=== PATIENT | female | born 1950 | race Caucasian/White ===

== ENCOUNTER 2016-11-16 08:07 | Outpatient (CLI) | payer OTHER | END 2016-11-16 08:08 | disposition home or self-care (01) | DX: Z00.00 Encounter for general adult medical examination without abnormal findings (principal) ==

== ENCOUNTER 2017-01-05 08:52 | Outpatient (CLI) | payer OTHER | END 2017-01-05 08:53 | disposition home or self-care (01) | DX: C79.51 Secondary malignant neoplasm of bone (principal); S73.191A Other sprain of right hip, initial encounter; M16.11 Unilateral primary osteoarthritis, right hip ==

== ENCOUNTER 2017-06-29 09:04 | Outpatient (CLI) | payer OTHER ==
[2017-06-29 13:42] LABS: HEMOGLOBIN A1C 0.83 g/dL
== END 2017-06-29 09:05 | disposition home or self-care (01) ==
LOC: LAB.WCP 09:04
PROVIDERS: ATTEND Physician Assistant Medical
DX: R73.9 Hyperglycemia, unspecified (principal)
CPT/HCPCS: 83036

== ENCOUNTER 2017-07-30 12:08 | Outpatient (CLI) | payer OTHER ==
[2017-07-30 19:39] LABS: THYROID STIMULATING HORMONE 4.71 uIU/mL (0.34-5.60)
== END 2017-07-30 12:09 | disposition home or self-care (01) ==
LOC: LAB.WCP 12:08
PROVIDERS: ATTEND Physician Assistant Medical
DX: C73 Malignant neoplasm of thyroid gland (principal); E03.9 Hypothyroidism, unspecified
CPT/HCPCS: 36415; 84432; 84439; 84443; 84481; 86800

== ENCOUNTER 2017-09-25 10:39 | Outpatient (CLI) | payer OTHER ==
[2017-09-25 12:01] LABS: THYROID STIMULATING HORMONE 1.5 uIU/mL (0.34-5.60)
== END 2017-09-25 10:40 | disposition home or self-care (01) ==
LOC: LAB 10:39
PROVIDERS: ATTEND Physician Assistant Medical
DX: E03.9 Hypothyroidism, unspecified (principal); Z79.899 Other long term (current) drug therapy
CPT/HCPCS: 36415; 84439; 84443; 84481

== ENCOUNTER 2017-11-28 11:38 | Outpatient (CLI) | payer MEDICARE, OTHER ==
[2017-11-28 17:31] LABS: HB2 TOTAL 14.6 g/dL; HEMOGLOBIN A1C 0.6 g/dL; HEMOGLOBIN A1C % 5.9 % (4.6-6.2)
== END 2017-11-28 11:39 | disposition home or self-care (01) ==
LOC: LAB 11:38
PROVIDERS: ATTEND Physician Assistant Medical
DX: E11.9 Type 2 diabetes mellitus without complications (principal); Z79.899 Other long term (current) drug therapy
CPT/HCPCS: 36415; 82947; 83036

== ENCOUNTER 2018-01-24 10:50 | Outpatient (CLI) | payer MEDICARE ==
--- NOTE | 2018-01-24 18:46 | CONSULTATION NOTE ---
Palliative Care Consultation - Referral Referring Provider: Dr. 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 The pain is multifactorial in origin, but mostly attributed to the lesions in her bones, with areas of intensity lower back; right hip, and now more intensely left hip. Her pain is currently been managed on fentanyl 25 mcg patch, originally had last for about 2 days, now lasting barely 24 hours. She is limited by her fact she cannot tolerate medications for breakthrough medication. When she gets desperate, she does use Dilaudid but needs to premedicate with antinausea medicine as well as Benadryl at times for itching. She describes her pain today at a 5 out of 10, but does exacerbate up to 8 out of 10, on a good day as in the first day of her patch reports 2 out of 10. Her pain is exacerbated with movement, weightbearing, and activity. That she tends to limit her activity and ambulation. She was originally diagnosed with metastatic carcinoid to the liver in 2014 secondary to symptoms of abdominal discomfort, diarrhea, flushing for which she was found to have a large hepatic mass. She did receive a partial hepatectomy , removing 60% of her liver, with some improvement in her symptoms for about 6-8 months. Unfortunately this was found to be neuroendocrine in nature, metastatic with unknown primary. She has had work ups regarding trying to find the primary, including colonoscopy, and small bowel evaluation via capsules. She also had diagnosed in 07/2015 at thyroid mass, and received a total thyroidectomy, with a diagnosis of Hurthie-cell, did not have time to recover from the first. She was found in May 2016 to have lesions to the spine, with a biopsy confirmed diagnosis to L2 08/2016. She also had knee surgery during this time, and recovery has been complicated because of her intolerance to opioids, she does have severe nausea and vomiting. She was found to have progressive bone mets she was started on monthly lanreotide and Xgeva. She did receive palliative radiation 05/2017 to her right hip and spine, initially with some response but now recurrent in severity. Her most recent imaging done on 11/07/2017 of pelvic MRI, shows increased metastatic bone lesions at the lumbar lower spine, sacrum, pelvis, and visualized proximal femurs which are new since previous study compared on 02/2016. As well as her thoracic MRI of the spine shows diffuse osseous metastatic disease, mild degenerative central canal stenosis and foraminal stenosis, but no evidence of cord or into canal soft tissue metastatic disease. I am concerned though are the size of the lesions at the T4 is 1.2 x 1 cm, 1.4 x 1.1 anterior T10 vertebral lesion. 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 When she followed up with radiation oncology again, she She understands that she is no longer a further candidate, or would benefit because of her disease burden and numerous lesions. Medical/Surgical History - Past Medical History Cardiovascular: reports: Hypertension Neuro: reports: None Endocrine/Autoimmune: reports: Type 2 diabetes (New diagnosis for her, has been attributed to her medication use, she has been quite frustrated in trying to address control.) GI: reports: GERD, Chronic diarrhea [employer] OPERATION: reports: Ovarian cysts (stable right ovarian cyst) : reports: Renal insuffiency HEENT: reports: Glaucoma Psych: reports: Depression (Reports exacerbation of depression after she had thyroid surgery, was started on been ofloxacin with some improvement, she reports she was "crying all the time". She is feeling with her uncontrolled pain, some persistent depressive symptoms.), Anxiety Musculoskeletal: reports: Osteoarthritis MRSA Hx?: No - Past Surgical History Ortho: reports: ACL reconstruction, Other Derm: reports: Debridement - Substance History Use: Uses substance without health or social issues: Alcohol (reports moderate use) Social History - Living Situation Living arrangement: At home Living Situation: With spouse/s.o. Support System: Patient is [place] [place]. She has lived on [place] for the last 15 years, came here via [facility]. 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 They do return to [place] frequently to see family. Her is a physics and astronomy professor, he recently retired as well. They are getting ready to go on a trip for a couple weeks in [place], it has been difficult with her rare diagnoses, to get information are really understand prognosis and expected journey with disease. Have two children. Family History - Family History Family History: Mother: (unknown), Hypertension ( of old age at 92) , Father: , Other family: Medications/Allergies - Medications Home Medications: Ambulatory Orders Medication Instructions Recorded Confirmed Hydrochlorothiazide 12.5 mg PO DAILY 08/31/15 01/24/18 Oxymetazoline HCl [Afrin] 2 spray NS QPM 08/31/15 01/24/18 Prochlorperazine [Compazine] 5 mg PO DAILY PRN 08/31/15 01/24/18 Losartan [Cozaar] 50 mg PO DAILY 10/26/15 01/24/18 diltiaZEM CD [Cardizem Cd] 180 mg PO DAILY 10/26/15 01/24/18 Levothyroxine Sodium 137 mcg PO DAILY 03/08/16 01/24/18 Omeprazole [PriLOSEC] 20 mg PO DAILY 03/08/16 01/24/18 Rizatriptan Benzoate [Rizatriptan] 5 mg PO ONCE 03/08/16 01/24/18 HYDROmorphone [Dilaudid] 2 - 4 mg PO Q4HR PRN 01/09/17 01/24/18 Venlafaxine [Effexor] 75 mg PO DAILY 01/09/17 01/24/18 Zolpidem [Ambien] 10 mg PO DAILY PM PRN 01/09/17 01/24/18 Lanreotide Acetate [Somatuline 120 mg SQ ONCE 04/10/17 01/24/18 Depot] metFORMIN [Glucophage] 500 mg PO BID 07/31/17 01/24/18 Timolol 0.5% Ophth Drops [Timoptic 1 drops EACHEYE BID 08/28/17 01/24/18 0.5% Ophth Drops] fentaNYL [Fentanyl 25mcg patch] 37 mcg TOP Q72H 12/18/17 01/24/18 Gabapentin 100 mg PO ACHS 01/24/18 01/24/18 - Allergies Allergies/Adverse Reactions: Allergies Allergy/AdvReac Type Severity Reaction Status Date / Time No Known Drug Allergies Allergy Verified 11/26/15 13:18 Review of Systems - Constitutional Constitutional: reports: Fatigue, Poor appetite, Weight loss - Eyes Eyes: reports: Vision loss, Corrective lenses - Ears, Nose & Throat Ears, Nose & Throat: reports: Nosebleeds - Cardiovascular Cardiovascular: reports: Decr. exercise tolerance. denies: Chest pain - Respiratory Respiratory: denies: Cough - Gastrointestinal Gastrointestinal: reports: Diarrhea (has loose stools with fluctuating pattern) , Nausea, Vomiting (has intermittent retching without warning nausea; has not attributed this to anything specific), Poor appetite, Early satiety. denies: Reflux/heartburn - Genitourinary Genitourinary: reports: Frequency - Musculoskeletal Musculoskeletal: reports: Back pain, Muscle aches, Stiffness, Limited range of motion, Muscle weakness, Joint pain - Integumentary Integumentary: reports: Dryness - Neurological Neurological: reports: General weakness - Psychiatric Psychiatric: reports: Depression, Anxiety - Endocrine Endocrine: reports: Diabetes type 2 - Hematologic/Lymphatic Hematologic/Lymphatic: denies: Recurrent infections - All Other Systems All Other Systems: reports: Reviewed and negative Physical Exam - Vital Signs Temperature: 37.3 C Pulse Rate: 99 Respiratory Rate: 18 Blood Pressure: 131/93 - Physical Exam General Appearance: positive: Mild distress Eyes Bilateral: positive: Normal inspection, No scleral icterus ENT: positive: No signs of dehydration Neck: positive: Trachea midline Cardiovascular: positive: Tachycardia (reports at baseline is usually elevated) Respiratory: positive: Breath sounds nml Abdomen: positive: Soft, Nml bowel sounds Skin: positive: Pallor Extremities: positive: No pedal edema Neurologic/Psychiatric: positive: Oriented x3, Depressed mood/affect, Flat affect Palliative Care - POLST Patient has POLST: No Pain: Pain worsening, Location (see HPI new/worsening in left hip; right hip; back and radiating around to rib area) Tiredness/Fatigue: Moderate (4-6) Drowsiness/Sedation: Mild (1-3) Nausea: None Depression: Moderate (4-6) (Patient does describe persistent feelings of depressive symptoms, some increased perceptions of herself being depressed, appears tends to isolate self, is withdrawn from many social activities, this is unclear to tease out if this is depression or mostly pain.) Anxiety: Moderate (4-6) (Noted some underlying anxiety regarding talking about overall expectation of disease trajectory, seriousness of illness, and "the complexity" of her care and few [id number] answers. She does report they have found an online community, as well as a conference that they have attended for those who are having similar experiences with rare cancers.) Dyspnea: None Anorexia: Moderate (4-6) (Patient does appear to have some early satiety, decreased intake, with recent 10 pound weight loss.) Sleep: Sleeps poorly Feelings of wellbeing/Perceived Quality of Life: Poor, Worsening Performance Status: Patient ambulating, but does demonstrate pain behaviors with sitting to standing , and weightbearing. She does ambulate a short distances. She is able to do her own ADLs. I suspect her activity is quite limited by her pain. I would put her at a palliative care performance status of 70% - Palliative Care Discussion: Patient has felt poorly for several years, most recently with exacerbation of pain has limited her activity and activity tolerance. She has had difficulty finding adequate pain control given her intolerance of opioids, with severe nausea and vomiting. Is able to reflect some on the impact of her quality of life, which has decreased significantly, with exacerbation of her depression. Has been recently retired, hoping to travel, many unknowns regarding her functional status and prognosis. Perceives quality of life as decreasing. Results - Lab Results Lab results reviewed: Yes Impression and Recommendations - Palliative Care Impression: This is a oliver 67-year-old woman with metastatic carcinoid tumor involving the liver, unknown primary, status post liver mastectomy and metastatic disease to multiple bones. She presents with uncontrolled pain related to her bony metastases. She does have high symptom burden, including pain, fatigue, anorexia, recent weight loss, depression, anxiety, and decreased functional status. Palliative care visit today to establish rapport, and will be following for pain and symptom management. Recommendations/Counseling Done: 1. Pain of neoplastic origin. Given patient's multiple opioid intolerances, would recommend we trial methadone. I suspect given she does have some mild central stenosis in T10-T11, would benefit from a NMDA component as well as opioid receptors. Would recommend we trial methadone 2.5 mg prior to rotation to total from Fentanyl to evaluate if able to tolerate without nausea and vomiting. Patient baseline tachycardia, would like to get EKG prior to get QTc, has not had one in [facility] recently. Given patient leaving town tomorrow, discussed would like to wait until home and can evaluate response, particularly if she has a negative do not want this to interfere with her vacation. Patient' s pain is poorly controlled, will go ahead and increase her fentanyl 25 mcg to 37, will add 12 mcg patch. They have been instructed if she has untoward effects, or sedation can remove but would recommend increasing the baseline dose. Also given the need to evaluate another mode of medication, and to support her pain management, did initiate gabapentin 100 mg at at bedtime, will evaluate her tolerance and side effects and titrate this up slowly, prescriptions given for both fentanyl and gabapentin. Equal analgesic for endpoint for methadone if patient tolerates 37 would be 17 mg in 24 hours, her current dosing would be 12 mg. Will initiate if patient wants to move forward, at appointment on returning. They will contact me if there is any questions, would recommend continuing titrating gabapentin up to tolerance. 2. Diabetes type 2. Patient with questions regarding her blood sugars, her a.m. blood sugars have been running about 160. She has gone per her report from a A1c of 7.6-5.9. Given patient's history of diarrhea, I am wondering if she would not do better on Lantus. Would consider referral to diabetic management, for continuous monitoring, and transition based on this. I suspect her diabetes is complicated by her disease process and liver function. 3. Anorexia. Patient has had 10 pound weight loss over the last few months. Reports this is to do with early satiety, taste changes. She has been using Ensure only one can, we did discuss increasing caloric intake, this could include things such as puddings, protein bars, things that are not quite as filling as shake. 4. Fatigue. This is multifactorial in origin, I suspect much of her activity is limited by her pain, is encouraged trying to find a balance with activity level and energy. I suspect this is also impacted somewhat by her depression. 5. Depression. Counseling provided to normalize her current grief and loss process, given the uncertainty in the face of her diagnosis. She was can ask her primary care provider to increase her consider increasing her been ofloxacin , would be in agreement with this. If she does not see her prior to her next appointment will go ahead and recommend increased dosing. 6. Diarrhea. Patient tends to have frequent loose stools, is not using Imodium. We did discuss in the context of fluid status, metabolic balance, would be good to keep this down to 1-2 episodes a day. Counseling provided to encourage use of Imodium and, if not effective can look at Lomotil. 7. Advanced care planning patient living with serious illness, some unknowns regarding prognosis and diagnosis causing increased anxiety and concern. Certainly the sequela of any kind of fracture with her bone metastases, would further add to her demise and concerns regarding quality of life. Will see patient on a regular basis, as build rapport, will address advanced directives as well. Time Spent: 60 minutes with greater than 50% of this done in counseling regarding options regarding pain management and goals for improving functionality. Palliative care to follow and provide anticipatory guidance and support.
== END 2018-01-24 10:51 | disposition home or self-care (01) ==
LOC: PC 10:50
PROVIDERS: ATTEND Nurse Practitioner Adult Health
DX: Z51.5 Encounter for palliative care (principal); G89.3 Neoplasm related pain (acute) (chronic); C78.7 Secondary malignant neoplasm of liver and intrahepatic bile duct; C79.51 Secondary malignant neoplasm of bone; E11.9 Type 2 diabetes mellitus without complications; R63.0 Anorexia; R53.83 Other fatigue; F32.9 Major depressive disorder, single episode, unspecified; R19.7 Diarrhea, unspecified; R11.2 Nausea with vomiting, unspecified; Z79.4 Long term (current) use of insulin; Z79.891 Long term (current) use of opiate analgesic
CPT/HCPCS: 99205

== ENCOUNTER 2018-02-12 14:02 | Outpatient (CLI) | payer MEDICARE, OTHER ==
[2018-02-12 15:04] LABS: HB2 TOTAL 14.3 g/dL; HEMOGLOBIN A1C 0.58 g/dL; HEMOGLOBIN A1C % 5.9 % (4.6-6.2)
[2018-02-12 15:27] LABS: THYROID STIMULATING HORMONE 1.96 uIU/mL (0.34-5.60)
[2018-02-12 15:28] LABS: FREE T4 (FREE THYROXINE) 0.86 ng/dL (0.58-1.64)
[2018-02-13 14:01] LABS: HEPATITIS C ANTIBODY NON-REACTIVE (NON-REACTIVE)
== END 2018-02-12 14:03 | disposition home or self-care (01) ==
LOC: LAB 14:02
PROVIDERS: ATTEND Physician Assistant Medical
DX: D75.89 Other specified diseases of blood and blood-forming organs (principal); E11.9 Type 2 diabetes mellitus without complications; E03.9 Hypothyroidism, unspecified; Z79.899 Other long term (current) drug therapy; Z11.59 Encounter for screening for other viral diseases
CPT/HCPCS: 36415; 82607; 83036; 84439; 84443; 84481; 86803

== ENCOUNTER 2018-02-12 14:30 | Outpatient (CLI) | payer MEDICARE, OTHER ==
--- NOTE | 2018-02-12 20:35 | CONSULTATION NOTE ---
Palliative Care Follow Up - Referral Referring Provider: Dr. Monica Thomas Time of Visit: [id number] Referral setting: 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 Her most impactful symptom as far as her quality of life is her pain, this is multifactorial in origin, but mostly can be attributed to the lesions in her bones. The areas of intensity are her lower back, right hip, and now most intensely in her left hip. I had increased her fentanyl to 37.5 mg, and initiated gabapentin at 100 mg at bedtime. She has been limited by the fact she has significant intolerance to opioids, include uncontrolled nausea and vomiting. She reports her pain is improved, her patches lasting the 3 days, her pain rating today is 2 out of 10. On observation she does get from sitting to standing better she is walking a little bit more comfortably, and is able to report her pain is better. She has been recently on a road trip with her , and did fairly well with the titration. She still continues with fatigue, poor activity tolerance, she has had fluctuating diarrhea, it does increase in frequency about 2-3 times a day closer to the time of her shot. She saw her primary care provider Sherry hawkins yesterday, and they did increase her Effexor. She is scheduled to see the oncologist today as well, she does receive monthly lanreotide and Xgeva. Social History - Living Situation Living arrangement: At home Living Situation: With spouse/s.o. Support System: has recently retired, they have taken an RV trip, which does sound like went well. She [place] go [place], this is her home, she is looking forward to her trip. Medications/Allergies - Medications Home Medications: Ambulatory Orders Medication Instructions Recorded Confirmed Hydrochlorothiazide 12.5 mg PO DAILY 08/31/15 02/12/18 Oxymetazoline HCl [Afrin] 2 spray NS QPM 08/31/15 02/12/18 Prochlorperazine [Compazine] 5 mg PO DAILY PRN 08/31/15 02/12/18 Losartan [Cozaar] 50 mg PO DAILY 10/26/15 02/12/18 diltiaZEM CD [Cardizem Cd] 180 mg PO DAILY 10/26/15 02/12/18 Levothyroxine Sodium 137 mcg PO DAILY 03/08/16 02/12/18 Omeprazole [PriLOSEC] 20 mg PO DAILY 03/08/16 02/12/18 Rizatriptan Benzoate [Rizatriptan] 5 mg PO ONCE 03/08/16 02/12/18 HYDROmorphone [Dilaudid] 2 - 4 mg PO Q4HR PRN 01/09/17 02/12/18 Venlafaxine [Effexor] 3 tab PO DAILY 01/09/17 02/12/18 Zolpidem [Ambien] 10 mg PO DAILY PM PRN 01/09/17 02/12/18 Lanreotide Acetate [Somatuline 120 mg SQ ONCE 04/10/17 02/12/18 Depot] metFORMIN [Glucophage] 500 mg PO BID 07/31/17 02/12/18 Timolol 0.5% Ophth Drops [Timoptic 1 drops EACHEYE BID 08/28/17 02/12/18 0.5% Ophth Drops] fentaNYL [Fentanyl 25mcg patch] 37.5 mcg TOP Q72H 12/18/17 02/12/18 Gabapentin 300 mg PO ACHS 01/24/18 02/12/18 Loperamide [Imodium] 2 mg PO DAILY PRN 01/29/18 02/12/18 - Allergies Allergies/Adverse Reactions: Allergies Allergy/AdvReac Type Severity Reaction Status Date / Time No Known Drug Allergies Allergy Verified 11/26/15 13:18 Review of Systems - Constitutional Constitutional: reports: Fatigue, Poor appetite, Weight loss - Ears, Nose & Throat Ears, Nose & Throat: reports: Nasal congestion - Cardiovascular Cardiovascular: reports: Decr. exercise tolerance - Gastrointestinal Gastrointestinal: reports: Diarrhea, Vomiting (has had episodes of vomiting without nausea;), Bloating, Poor appetite (taste changes; doesn't like meat), Early satiety - Genitourinary Genitourinary: reports: Frequency (at bedtime; R/O UA yesterday at provider visit) - Musculoskeletal Musculoskeletal: reports: Stiffness, Limited range of motion (bilateral hips), Muscle weakness - Neurological Neurological: reports: General weakness - Psychiatric Psychiatric: reports: Depression (did get antidepressant increased) - Endocrine Endocrine: reports: Diabetes type 2 (has "shakes at times" taking BS through day to get sense of fluctuations as AIC had improved) - Hematologic/Lymphatic Hematologic/Lymphatic: denies: Anemia, Recurrent infections - All Other Systems All Other Systems: reports: Reviewed and negative Physical Exam - Vital Signs Temperature: 36.9 C Pulse Rate: 94 Respiratory Rate: 18 Blood Pressure: 122/80 - Physical Exam General Appearance: positive: No acute distress Eyes Bilateral: positive: Normal inspection ENT: positive: No signs of dehydration Neck: positive: Trachea midline Cardiovascular: positive: Other (EKG from MD visit without QT prolongation; NSR) Respiratory: positive: No respiratory distress Skin: positive: Pallor, Dryness Extremities: positive: No pedal edema Neurologic/Psychiatric: positive: Oriented x3, Mood/affect nml Palliative Care - POLST Patient has POLST: No Pain: Pain improved, Location (See HPI) Tiredness/Fatigue: Moderate (4-6) Drowsiness/Sedation: None Nausea: None Depression: Mild (1-3) Anxiety: None Dyspnea: None Anorexia: Mild (1-3) Sleep: Variable sleep pattern (up for frequency) Constipation: No Feelings of wellbeing/Perceived Quality of Life: Fair, Acceptable, Improved Performance Status: Patient has not increased activity significantly, but is feeling like she is moving easier. 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 She is feeling somewhat encouraged with her pain improved, she did have a nice trip in the with her . Is looking forward to going to [place] next month. Continue to work on building rapport and trust. Results - Lab Results Lab results reviewed: Yes Impression and Recommendations - Palliative Care Impression: This is a oliver 67-year-old woman with metastatic carcinoid tumor involving the liver, unknown primary, status post liver resection for metastatic disease to multiple bones. She does present today with improved pain control, though continues with high symptom burden including fatigue, anorexia, and decreased functional status. Palliative care to continue to provide support for pain and symptom management. Recommendations/Counseling Done: 1. Pain of neoplastic origin. Counseling regarding continuing current regimen of fentanyl, does appear she is tolerating without undue side effects, it is lasting to 3 days with the increase to 37 mcg. She is getting some relief, I suspect it is in combination with the gabapentin. We did discuss increasing the gabapentin slowly, secondary to her multiple medication reactions. She will increase to 200 mg for 1 week, then up to 300 mg for 1 week, and then we will discuss. We did discuss as a "plan B" that methadone is still an option to trial, given her current response and is tolerating this without difficulty, will continue with current regimen. She did though get a EKG, her QTC was within normal limits and without concern. 2. Diabetes type 2. She did meet with her primary care Sherry hawkins yesterday , continue to weigh benefits and burdens, particularly with concern the Metformin adding to her diarrhea. Patient's blood sugars to see him though to fluctuate through the day, or taking intermittent blood sugars, discussed ongoing continuous measuring device, I did give her permission to contact Sherry regarding a referral for continuous monitoring and recommendations for management. 3. Anorexia. Patient reports she may have lost more weight, this is related to early satiety, taste changes. She is using the boost, her perception is she does not like breakfast, but is doing lunch, and less for dinner. Did discuss the options for pharmacologic intervention, which include Megace that the evidence is not great as far as efficacy, dexamethasone but given we are trying to stabilize her blood sugars this would not be a good option, she recently just increased her Effexor this may be of help, so would not want to change her to mirtazapine, and the last would be cannabis for which she is not too thrilled to pursue. We did discuss on the ice a days for her to get out, fresh air, she is going to [place] she does like the food of local markets. We also discussed and counseled improved pain management and depression may improve her intake as well. 4. Fatigue. This is multifactorial in origin. As patient's pain improves, counseling regarding increasing activity. She is hesitant as does not want exacerbate her pain. We did discuss a referral for physical therapy/pool therapy. Also encouraged on her trip and [place] to pull walking, given her bony metastases the buoyancy of the water often helps with strength training which would be of help for protecting her bones as well. Suspect she has had some muscle wasting with her weight loss. Did encourage her for ambulation progressive. 5. Depression. Patient is having her Effexor increased to 3 tabs, again encouraged decrease isolation. 6. Diarrhea. Patient has not increased her use of Imodium, she does tend to have increased frequency closer to her shot, she does not feel this is an problematic at this point in time. 7. Advanced care planning. This was not addressed today. Time Spent: 40 minutes with greater than 50% of this done in counseling regarding pain and symptom management coordination of care with PCP for diabetic referral, and anticipatory guidance
== END 2018-02-12 14:31 | disposition home or self-care (01) ==
LOC: PC 14:30
PROVIDERS: ATTEND Nurse Practitioner Adult Health
DX: Z51.5 Encounter for palliative care (principal); G89.3 Neoplasm related pain (acute) (chronic); C78.7 Secondary malignant neoplasm of liver and intrahepatic bile duct; C79.51 Secondary malignant neoplasm of bone; R63.0 Anorexia; R53.83 Other fatigue; F32.9 Major depressive disorder, single episode, unspecified; R19.7 Diarrhea, unspecified; Z79.4 Long term (current) use of insulin; Z79.891 Long term (current) use of opiate analgesic; M62.81 Muscle weakness (generalized)
CPT/HCPCS: 99215

== ENCOUNTER 2018-03-04 09:05 | Outpatient (CLI) | payer MEDICARE, OTHER ==
[2018-03-04 09:43] LABS: CHOL/HDL RATIO 2.5 (<4.4); CHOLESTEROL 266 mg/dL; HDL CHOLESTEROL 107 mg/dL; LDL CHOLESTEROL,CALCULATED 130 mg/dL; LDL/HDL RATIO 1.2 (<4.4); VLDL CHOLESTEROL 29 mg/dL
== END 2018-03-04 09:06 | disposition home or self-care (01) ==
LOC: LAB 09:05
PROVIDERS: ATTEND Physician Assistant Medical
DX: E78.5 Hyperlipidemia, unspecified (principal)
CPT/HCPCS: 36415; 80061; 83721

== ENCOUNTER 2018-03-07 11:45 | Outpatient (CLI) | payer MEDICARE, OTHER ==
--- NOTE | 2018-03-07 19:24 | CONSULTATION NOTE ---
Palliative Care Follow Up - Referral Referring Provider: Dr. Monica Thomas Time of Visit: [id number] [place] [facility] [place] Reason: Pain of neoplastic origin/bone mets - Information Sources Records reviewed: Previous records reviewed History/Review of Systems obtained from: Patient, Family ( Werner at visit) Exam limitations: No limitations - History of Present Illness Update Brief HPI Update: This is a oliver 67-year-old woman who has a complex history regarding her rare cancer, she has metastatic carcinoid to the liver and bones with unknown primary. She does have fairly high symptom burden, with pain, fatigue, intermittent nausea and vomiting, anorexia, and weight loss. Goal is to focus on things to improve quality of life, while living with the uncertainty of her prognosis. Social History - Living Situation Living arrangement: At home Living Situation: With spouse/s.o. (spouse recently retired; planning trip back to [facility] to visit family; three children-one in [facility]) Medications/Allergies - Medications Home Medications: Ambulatory Orders Medication Instructions Recorded Confirmed Hydrochlorothiazide 12.5 mg PO DAILY 08/31/15 03/07/18 Oxymetazoline HCl [Afrin] 2 spray NS QPM 08/31/15 03/07/18 Prochlorperazine [Compazine] 5 mg PO Q6HR PRN 08/31/15 03/07/18 Losartan [Cozaar] 50 mg PO DAILY 10/26/15 03/07/18 diltiaZEM CD [Cardizem Cd] 180 mg PO DAILY 10/26/15 03/07/18 Levothyroxine Sodium 137 mcg PO DAILY 03/08/16 03/07/18 Omeprazole [PriLOSEC] 20 mg PO DAILY 03/08/16 03/07/18 Rizatriptan Benzoate [Rizatriptan] 5 mg PO ONCE 03/08/16 03/07/18 HYDROmorphone [Dilaudid] 2 - 4 mg PO Q4HR PRN 01/09/17 03/07/18 Venlafaxine [Effexor] 3 tab PO DAILY 01/09/17 03/07/18 Zolpidem [Ambien] 10 mg PO DAILY PM PRN 01/09/17 03/07/18 Lanreotide Acetate [Somatuline 120 mg SQ ONCE 04/10/17 03/07/18 Depot] metFORMIN [Glucophage] 500 mg PO QDBREAKFAST 07/31/17 03/07/18 Timolol 0.5% Ophth Drops [Timoptic 1 drops EACHEYE BID 08/28/17 03/07/18 0.5% Ophth Drops] fentaNYL [Fentanyl 25mcg patch] 37.5 mcg TOP Q72H 12/18/17 03/07/18 Gabapentin 300 mg PO QPM 01/24/18 03/07/18 Loperamide [Imodium] 2 mg PO DAILY PRN 01/29/18 03/07/18 Metformin HCl [Metformin HCl ER] 500 mg PO QPM 03/06/18 03/07/18 - Allergies Allergies/Adverse Reactions: Allergies Allergy/AdvReac Type Severity Reaction Status Date / Time No Known Drug Allergies Allergy Verified 11/26/15 13:18 Review of Systems - Constitutional Constitutional: reports: Fatigue, Poor appetite, Weight loss - Ears, Nose & Throat Ears, Nose & Throat: reports: Other (taste changes; dislikes protien) - Cardiovascular Cardiovascular: reports: Decr. exercise tolerance - Respiratory Respiratory: reports: SOB with exertion - Gastrointestinal Gastrointestinal: reports: Nausea (intermittent; fluctuating; no pattern; bad day Sunday with retching; uses compazine with relief), Poor appetite, Early satiety. denies: Diarrhea - Musculoskeletal Musculoskeletal: reports: Muscle weakness - Integumentary Integumentary: reports: Dryness - Neurological Neurological: reports: General weakness - Psychiatric Psychiatric: reports: Depression (improved from baseline) - Endocrine Endocrine: reports: Diabetes type 2 (working with [employer]; will use continous monitor on return from vacation) - All Other Systems All Other Systems: reports: Reviewed and negative Physical Exam - Physical Exam General Appearance: positive: No acute distress Eyes Bilateral: positive: Normal inspection Respiratory: positive: No respiratory distress Neurologic/Psychiatric: positive: Oriented x3, Mood/affect nml Palliative Care - POLST Patient has POLST: No Pain: Pain improved, Location (Pain mostly in pelvis, no pain at rest, most the pain comes from weightbearing and prolonged ambulation, this is mostly noted bilaterally in her hips on today's left greater than right, she does feel her current regimen of fentanyl 37 mcg and gabapentin 300 mg at night is working, does not feel like she needs adjustments, though of note she will be increasing activity as she travels.) Tiredness/Fatigue: Moderate (4-6) Drowsiness/Sedation: None (does take nap daily; not change from baseline) Nausea: Moderate (4-6) Depression: Mild (1-3) Anxiety: Mild (1-3) Dyspnea: None Anorexia: Moderate (4-6), Weight loss Sleep: Variable sleep pattern Constipation: No - Palliative Care Discussion: Patient had MRI for follow-up on disease progression, both she and her are somewhat anxious regarding the results. Reflection on just the complicated journey they have been on, with multiple unknowns, concerned about unknown prognosis, and what to expect in the future. Patient and 's understanding is currently patient is with metastases to the bone, but worried about progression and the sequela what that might mean, particularly if it impact might mean disability or more so impact on her function in the future. Both feeling somewhat unsettled, acknowledged the feelings normalized to feelings of grief and loss particularly with a rare cancer and little information to guide the way. Impression and Recommendations - Palliative Care Impression: This is a oliver 67-year-old woman with metastatic carcinoid tumor involving the liver, unknown primary, status post liver resection and metastatic disease to multiple bones. Patient presents today with pain fairly well controlled, high anxiety regarding pending outcome of exams, but has been somewhat more active though still has considerable fatigue. Palliative care to continue provide support for pain and symptom management and anticipatory guidance in the context of an unknown trajectory Recommendations/Counseling Done: 1. Pain of neoplastic origin. Patient's current regimen is working well, discussed titration of fentanyl versus gabapentin, decision was made to give her gabapentin 100 mg capsules, as she increase her activity her finds increase in pain will add 100 mg in the a.m. every 4 days up to 600 mg unless experiences undue side effects or reaches goal of accepted pain control. 2. Diabetes type 2. She is meeting With test driller, will be working in the future and trying to mitigate some of her particular hypoglycemic episodes. 3. Weight loss. Counseling regarding integrating supplements into her daily routine and plan, does feel like she will do better when she is back in [place], with her "comfort foods". Did encourage small frequent meals, she does have taste dislikes regarding protein, recommended supplementing with Ensure/boost- like products. 4. Fatigue. This is multifactorial in origin. Patient has been more active, did encourage again when she is traveling to consider increased activity in the pool with pull walking. 5. Nausea/vomiting. Did encourage at first sign of nausea or discomfort to take her Compazine, not to let it and progressed to retching and vomiting. Patient acknowledged she tends to "cut it out". 6. anxiety. Patient with acknowledge concerns regarding the uncertainty of her journey, prognosis, and upcoming scans. Supportive listening provided. On prescriptions provided for fentanyl patch, gabapentin 300s, and gabapentin 100. Will make contact after she returns from her trip to set new appointment, will await outcome of scans for further identification of support needs. Palliative care continue to provide support and building rapport.
== END 2018-03-07 11:46 | disposition home or self-care (01) ==
LOC: PC 11:45
PROVIDERS: ATTEND Nurse Practitioner Adult Health
DX: Z51.5 Encounter for palliative care (principal); G89.3 Neoplasm related pain (acute) (chronic); C79.51 Secondary malignant neoplasm of bone; E11.9 Type 2 diabetes mellitus without complications; R63.4 Abnormal weight loss; R53.83 Other fatigue; R11.2 Nausea with vomiting, unspecified; F41.9 Anxiety disorder, unspecified; Z79.84 Long term (current) use of oral hypoglycemic drugs; Z79.891 Long term (current) use of opiate analgesic; M62.81 Muscle weakness (generalized); F32.9 Major depressive disorder, single episode, unspecified
CPT/HCPCS: 99215

== ENCOUNTER 2018-03-13 13:47 | Outpatient (CLI) | payer MEDICARE, OTHER ==
--- NOTE | 2018-03-18 12:05 | Mammography Report ---
DIGITAL SCREENING MAMMOGRAM: 03/13/2018 CLINICAL INDICATION: A 67-year-old for screening. COMPARISON: 08/2016, 02/2014, 08/2012, 06/2010. TECHNIQUE: Routine CC and MLO projections were obtained of the breasts. FINDINGS: The breasts again demonstrate scattered fibroglandular densities bilaterally. Coarse and punctate, typically benign calcifications are present. No suspicious masses, clustered microcalcifications, or regions of architectural distortion are identified. IMPRESSION: BENIGN FINDINGS. RECOMMENDATION: Routine annual screening unless otherwise clinically indicated. BI-RADS CATEGORY 2 - BENIGN FINDINGS. STANDARD QUALIFYING STATEMENTS: 1. This examination was reviewed with the aid of Computer-Aided Detection (CAD). 2. A negative or benign imaging report should not delay biopsy if clinically suspicious findings are present. Consider surgical consultation if warranted. More than 5% of cancers are not identified by imaging. 3. Dense breasts may obscure an underlying neoplasm. TD: 03/18/2018 11:45
== END 2018-03-13 13:48 | disposition home or self-care (01) ==
LOC: DI.N 13:47
PROVIDERS: ATTEND Physician Assistant Medical
DX: Z12.31 Encounter for screening mammogram for malignant neoplasm of breast (principal)
CPT/HCPCS: 77067

== ENCOUNTER 2018-04-09 13:48 | Outpatient (CLI) | payer MEDICARE, OTHER ==
--- NOTE | 2018-04-09 22:02 | CONSULTATION NOTE ---
Palliative Care Follow Up - Referral Referring Provider: Dr. 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 She recently returned from her vacation in [place] for 3 weeks, but does present with increased pain and discomfort, and she is visibly upset with the news of more progression of her disease. She is awaiting the final approval of her new chemotherapeutic drug everolimus, which will be oral combined with her Lanreotide. She is currently on gabapentin 300 mg twice daily, fentanyl 37.5 mcg and was instructed earlier this week to add 12, as it was worsening she added 25 for a total of 62.5 mcg and is still finding a fairly significant level of discomfort particularly bilaterally in her shoulders left greater than right. She does have her baseline spinal pain as well as bilateral hip pain. Social History - Living Situation Living arrangement: At home Living Situation: With spouse/s.o. (They have recently returned from [place] where she feels very supported by her family.) Medications/Allergies - Medications Home Medications: Ambulatory Orders Medication Instructions Recorded Confirmed Hydrochlorothiazide 12.5 mg PO DAILY 08/31/15 04/09/18 Oxymetazoline HCl [Afrin] 2 spray NS QPM 08/31/15 04/09/18 Prochlorperazine [Compazine] 5 mg PO Q6HR PRN 08/31/15 04/09/18 Losartan [Cozaar] 50 mg PO DAILY 10/26/15 04/09/18 [id number] CD [Cardizem Cd] 180 mg PO DAILY 10/26/15 04/09/18 Levothyroxine Sodium 137 mcg PO DAILY 03/08/16 04/09/18 Omeprazole [PriLOSEC] 20 mg PO DAILY 03/08/16 04/09/18 Rizatriptan Benzoate [Rizatriptan] 5 mg PO ONCE 03/08/16 04/09/18 HYDROmorphone [Dilaudid] 2 - 4 mg PO Q4HR PRN 01/09/17 04/09/18 Venlafaxine [Effexor] 3 tab PO DAILY 01/09/17 04/09/18 Zolpidem [Ambien] 10 mg PO DAILY PM PRN 01/09/17 04/09/18 Lanreotide Acetate [Somatuline 120 mg SQ ONCE 04/10/17 04/09/18 Depot] metFORMIN [Glucophage] 500 mg PO QDBREAKFAST 07/31/17 04/09/18 Timolol 0.5% Ophth Drops [Timoptic 1 drops EACHEYE BID 08/28/17 04/09/18 0.5% Ophth Drops] fentaNYL [Fentanyl 25mcg patch] 62.5 mcg TOP Q72H 12/18/17 04/09/18 Gabapentin 300 mg PO BID 01/24/18 04/09/18 Loperamide [Imodium] 2 mg PO DAILY PRN 01/29/18 04/09/18 Metformin HCl [Metformin HCl ER] 500 mg PO QPM 03/06/18 04/09/18 - Allergies Allergies/Adverse Reactions: Allergies Allergy/AdvReac Type Severity Reaction Status Date / Time No Known Drug Allergies Allergy Verified 11/26/15 13:18 Review of Systems - Constitutional Constitutional: reports: Fatigue - Gastrointestinal Gastrointestinal: reports: Good appetite (did well in [place] with her comfort foods). denies: Diarrhea, Nausea, Vomiting (retching has decreased) - Musculoskeletal Musculoskeletal: reports: Stiffness, Limited range of motion, Muscle weakness - All Other Systems All Other Systems: reports: Other (limited ROS focused review on pain given distress) Physical Exam - Physical Exam General Appearance: positive: Moderate distress Eyes Bilateral: positive: Normal inspection ENT: positive: No signs of dehydration Neck: positive: Trachea midline Respiratory: positive: No respiratory distress Skin: positive: Dryness Extremities: positive: No pedal edema Neurologic/Psychiatric: positive: Oriented x3, Depressed mood/affect (tearful) Palliative Care - POLST Patient has POLST: No Pain: Pain worsening, Location (see HPI) Tiredness/Fatigue: Moderate (4-6) Drowsiness/Sedation: None Nausea: None Depression: None Anxiety: None Dyspnea: None Anorexia: None Constipation: No - Palliative Care Discussion: Patient feeling overwhelmed with most recent oncology visit, discussed we could just focus on her pain and revisit other issues at follow-up visit, she is in agreement with this. Impression and Recommendations - Palliative Care Impression: This is a oliver 67-year-old woman with metastatic carcinoid now with progressive disease in the liver, progressive bone metastases, with increasing pain and new metastatic disease noted in shoulder. Palliative care to provide ongoing support for pain and symptom management, with focus on pain today. Recommendations/Counseling Done: 1. Pain of neoplastic origin. At this point in time it is on hold for radiation as it only lasted a few weeks last time for her without significant relief, will focus on pain medications currently and revisit later to point if needed. Given patient's description of her pain sharp shooting pains down radiating from her shoulder, she is currently on gabapentin 300 mg twice daily, first step will be to increase her gabapentin to 3 times daily. Patient denies any increase in sedation with increase with this. She is currently just increased her fentanyl patch to 62.5 mcg, Still has some 37.5 patches left, prescription was given for 25 mcg patches, requested she try a few patch changes while awaiting response to the gabapentin, but if significantly increased pain will go ahead and move her up to 75 mcg of fentanyl. Prescription given for 10 patches. Written instructions were provided, and agreed to follow-up on Sunday if further questions or different strategy needed. 2. Depression. Normalized grief and loss process regarding this, patient does appear to be and has expressed she is an introvert related to her feelings, will continue to offer opportunities for support if accepted. Otherwise will honor and allow patient to take the lead on processing her news of disease progression. Time Spent: 30 minutes with greater than 50% of this done on counseling regarding pain and titration safety.
== END 2018-04-09 13:49 | disposition home or self-care (01) ==
LOC: PC 13:48
PROVIDERS: ATTEND Nurse Practitioner Adult Health
DX: Z51.5 Encounter for palliative care (principal); G89.3 Neoplasm related pain (acute) (chronic); C78.7 Secondary malignant neoplasm of liver and intrahepatic bile duct; C79.51 Secondary malignant neoplasm of bone; F32.9 Major depressive disorder, single episode, unspecified; Z79.891 Long term (current) use of opiate analgesic
CPT/HCPCS: 99214

== ENCOUNTER 2018-04-12 14:35 | Outpatient (CLI) | payer MEDICARE, OTHER ==
--- NOTE | 2018-04-12 17:48 | CONSULTATION NOTE ---
Palliative Care Follow Up - Referral Referring Provider: Dr. Monica Thomas Time of Visit: [id number] [place] [facility] [place] Reason: Pain of neoplastic origin - Information Sources Records reviewed: Previous records reviewed Medications/Allergies - Medications Home Medications: Ambulatory Orders Medication Instructions Recorded Confirmed Hydrochlorothiazide 12.5 mg PO DAILY 08/31/15 04/09/18 Oxymetazoline HCl [Afrin] 2 spray NS QPM 08/31/15 04/09/18 Prochlorperazine [Compazine] 5 mg PO Q6HR PRN 08/31/15 04/09/18 Losartan [Cozaar] 50 mg PO DAILY 10/26/15 04/09/18 [id number] CD [Cardizem Cd] 180 mg PO DAILY 10/26/15 04/09/18 Levothyroxine Sodium 137 mcg PO DAILY 03/08/16 04/09/18 Omeprazole [PriLOSEC] 20 mg PO DAILY 03/08/16 04/09/18 Rizatriptan Benzoate [Rizatriptan] 5 mg PO ONCE 03/08/16 04/09/18 HYDROmorphone [Dilaudid] 2 - 4 mg PO Q4HR PRN 01/09/17 04/09/18 Venlafaxine [Effexor] 3 tab PO DAILY 01/09/17 04/09/18 Zolpidem [Ambien] 10 mg PO DAILY PM PRN 01/09/17 04/09/18 Lanreotide Acetate [Somatuline 120 mg SQ ONCE 04/10/17 04/09/18 Depot] metFORMIN [Glucophage] 500 mg PO QDBREAKFAST 07/31/17 04/09/18 Timolol 0.5% Ophth Drops [Timoptic 1 drops EACHEYE BID 08/28/17 04/09/18 0.5% Ophth Drops] fentaNYL [Fentanyl 25mcg patch] 62.5 mcg TOP Q72H 12/18/17 04/09/18 Gabapentin 300 mg PO BID 01/24/18 04/09/18 Loperamide [Imodium] 2 mg PO DAILY PRN 01/29/18 04/09/18 Metformin HCl [Metformin HCl ER] 500 mg PO QPM 03/06/18 04/09/18 - Allergies Allergies/Adverse Reactions: Allergies Allergy/AdvReac Type Severity Reaction Status Date / Time No Known Drug Allergies Allergy Verified 11/26/15 13:18
--- NOTE | 2018-04-12 17:59 | CONSULTATION NOTE ---
Palliative Care Follow Up - Referral Referring Provider: Dr. Monica Thomas Time of Visit: [id number] Referral setting: [facility] [place] Reason: Pain of neoplastic origin/Depression - Information Sources Records reviewed: Previous records reviewed History/Review of Systems obtained from: Patient, Family ( Werner at visit) Exam limitations: No limitations - History of Present Illness Update Brief HPI Update: This is a oliver 67-year-old woman has complex history regarding her rare cancer , she has metastatic carcinoid to liver status post liver metastasectomy with recently noted recurrent liver lesions, and bony lesions with progressive disease including new findings in her shoulder with increased pain. She is awaiting to start her oral chemotherapeutic drug of everolimus, she is here to get her when that she denied and Xgeva today. Her current fentanyl dosing is at 62.5 mcg, as well as has increased her gabapentin to 300 mg 3 times daily. She did add topical CBD to her left shoulder, is found this to provide dramatic difference for her. She is feeling currently her pain is at a good level with good control. Social History - Living Situation Living arrangement: At home Living Situation: With spouse/s.o. (recently traveled, supportive family, difficult with progression of dx) Medications/Allergies - Medications Home Medications: Ambulatory Orders Medication Instructions Recorded Confirmed Hydrochlorothiazide 12.5 mg PO DAILY 08/31/15 04/09/18 Oxymetazoline HCl [Afrin] 2 spray NS QPM 08/31/15 04/09/18 Prochlorperazine [Compazine] 5 mg PO Q6HR PRN 08/31/15 04/09/18 Losartan [Cozaar] 50 mg PO DAILY 10/26/15 04/09/18 [id number] CD [Cardizem Cd] 180 mg PO DAILY 10/26/15 04/09/18 Levothyroxine Sodium 137 mcg PO DAILY 03/08/16 04/09/18 Omeprazole [PriLOSEC] 20 mg PO DAILY 03/08/16 04/09/18 Rizatriptan Benzoate [Rizatriptan] 5 mg PO ONCE 03/08/16 04/09/18 HYDROmorphone [Dilaudid] 2 - 4 mg PO Q4HR PRN 01/09/17 04/09/18 Venlafaxine [Effexor] 3 tab PO DAILY 01/09/17 04/09/18 Zolpidem [Ambien] 10 mg PO DAILY PM PRN 01/09/17 04/09/18 Lanreotide Acetate [Somatuline 120 mg SQ ONCE 04/10/17 04/09/18 Depot] metFORMIN [Glucophage] 500 mg PO QDBREAKFAST 07/31/17 04/09/18 Timolol 0.5% Ophth Drops [Timoptic 1 drops EACHEYE BID 08/28/17 04/09/18 0.5% Ophth Drops] fentaNYL [Fentanyl 25mcg patch] 62.5 mcg TOP Q72H 12/18/17 04/09/18 Gabapentin 300 mg PO TID 01/24/18 04/12/18 Loperamide [Imodium] 2 mg PO DAILY PRN 01/29/18 04/09/18 Metformin HCl [Metformin HCl ER] 500 mg PO QPM 03/06/18 04/09/18 - Allergies Allergies/Adverse Reactions: Allergies Allergy/AdvReac Type Severity Reaction Status Date / Time No Known Drug Allergies Allergy Verified 11/26/15 13:18 Review of Systems - Constitutional Constitutional: reports: Fatigue, Weight gain (in [place] with comfort/family foods) - Neurological Neurological: reports: General weakness - Psychiatric Psychiatric: reports: Depression - Endocrine Endocrine: reports: Diabetes type 2 (has not been checking blood sugars; currently not planning to follow up; notes when hypoglycemic and able to eat to address;) Physical Exam - Physical Exam General Appearance: positive: No acute distress, Alert Eyes Bilateral: positive: Normal inspection Respiratory: positive: No respiratory distress Skin: positive: Other (tanned from recent vacation) Extremities: positive: No pedal edema, Other (increased ROM with improved pain in left arm) Neurologic/Psychiatric: positive: Oriented x3, Depressed mood/affect, Flat affect Palliative Care - POLST Patient has POLST: No Pain: Pain improved (Discussed whether to proceed as had not picked up 75 mcg patches, they do have at least 2 rounds of patch changes with the 25, and 37.5 s , will contact me if want 62.5's. She is feeling a little bit sedated on today , will leave as is has encouraged as far as his CBD response, did discuss at length difficulty on dosing and becoming just "an experiment of one" around this.) Tiredness/Fatigue: Moderate (4-6) Drowsiness/Sedation: Mild (1-3) Nausea: None - Palliative Care Discussion: Initiated discussion regarding feelings around progressive disease, there is some resistance for her- regarding the cost and going on to oral chemotherapy, patient remains very guarded about her feelings. Will explore as allowed. Did try to provide information as far as weighing benefits and burdens with each round of chemotherapy, and making a decision as one goes along, does express wishes for her to proceed. We did discuss this is often a team approach , but ultimately the decision is hers. Gently tried to support normalizing her feelings of grief and loss with her current situation and the unknowns that are facing her. Did offer ongoing support or exploration at any point that would be of help to her. Impression and Recommendations - Palliative Care Impression: This is a oliver 67-year-old woman with metastatic carcinoid the liver and lungs and bones, now with known progressive disease. Pain is better controlled today, currently satisfied with regimen, has added CBD with good success topically. Palliative care to provide ongoing support for pain and symptom management, again with focus on pain today. Recommendations/Counseling Done: 1. Pain of neoplastic origin. He should not has increased her gabapentin to 300 mg 3 times daily, with some slight sedation, she is also at fentanyl 62.5 mcg. We will continue to explore over the next week as far as if needs new prescription, and if further titration needed. Counseling regarding use of CBD , titration of medications, and side effects. 2. Metastatic carcinoid to liver, bones, pending new chemotherapeutic regimen with oral chemotherapy. Requested patient follow up with either myself or the clinic if it is not had education regarding new medication. She does have prochlorperazine at home, but may need more aggressive regimen, will need to follow-up on most common side effects, will mail her teaching sheets. 3. Depression. Will continue to normalize grief and loss issues, explore as patient allows, would like to introduce conversation regarding advanced care planning, will allow patient to take the lead to provide information as indicated Time Spent: 20 minutes with greater than 50% of this time done in counseling regarding pain management and anticipatory guidance
== END 2018-04-12 14:36 | disposition home or self-care (01) ==
LOC: PC 14:35
PROVIDERS: ATTEND Nurse Practitioner Adult Health
DX: Z51.5 Encounter for palliative care (principal); G89.3 Neoplasm related pain (acute) (chronic); C7A.00 Malignant carcinoid tumor of unspecified site; C7B.03 Secondary carcinoid tumors of bone; C7B.02 Secondary carcinoid tumors of liver; C7B.09 Secondary carcinoid tumors of other sites; F32.9 Major depressive disorder, single episode, unspecified; E11.9 Type 2 diabetes mellitus without complications; Z79.899 Other long term (current) drug therapy; Z79.891 Long term (current) use of opiate analgesic; Z79.84 Long term (current) use of oral hypoglycemic drugs
CPT/HCPCS: 99213

== ENCOUNTER 2018-05-07 13:32 | Outpatient (CLI) | payer MEDICARE, OTHER ==
--- NOTE | 2018-05-07 19:54 | CONSULTATION NOTE ---
Palliative Care Follow Up - Referral Referring Provider: Dr. 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 She has been on lanreotide since 09/2016. She is to start Afinitor, that there has been a delay in receiving her prescription. Palliative care is following her pain and symptom management, and psychosocial support as allowed. Review of her current regimen in the context of finding balance between sedation and pain relief, she is currently satisfied with her fentanyl at 62.5 mcg every 3 days, gabapentin 100 mg a.m., 300 mg p.m., with the addition of CBD topical to her right shoulder and arm pain. Her pain is located bilaterally in her hips, new right upper quadrant pain, and right shoulder and arm painHer most significant symptom at this point in time is impacting quality of life, is actually fatigue, this is demonstrated in activity intolerance, needing to rest more and pace activities Social History - Living Situation Living arrangement: At home Living Situation: With spouse/s.o. (Getting ready for vacation with family/ grandkids) Medications/Allergies - Medications Home Medications: Ambulatory Orders Medication Instructions Recorded Confirmed Hydrochlorothiazide 12.5 mg PO DAILY 08/31/15 05/07/18 Oxymetazoline HCl [Afrin] 2 spray NS QPM 08/31/15 05/07/18 Prochlorperazine [Compazine] 5 mg PO Q6HR PRN 08/31/15 05/07/18 Losartan [Cozaar] 50 mg PO DAILY 10/26/15 05/07/18 [id number] CD [Cardizem Cd] 180 mg PO DAILY 10/26/15 05/07/18 Levothyroxine Sodium 137 mcg PO DAILY 03/08/16 05/07/18 Omeprazole [PriLOSEC] 20 mg PO DAILY 03/08/16 05/07/18 Rizatriptan Benzoate [Rizatriptan] 5 mg PO ONCE 03/08/16 05/07/18 HYDROmorphone [Dilaudid] 2 - 4 mg PO Q4HR PRN 01/09/17 05/07/18 Venlafaxine [Effexor] 3 tab PO DAILY 01/09/17 05/07/18 Zolpidem [Ambien] 10 mg PO DAILY PM PRN 01/09/17 05/07/18 Lanreotide Acetate [Somatuline 120 mg SQ .MONTHLY 04/10/17 05/07/18 Depot] metFORMIN [Glucophage] 500 mg PO QDBREAKFAST 07/31/17 05/07/18 Timolol 0.5% Ophth Drops [Timoptic 1 drops EACHEYE BID 08/28/17 05/07/18 0.5% Ophth Drops] fentaNYL [Fentanyl 25mcg patch] 62.5 mcg TOP Q72H 12/18/17 05/07/18 Gabapentin 300 mg PO QPM 01/24/18 05/07/18 Loperamide [Imodium] 2 mg PO DAILY PRN 01/29/18 05/07/18 Metformin HCl [Metformin HCl ER] 500 mg PO QPM 03/06/18 05/07/18 Gabapentin 100 mg PO QDBREAKFAST 05/07/18 05/07/18 LORazepam [Ativan] 0.5 mg PO Q6HR PRN 05/07/18 05/07/18 Ondansetron [Zuplenz] 8 mg PO Q8HR PRN 05/07/18 05/07/18 - Allergies Allergies/Adverse Reactions: Allergies Allergy/AdvReac Type Severity Reaction Status Date / Time No Known Drug Allergies Allergy Verified 11/26/15 13:18 Review of Systems - Constitutional Constitutional: reports: Fatigue (more consistant), Weakness, Weight stable - Eyes Eyes: reports: Vision loss - Cardiovascular Cardiovascular: reports: Lightheadedness, Decr. exercise tolerance - Respiratory Respiratory: denies: SOB at rest - Gastrointestinal Gastrointestinal: reports: Nausea (intermittent about 2x a week;), Bloating, Early satiety. denies: Diarrhea (improved) - Musculoskeletal Musculoskeletal: reports: Stiffness, Muscle weakness - Integumentary Integumentary: reports: Dryness - Neurological Neurological: reports: General weakness, Other (Patient reports significant fall in [place], including left facial trauma, with residual left facial droop. This does appear to be improving, minimal residual noted on exam today) - Psychiatric Psychiatric: reports: Depression (feels controlled at this time) - Endocrine Endocrine: reports: Diabetes type 2 (does not check BS), Hypothyroidism - Hematologic/Lymphatic Hematologic/Lymphatic: denies: Anemia, Recurrent infections - All Other Systems All Other Systems: reports: Reviewed and negative Physical Exam - Vital Signs Temperature: 37.1 C Pulse Rate: 109 Respiratory Rate: 18 Blood Pressure: 121/80 - Physical Exam General Appearance: positive: No acute distress, Alert Eyes Bilateral: positive: Normal inspection ENT: positive: No signs of dehydration Neck: positive: Trachea midline Cardiovascular: positive: Regular rate & rhythm, Tachycardia Respiratory: positive: Diminished in bases. negative: Wheezes, Rales, Rhonchi Abdomen: positive: Soft, Nml bowel sounds, Tenderness (right upper point tenderness to deep palpation), Distended Skin: positive: Pallor, Dryness Extremities: positive: No pedal edema Neurologic/Psychiatric: positive: Oriented x3, Mood/affect nml, Weakness Palliative Care - POLST Patient has POLST: No Pain: Pain improved, Location (bilateral hip pain; right upper quadrant pain about 2 weeks-constant; right shoulder pain radiating to elbow; currently on Gabapentin 100 mg AM, 300 mg PM; feels right balance of sedation/pain relief; added CBD topical to right arm 2/ a day with relief; baseline fentanyl 62.5 mcg ; feels good balance currently with improved relief) Tiredness/Fatigue: Severe (7-10) (activity intolerance and overall fatigue vs sedation) Drowsiness/Sedation: Mild (1-3) Nausea: None Depression: Mild (1-3) Anxiety: None Dyspnea: None Anorexia: Mild (1-3) (dislikes meat; probably less than adequate fluid intake) Constipation: No Results - Lab Results Lab results reviewed: Yes Lab and Imaging Results: GFR 56 Impression and Recommendations - Palliative Care Impression: This is a oliver 67-year-old woman with progressive metastatic carcinoid to the liver, and bone. Pain currently controlled on her current regimen. Palliative care to continue provide support for pain and symptom management, and building rapport. Recommendations/Counseling Done: 1. Pain of neoplastic origin. Prescription provided for fentanyl 62.5 mcg patches, patient getting ready to travel, will need prescription early, may need some facilitation with pharmacy/insurance. She has decreased her gabapentin to a level acceptable of sedation, Counseled given patient's poor opioid tolerance, to use the gabapentin 100 mg for breakthrough pain or titrate up if increasing activity or pain. 2. Metastatic carcinoid to liver and bones, still pending new chemotherapeutic regimen with oral chemotherapy. Prescription provided for Lorazepam 0.5 mg tabs 1/2-1 tab every 4 hours, as needed to have another medication for nausea. Reports has used Compazine 5 mg about 2 times a week for intermittent nausea related to her disease/side effects of medication. She does have ondansetron available as well, she will call for any assistance needed for management of side effects of new therapy. 3. Depression. Patient feels currently antidepressant at a good level, does not feel overwhelmed or tearful. Is looking forward to several trips they have planned, encouraged to continue to set goals and focus on quality of life. She is looking forward to time with her grand kids on the boat next week Time Spent: 30 minutes was given 50% of this done in counseling regarding pain medication regimen, review of symptoms and symptom burden, and coordination of care with oncology.
== END 2018-05-07 13:33 | disposition home or self-care (01) ==
LOC: PC 13:32
PROVIDERS: ATTEND Nurse Practitioner Adult Health
DX: Z51.5 Encounter for palliative care (principal); G89.3 Neoplasm related pain (acute) (chronic); C7A.00 Malignant carcinoid tumor of unspecified site; C7B.03 Secondary carcinoid tumors of bone; C7B.02 Secondary carcinoid tumors of liver; R11.0 Nausea; T50.905A Adverse effect of unspecified drugs, medicaments and biological substances, initial encounter; F32.9 Major depressive disorder, single episode, unspecified; E11.9 Type 2 diabetes mellitus without complications; Z79.899 Other long term (current) drug therapy; Z79.891 Long term (current) use of opiate analgesic; Z91.81 History of falling; Z79.84 Long term (current) use of oral hypoglycemic drugs
CPT/HCPCS: 99214

== ENCOUNTER 2018-05-09 14:50 | Outpatient (CLI) | payer MEDICARE, OTHER ==
--- NOTE | 2018-05-09 15:38 | XRAY Report ---
Procedure Date: 05/09/2018 Accession Number: [id number] / [id number] Procedure: XR - Shoulder 3 View RT CPT Code: FULL RESULT: EXAM: Humerus RT, Shoulder 3 View RT DATE: 05/09/2018 3:21 PM CLINICAL HISTORY: SEVERE SHOULDER PAIN, BONE METS COMPARISON: None. TECHNIQUE: 3 views of the right shoulder and 2 views of the right humerus. FINDINGS: Right shoulder: Bones: Normal. No fracture or bone lesion. Joints: The glenohumeral and acromioclavicular joints are normal. Soft tissues: The visualized hemithorax is unremarkable. No soft tissue swelling. Right humerus: Bones: Normal. No fracture or bone lesion. Soft tissues: The visualized hemithorax is unremarkable. No soft tissue swelling. IMPRESSION: Normal shoulder radiography. Normal right humerus radiography. [facility]
--- NOTE | 2018-05-09 15:38 | XRAY Report ---
Procedure Date: 05/09/2018 Accession Number: [id number] / [id number] Procedure: XR - Humerus RT CPT Code: FULL RESULT: EXAM: Humerus RT, Shoulder 3 View RT DATE: 05/09/2018 3:21 PM CLINICAL HISTORY: SEVERE SHOULDER PAIN, BONE METS COMPARISON: None. TECHNIQUE: 3 views of the right shoulder and 2 views of the right humerus. FINDINGS: Right shoulder: Bones: Normal. No fracture or bone lesion. Joints: The glenohumeral and acromioclavicular joints are normal. Soft tissues: The visualized hemithorax is unremarkable. No soft tissue swelling. Right humerus: Bones: Normal. No fracture or bone lesion. Soft tissues: The visualized hemithorax is unremarkable. No soft tissue swelling. IMPRESSION: Normal shoulder radiography. Normal right humerus radiography. [facility]
== END 2018-05-09 14:51 | disposition home or self-care (01) ==
LOC: DI 14:50
PROVIDERS: ATTEND Nurse Practitioner Adult Health
DX: M25.511 Pain in right shoulder (principal); C79.51 Secondary malignant neoplasm of bone

== ENCOUNTER 2018-06-04 13:43 | Outpatient (CLI) | payer MEDICARE, OTHER ==
--- NOTE | 2018-06-04 20:17 | CONSULTATION NOTE ---
Palliative Care Follow Up - Referral Referring Provider: Dr. 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 She has been ongoing lanreotide since September 2016, she has just started Afinitor this last month. Her greatest symptom has been fatigue and some mouth discomfort. Her labs are stable to day. Her history is complex as it is considered a fairly rare tumor, and most recently has presented with recurrent liver lesions, progressive bony metastases, and increasing pain. Palliative care is providing support regarding pain and symptom management, her most recent fentanyl dose was 62.5 mcg, she added an extra 25 today as her pain had been increased most specifically bilaterally in her hips and in her thoracic spine. Her shoulders which had exacerbated a point where we did take a look at shoulder x-rays, has come down with the increase in gabapentin, patient does not tolerate oral opioids so is difficult to dose with breakthrough pain medication. Patient also on gabapentin 300 mg 3 times daily, often forgets the middle of the day dosing. Patient did have a oliver vacation , with her grandchildren and children over the last several weeks, though she had fatigue, she did enjoy taking a break and did tolerate fairly well her oral chemotherapy during that time. I am she did have some retching over the weekend , is unable to identify precipitating factor, though does acknowledge closer to the time of her shot it seems to be more likely to be problematic. She has found the Compazine and ondansetron effective, she continues to have poor appetite and likes to take mostly soups. Social History - Living Situation Living arrangement: At home Living Situation: With spouse/s.o. (Patient's spouse recently retired, patient had to retire previously secondary to her diagnosis. I are trying to find a balance as far as activity and patient's fatigue level. Family very supportive , but patient is somewhat of an introvert. She is planning a trip to [place] again in June, is looking forward to this and she will be spending time with a good friend.) Medications/Allergies - Medications Home Medications: Ambulatory Orders Medication Instructions Recorded Confirmed Hydrochlorothiazide 12.5 mg PO DAILY 08/31/15 06/04/18 Oxymetazoline HCl [Afrin] 2 spray NS QPM 08/31/15 06/04/18 Prochlorperazine [Compazine] 5 mg PO Q6HR PRN 08/31/15 06/04/18 Losartan [Cozaar] 50 mg PO DAILY 10/26/15 06/04/18 diltiaZEM CD [Cardizem Cd] 180 mg PO DAILY 10/26/15 06/04/18 Levothyroxine Sodium 137 mcg PO DAILY 03/08/16 06/04/18 Omeprazole [PriLOSEC] 20 mg PO DAILY 03/08/16 06/04/18 Rizatriptan Benzoate [Rizatriptan] 5 mg PO ONCE 03/08/16 06/04/18 Venlafaxine [Effexor] 3 tab PO DAILY 01/09/17 06/04/18 Zolpidem [Ambien] 10 mg PO DAILY PM PRN 01/09/17 06/04/18 Lanreotide Acetate [Somatuline 120 mg SQ .MONTHLY 04/10/17 06/04/18 Depot] metFORMIN [Glucophage] 500 mg PO QDBREAKFAST 07/31/17 06/04/18 Timolol 0.5% Ophth Drops [Timoptic 1 drops EACHEYE BID 08/28/17 06/04/18 0.5% Ophth Drops] fentaNYL [Fentanyl 25mcg patch] 75 mcg TOP Q72H 12/18/17 06/04/18 Gabapentin 300 mg PO TID 01/24/18 06/04/18 Loperamide [Imodium] 2 mg PO DAILY PRN 01/29/18 06/04/18 Metformin HCl [Metformin HCl ER] 500 mg PO QPM 03/06/18 06/04/18 LORazepam [Ativan] 0.5 mg PO Q6HR PRN 05/07/18 06/04/18 Ondansetron [Zuplenz] 8 mg PO Q8HR PRN 05/07/18 06/04/18 Lidocaine HCl [Lidocaine HCl 15 ml MM Q3H PRN #100 ml 05/10/18 06/04/18 Viscous] Everolimus [Afinitor] 10 mg PO DAILY 05/11/18 06/04/18 - Allergies Allergies/Adverse Reactions: Allergies Allergy/AdvReac Type Severity Reaction Status Date / Time No Known Drug Allergies Allergy Verified 11/26/15 13:18 Review of Systems - Constitutional Constitutional: reports: Fatigue (fairly profound; feels exhausted, needing to sleep differentiates from sedation), Weakness, Poor appetite, Weight loss (184) . denies: Fever - Ears, Nose & Throat Ears, Nose & Throat: reports: Nasal congestion, Dry mouth, Other (mouth lesion end of tongue tender) - Cardiovascular Cardiovascular: reports: Exertional dyspnea, Decr. exercise tolerance - Respiratory Respiratory: reports: Cough (cough in am; clears by noon; no wheezing/tightness) , SOB with exertion. denies: SOB at rest - Gastrointestinal Gastrointestinal: reports: Vomiting (retching episodes two days in last week), Bloating, Poor appetite, Early satiety. denies: Constipation, Diarrhea - Musculoskeletal Musculoskeletal: reports: Stiffness, Muscle weakness, Joint pain (bilateral hip pain) - Integumentary Integumentary: reports: Dryness, Other (reports bulge in right calf; has notice for about a month with shaving; no tenderness or pain) - Neurological Neurological: reports: General weakness - Psychiatric Psychiatric: reports: Depression (enjoyed family vacation) - Endocrine Endocrine: reports: Diabetes type 2, Hypothyroidism - All Other Systems All Other Systems: reports: Reviewed and negative Physical Exam - Vital Signs Temperature: 36.4 C Pulse Rate: 96 Respiratory Rate: 20 Blood Pressure: 122/78 - Physical Exam General Appearance: positive: No acute distress Eyes Bilateral: positive: Normal inspection ENT: positive: No signs of dehydration. negative: Oral lesions (no noticable lesion) Neck: positive: No JVD, Trachea midline Cardiovascular: positive: Tachycardia Respiratory: positive: Breath sounds nml Abdomen: positive: Non-tender, Soft, Nml bowel sounds Skin: positive: Dryness, Other (swelling noted with weight bearing right calf; soft nonfixed; nontender; size of a [place] about 2-3 cm above skin plane) Extremities: positive: No pedal edema Neurologic/Psychiatric: positive: Oriented x3, Mood/affect nml, Weakness Palliative Care - POLST Patient has POLST: No Pain: Pain worsening (bilteral hip pain/thoracic spine) Tiredness/Fatigue: Severe (7-10) Drowsiness/Sedation: Moderate (4-6) Nausea: None Depression: Moderate (4-6) Anxiety: Moderate (4-6) Dyspnea: None Anorexia: Moderate (4-6) Sleep: Sleeps well Constipation: No Feelings of wellbeing/Perceived Quality of Life: Fair Performance Status: Patient reports less energy, less activity tolerance. Patient is sleeping more. She is able to ambulate, but her gait is measured. - Palliative Care Discussion: Patient has been pleased regarding first round of Afinitor, and is somewhat frustrated regarding still concerned about getting prescription. Patient had enjoyed family vacation, and has goal to spend time in [place] again but this time with a girlfriend.Continues to struggle with fairly high symptom burden, palliative care to continue to provide support as patient allows. Results - Lab Results Lab results reviewed: Yes Lab and Imaging Results: reviewed with patient and Impression and Recommendations - Palliative Care Impression: This is a oliver 68-year-old woman with metastatic carcinoid to the liver and bone, presenting with progressive disease. Patient finished first month of Afinitor, most pronounced side effect has been fatigue. Patient does have progressive pain, will continue to titrate medication to find balance between sedation and pain relief. Palliative care to continue to provide support for pain and symptom management. Recommendations/Counseling Done: 1. Pain and neoplastic origin secondary to bony metastases. Patient did get relief with increased gabapentin for her bilateral shoulder pain, though does have difficulty remembering to take it in the middle of the day. She is currently on gabapentin 300 mg 3 times daily. She does report increased pain bilaterally in her hips and thoracic spine, did add a 25 mcg today to her 62. We did discuss in the context of new prescriptions, will go ahead and write for 75 mcg. Patient will evaluate response in the balance of sedation and pain relief. Patient does not tolerate oral opioids, does have some 25 mcg patches if needs to add to the regimen. 2. Fatigue, multifactorial in origin. Most likely is attributed to her initiation of her Afinitor. Patient is pacing activity, will continue to evaluate, may offer Ritalin if continued to be problematic. 3. Nausea/vomiting. This has not been extensive, has been responsive to Compazine and ondansetron. Patient notes pattern closer to the time of shot. Encouraged to contact me if has further or persistent nausea. 4. Depression. Patient did enjoy a family vacation, she is making good eye contact and seems very excited about her pending trip. Encouraged patient to continue to pursue things that bring her tabby. Patient is very introverted, have offered up openings if patient would like to further explore emotional responses. Will continue to take patients lead and develop rapport. 5. Soft lower right tissue mass. This is of unknown etiology, but certainly of concern given patient's underlying diagnosis. Does not present as signs or symptoms of clot, nor fixed or tender. Encourage patient to continue to monitor , if worsens to contact myself or health care team for further workup. Time Spent: 30 minutes was given 50% of this done around counseling for opioid and pain management, providing review of symptom management.
== END 2018-06-04 13:44 | disposition home or self-care (01) ==
LOC: PC 13:43
PROVIDERS: ATTEND Nurse Practitioner Adult Health
DX: Z51.5 Encounter for palliative care (principal); G89.3 Neoplasm related pain (acute) (chronic); C22.8 Malignant neoplasm of liver, primary, unspecified as to type; C79.51 Secondary malignant neoplasm of bone; R53.83 Other fatigue; R11.2 Nausea with vomiting, unspecified; F32.9 Major depressive disorder, single episode, unspecified; Z79.899 Other long term (current) drug therapy; M62.81 Muscle weakness (generalized); E11.9 Type 2 diabetes mellitus without complications; R22.41 Localized swelling, mass and lump, right lower limb
CPT/HCPCS: 99214

== ENCOUNTER 2018-07-02 14:44 | Outpatient (CLI) | payer MEDICARE, OTHER ==
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
== END 2018-07-02 14:45 | disposition home or self-care (01) ==
LOC: PC 14:44
PROVIDERS: ATTEND Nurse Practitioner Adult Health
DX: Z51.5 Encounter for palliative care (principal); G89.3 Neoplasm related pain (acute) (chronic); C78.7 Secondary malignant neoplasm of liver and intrahepatic bile duct; C79.51 Secondary malignant neoplasm of bone; R53.83 Other fatigue; L73.9 Follicular disorder, unspecified; Z79.899 Other long term (current) drug therapy; R19.7 Diarrhea, unspecified; E11.9 Type 2 diabetes mellitus without complications; Z79.84 Long term (current) use of oral hypoglycemic drugs
CPT/HCPCS: 99214

== ENCOUNTER 2018-07-24 14:59 | Inpatient (IN) | payer MEDICARE, OTHER ==
[~2018-07-24 14:59] MED LIST: fentaNYL 50 MCG PATCH TOP SCH
[2018-07-24] MEDS ORDERED: SODIUM CHLORIDE 0.9% 1,000 ML IV ONE ×2 (15:17→16:13)
[2018-07-24 15:40] LABS: BASOPHILS # (AUTO) 0.1 10^3/uL (0.0-0.1); BASOPHILS % (AUTO) 1.6 %; EOSINOPHILS # (AUTO) 0.1 10^3/uL (0.0-0.7); EOSINOPHILS % (AUTO) 1.1 %; HGB - HEMOGLOBIN 11.7 g/dL (12.0-16.0); LYMPHOCYTES # (AUTO) 0.4 10^3/uL (1.5-3.5); LYMPHOCYTES % (AUTO) 6.1 %; MEAN CORPUSCULAR HEMOGLOBIN 31.9 pg (27.0-31.0); MEAN CORPUSCULAR HGB CONC 35.3 g/dL (32.0-36.0); MEAN CORPUSCULAR VOLUME 90.3 fL (81.0-99.0); MEAN PLATELET VOLUME 7.4 fL (7.9-10.8); MONOCYTES # (AUTO) 0.9 10^3/uL (0.0-1.0); MONOCYTES % (AUTO) 12.4 %; NEUTROPHILS # (AUTO) 5.6 10^3/uL (1.5-6.6); NEUTROPHILS % (AUTO) 78.8 %; PLT - PLATELET COUNT 217 10^3/uL (130-450); RED BLOOD COUNT 3.67 10^6/uL (4.20-5.40); RED CELL DISTRIBUTION WIDTH 14.4 % (12.0-15.0); WHITE BLOOD COUNT 7.1 x10^3/uL (4.8-10.8)
[2018-07-24 15:55] LABS: ALBUMIN 3.7 g/dL (3.2-5.5); BILIRUBIN,TOTAL 1.2 mg/dL (0.2-1.0); TOTAL PROTEIN 7.4 g/dL (6.7-8.2)
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
[2018-07-24] MEDS ORDERED: ONDANSETRON 4 MG/2 ML VIAL IVP STA (16:13)
[2018-07-24 16:52] LABS: CLARITY,URINE CLEAR (CLEAR); GLUCOSE, URINE (UA) 100 mg/dL (NEGATIVE); KETONES,URINE (UA) 40 mg/dL (NEGATIVE); LEUKOCYTE ESTERASE, URINE NEGATIVE (NEGATIVE); NITRITE,URINE NEGATIVE (NEGATIVE); OCCULT BLOOD,URINE NEGATIVE (NEGATIVE); PROTEIN,URINE TRACE mg/dL (NEGATIVE); UROBILINOGEN,URINE 1 (NORMAL) E.U./dL (NORMAL)
[2018-07-24 16:55] LABS: BILIRUBIN,URINE NEGATIVE (NEGATIVE); ICTOTEST,URINE NEGATIVE
[2018-07-24 17:07] LABS: INR 1.3 (0.8-1.2); PT - PROTHROMBIN TIME 14.2 secs (9.9-12.6)
--- NOTE | 2018-07-24 17:57 | CT Report ---
Reason: AMS metastatic carcinoid Procedure Date: 07/24/2018 Accession Number: [id number] / [id number] Procedure: CT - Head W/O CPT Code: FULL RESULT: EXAM: CT HEAD EXAM DATE: 07/24/2018 05:35 PM. CLINICAL HISTORY: AMS metastatic carcinoid. COMPARISON: None. TECHNIQUE: Multiaxial CT images were obtained from the foramen magnum to the vertex. Reformats: Sagittal and coronal. IV contrast: None. In accordance with CT protocol optimization, one or more of the following dose reduction techniques were utilized for this exam: automated exposure control, adjustment of mA and/or KV based on patient size, or use of iterative reconstructive technique. FINDINGS: Parenchyma: No intraparenchymal hemorrhage. No evidence of mass, midline shift, or CT findings of infarction. Silverman-white differentiation is distinct. Extraaxial Spaces: Enlarged cortical CSF spaces compatible with age-related atrophy. No subdural or epidural collections identified. Ventricles: Normal in size and position. Sinuses and Orbits: Imaged paranasal sinuses, orbits, and mastoids show no significant abnormality. Bones: No evidence of fracture or calvarial defect. Other: None. IMPRESSION: No acute intracranial abnormality. RADIA
[2018-07-24] MEDS ORDERED: fentaNYL 50 MCG PATCH TOP SCH (18:00)
[2018-07-24] MEDS ORDERED: fentaNYL 25 MCG PATCH TOP SCH (18:00)
--- NOTE | 2018-07-24 18:26 | CT Report ---
Reason: cancer, GIB, AMS, surgeon suggest CT AP Procedure Date: 07/24/2018 Accession Number: [id number] / [id number] Procedure: CT - Abdomen/Pelvis W/O CPT Code: FULL RESULT: EXAM: CT ABDOMEN AND PELVIS EXAM DATE: 07/24/2018 05:38 PM. CLINICAL HISTORY: Metastatic carcinoid tumor. Altered mental status. GI bleed. COMPARISONS: MR pelvis 03/07/2018. Abdomen/pelvis with 09/01/2015 9:36 am. TECHNIQUE: Routine helical CT imaging was performed through the abdomen and pelvis. IV contrast: None. Enteric contrast: No. Reconstructions: Coronal and sagittal. In accordance with CT protocol optimization, one or more of the following dose reduction techniques were utilized for this exam: automated exposure control, adjustment of mA and/or KV based on patient size, or use of iterative reconstructive technique. FINDINGS: Lung Bases: Consolidation posterior basal segments of both lower lobes, left greater than right. Liver: Fatty infiltration. Mature postoperative changes right lobe. Gallbladder/Bile Ducts: Cholecystectomy. No biliary duct dilatation. Spleen: Normal. Pancreas: Normal. Adrenal Glands: Normal. Kidneys: Normal. No masses or hydronephrosis. Peritoneal Cavity/Bowel: Diverticula of the colon. No free fluid, free air or adenopathy. No masses or acute inflammatory process. The appendix is well visualized and normal. Pelvic Organs: Normal. The bladder and visualized pelvic organs are within normal limits. Vasculature: No aneurysms or other significant abnormality. Bones: Numerous sclerotic bone lesions. Other: Multiple new 1.5 cm and smaller oval subcutaneous nodules in a symmetrical fashion both buttocks, consistent with injection granulomata. IMPRESSION: 1. Posterior bibasilar infiltrates. 2. Extensive bony metastatic disease. 3. Colonic diverticulosis. RADIA
[2018-07-24] MEDS ORDERED: AZITHROMYCIN INJ 500 MG in SODIUM CHLORIDE 0.9% 250 ML IV STA (18:51)
[2018-07-24] MEDS ORDERED: cefTRIAXone 1 GM in SODIUM CHLORIDE 0.9% MINIBAG 100 ML IV STA (18:51)
[2018-07-24] MEDS ORDERED: PROCHLORPERAZINE 10 MG/2 ML VIAL IVP STA ×2 (18:58→20:21)
[2018-07-24] MEDS ORDERED: diphenhydrAMINE INJ 50 MG/ML VIAL IVP STA (18:58)
[2018-07-24] MEDS ORDERED: ACETAMINOPHEN 1,000 MG/100 ML 100 ML IV STA (18:58)
--- NOTE | 2018-07-24 19:13 | XRAY Report ---
Reason: cough ams possible infiltrate on CTAP Procedure Date: 07/24/2018 Accession Number: [id number] / [id number] Procedure: XR - Chest 2 View X-Ray CPT Code: 90629 FULL RESULT: EXAM: CHEST RADIOGRAPHY EXAM DATE: 07/24/2018 06:45 PM. CLINICAL HISTORY: Altered mental status. Cough. Metastatic carcinoid. COMPARISON: XR CHEST PA AND LAT 06/09/2011 12:59 PM ABDOMEN/PELVIS W/O 07/24/2018 5:38 PM. TECHNIQUE: 2 views. FINDINGS: Lungs/Pleura: Bibasilar infiltrates, left greater than right corresponding to the findings on the earlier CT abdomen and pelvis. Normal lung volumes. No effusion, vascular congestion nor pneumothorax. Mediastinum: Heart and mediastinal contours are unremarkable. Other: Right upper quadrant abdominal clips. The extensive bony metastatic disease evident on the CT scan not at all conspicuous on the plain films. IMPRESSION: Posterior bibasilar infiltrates. RADIA
[2018-07-24] MEDS ORDERED: LIDOCAINE VISCOUS 2% 15 ML UDC MM STA (20:05)
[2018-07-24] MEDS ORDERED: PIPERACILLIN/TAZOBACTAM 3.375 GM in SODIUM CHLORIDE 0.9% MINIBAG 100 ML IV STA (20:10)
[2018-07-24] MEDS ORDERED: SODIUM CHLORIDE FLUSH 0.9% 10 ML SYRINGE IVP PRN (20:26)
[2018-07-24] MEDS ORDERED: ONDANSETRON ODT 4 MG TABLET TL PRN (20:42)
[2018-07-24] MEDS ORDERED: ACETAMINOPHEN 325 MG TABLET PO PRN (20:42)
[2018-07-24] MEDS ORDERED: LOPERAMIDE 2 MG CAPSULE PO PRN (20:50)
[2018-07-24] MEDS ORDERED: LIDOCAINE VISCOUS 2% 100 ML BOTTLE MM PRN (20:50)
[2018-07-24] MEDS ORDERED: levoFLOXacin 750 MG/150 ML 750 MG/150 ML BAG IV SCH (21:00)
[2018-07-24] MEDS: PANTOPRAZOLE 40 MG VIAL IVP SCH (21:48)
[2018-07-24] MEDS: PROCHLORPERAZINE 10 MG/2 ML VIAL IVP PRN (21:48)
[2018-07-24] MEDS: TIMOLOL 0.5% OPHTH DROPS EACHEYE SCH (21:48)
[2018-07-24] MEDS: SODIUM CHLORIDE 0.9% 1,000 ML IV SCH (21:49)
--- NOTE | 2018-07-24 22:28 | HISTORY & PHYSICAL EXAMINATION ---
Chief Complaint - Chief Complaint Chief Complaint: altered mental status w black stools History of Present Illness - Admitted From Admitted From:: ER/Home - History Obtained From Records Reviewed: [facility] History obtained from: and Dr. 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 S/p partial hepatectomy 06/12, removing 60% of her liver, with some improvement in her symptoms for about 6-8 months. Unfortunately this was found to be neuroendocrine in nature, metastatic with unknown primary. She has had work ups regarding trying to find the primary, including colonoscopy, and small bowel evaluation via capsules. She also had diagnosed in 07/2015 at thyroid mass, and received a total thyroidectomy, with a diagnosis of Heurthel Cell tumor. Disease progression May 2016 with lesions to the spine, with a biopsy confirmed diagnosis to L2 in 08/2016. She also had knee surgery during this time, and recovery has been complicated because of her intolerance to opioids, she does have severe nausea and vomiting. When she was found to have progressive bone mets she was started on monthly lanreotide and Xgeva. s/p palliative radiation 05/2017 to her right hip and spine, initially with some response but but mets then increased in severity. Imaging done on 11/07/2017 with pelvic MRI, shows increased metastatic bone lesions at the lumbar lower spine, sacrum, pelvis, and visualized proximal femurs which are new since previous study compared on 02/2016. Her thoracic MRI of the spine showed diffuse osseous metastatic disease, mild degenerative central canal stenosis and foraminal stenosis, but no evidence of cord or into canal soft tissue metastatic disease. Size of the lesions at the T4 is 1.2 x 1 cm, and T10 is1.4 x 1.1 cm. Her bone scan does show tracer uptake not only in the thoracic and lumbar spine, and pelvis, but bilaterally in the ribs, sternum, as well as suspicious appearance for denny metastatic disease in her arthroplasties. When she followed up with radiation oncology again, she was told that she is no longer a further candidate, or would benefit because of her disease burden and numerous lesions. She has been continued on lanreotide since 09/2016 and Xgeva changed to Afinitor 04/2018 because the disease was progressing. Pain had been an on going problem especially since she cannot take oral opioids for breakthrough pain due to na usea. She was started on fentanyl patch with methadone 12/2017 and is currently on Fentanyl 75 mcg. Gabapentin was started as well and increased over time and she is on 300 mg po tid. With her last visit with palliative care on 07/02/18: 1. Pain of neoplastic origin secondary to bony metastases. Patient currently on 75 mcg of fentanyl, does appear to be tolerating this well. Patient does not tolerate oral opioids, she does have some 25 mcg patches if we need to add to the regimen, she will take these on her trip. She is still currently on gabapentin 300 mg 3 times a day, this does appear to help with the shoulder pain. She is continuing to use the topical CBD which helps with sleep and also her bilateral shoulder discomfort. 2. Fatigue, multifactorial in origin. This most likely is also as a result of her Afinitor, increase in pain meds, and overall tumor burden. Patient is not distressed by this, his pacing activity, and looking forward to her trip. 3. Depression. Patient does not appear with any depressive symptoms today, is looking forward to her trip, is bright and engaged. She went on her trip to [place] and has been gone for 2 weeks. She went to go stay with family and see some friends. Her has been in contact with her and her friends on a daily basis. From the very beginning of the trip they were telling him that she was not doing well. She just was not eating, and getting weaker and weaker. She started having black stools. She got back from [place] and is sleeping more than ever. Even before she went to [place] she was sleeping up to 18 hours a day. Since back from [place] she is just not getting out of bed. She continues not to eat. Filomena summers has had 300 nory in the last 4-5 days. Her approach general surgery to see if she could get a colonoscopy. General surgery feels that doing a procedure at this point in time is fraught with its own difficulties with regards to treatment of whatever they find. She has a poor prognosis. Her disease is continue to progress in spite of palliative chemotherapy and is going downhill. General surgery will dictate their own consult. Her hemoglobin was 12. She has developed a light cough. Nausea and vomiting in the last few days. Generalized abdominal ache. But this is in a patient has had severe right upper quadrant pain because of her liver mass. Today, she was so sedated that she was becoming unresponsive and her brought her to the emergency room.In the emergency room she is afebrile, slightly tachycardic at 101 normotensive. She is very sedated. She had developed such severe pain all over her body today with her last fentanyl patch being 5 days ago that her changed her to a new fentanyl patch today. And working her up in the em ergency room CT of the head was negative, CT of the abdomen had her with consolidation of the posterior basal segments of both lower lobes, left greater than right. Fatty infiltration of the liver with mature postoperative changes in the right lobe. She has new 1.5 cm and smaller oval subcutaneous nodules in a symmetrical fashion over both buttocks consistent with injection granulomata. Extensive bony metastatic disease. Colonic diverticulosis. But no acute abdominal disease. Bili is slightly elevated at 1.2. She was 0.9 July 22. AST and ALT are mildly chronically elevated. In a diabetic a random glucose is 196. And her hemoglobin is stable at 11.7 with a white cell count that is normal at 7.1. In discussing her end-of-life wishes, she has not thought about it. Her describes them both as very private people. They have not talked about it even with each other. This is a second marriage. They have been for 30 years. He tells me that her own mother does not know that she is sick. And that while the 2 children that she has no about their mom's illness, they have never had engaged conversations with her about treatment, or her wishes. 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 Her made reference to the fact that her mom was still alive and did not know anything about her daughter's diagnosis. Living arrangement: At home Living Situation: With spouse/s.o. Social History Notes: She was born in [facility]. and had 2 children with her first . From [facility] she her second and they have been for 30 years. They went to [place] from [place] and then from [place] to [facility] and have been on [facility] for 15 years. 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 She never smoked. She rarely drank alcohol. Did not have a problem with alcohol abuse or recreational substance abuse. - Substance History Use: Uses substance without health or social issues: Alcohol (reports moderate use) Abuse: Recurrent use of substance despite neg consequences: NONE Dependence: Experiences withdrawal or developed tolerances: NONE - POLST Patient has POLST: No POLST Status: DNR Meds/Allgy - Home Medications Home Medications: Ambulatory Orders Medication Instructions Recorded Confirmed Hydrochlorothiazide 12.5 mg PO DAILY 08/31/15 07/02/18 Oxymetazoline HCl [Afrin] 2 spray NS QPM 08/31/15 07/02/18 Prochlorperazine [Compazine] 5 mg PO Q6HR PRN 08/31/15 07/02/18 Losartan [Cozaar] 50 mg PO DAILY 10/26/15 07/02/18 diltiaZEM CD [Cardizem Cd] 180 mg PO DAILY 10/26/15 07/02/18 Levothyroxine Sodium 137 mcg PO DAILY 03/08/16 07/02/18 Omeprazole [PriLOSEC] 20 mg PO DAILY 03/08/16 07/02/18 Rizatriptan Benzoate [Rizatriptan] 5 mg PO ONCE 03/08/16 07/02/18 Venlafaxine [Effexor] 3 tab PO DAILY 01/09/17 07/02/18 Zolpidem [Ambien] 10 mg PO DAILY PM PRN 01/09/17 07/02/18 Lanreotide Acetate [Somatuline 120 mg SQ .MONTHLY 04/10/17 07/02/18 Depot] metFORMIN [Glucophage] 500 mg PO QDBREAKFAST 07/31/17 07/02/18 Timolol 0.5% Ophth Drops [Timoptic 1 drops EACHEYE BID 08/28/17 07/02/18 0.5% Ophth Drops] fentaNYL [Fentanyl 25mcg patch] 75 mcg TOP Q72H 12/18/17 07/02/18 Gabapentin 300 mg PO TID 01/24/18 07/02/18 Loperamide [Imodium] 2 mg PO DAILY PRN 01/29/18 07/02/18 Metformin HCl [Metformin HCl ER] 500 mg PO QPM 03/06/18 07/02/18 LORazepam [Ativan] 0.5 mg PO Q6HR PRN 05/07/18 07/02/18 Ondansetron [Zuplenz] 8 mg PO Q8HR PRN 05/07/18 07/02/18 Lidocaine HCl [Lidocaine HCl 15 ml MM Q3H PRN #100 ml 05/10/18 07/02/18 Viscous] Everolimus [Afinitor] 10 mg PO DAILY 05/11/18 07/02/18 - Allergies Allergies/Adverse Reactions: Allergies Allergy/AdvReac Type Severity Reaction Status Date / Time No Known Drug Allergies Allergy Verified 11/26/15 13:18 Review of Systems - Other Findings Other Findings: Review of systems is not obtainable from the patient because of sedation. She will answer a few questions and then closed her eyes and drift off back to sleep and requires numerous attempts to try and wake her up. Her describes her as not eating very well for over a year and 1/2-2 years. He cannot believe that she has not becomes taken bone. She has chronic nausea, chronic generalized abdominal pain that waxes and wanes depending on her disease status. Chronic bony pain. She started developing a mild cough over the last week but no fever, no chills. He noticed that last night she was getting up almost every hour with urinary urgency and frequency. No hematuria. She was still able to get out and do things such as going vacation. They traveled on an RV 2 years ago, travel again this last year, and she goes back to [place] to see friends and family. He noticed a discernible downturn in her performance status since late spring early summer 2017. She is more and more tired. Sleeps up to 18 hours a day. Depression was a significant problem at the beginning of her diagnosis especially when pain was uncontrolled. But by this fall she was doing much better emotionally. Exam - Vital Signs Reviewed Vital Signs: Yes Vital Signs: Vital Signs x48h Temp Pulse Pulse Resp BP BP Pulse Ox 07/24/18 21:40 36.9 C 92 20 134/85 H 98 07/24/18 20:59 36.5 C 100 18 137/85 H 97 07/24/18 19:45 37.6 C H 91 15 133/83 H 98 07/24/18 16:43 84 14 157/94 H 98 07/24/18 15:04 36.4 C L 101 H 15 137/90 H 98 - Physical Exam General Appearance: positive: No acute distress, Lethargic, Other (Tanned white female who looks her stated age. I think her prasad makes her look better than she is.) Eyes Bilateral: positive: PERRL, EOMI ENT: positive: Dry mucous membranes, Other (She complains of tooth pain and a tooth in the upper gingiva has a blackened edge as it inserted into her gumline) Neck: positive: No JVD. negative: Stiff neck, Carotid bruit Respiratory: positive: Chest non-tender, Other (Slow, shallow, unlabored respiration with diminished breath sounds at the bases). negative: Wheezes, Ral es, Rhonchi Cardiovascular: positive: Regular rate & rhythm, No murmur. negative: JVD present, Gallop/S4, Friction rub Peripheral Pulses: positive: 1+ Abdomen: positive: Other (Generalized abdominal aching in all quadrants). negative: Guarding, Rebound Skin: positive: Warm, Dry Extremities: positive: Non-tender, No pedal edema. negative: Joint swelling, Jm's sign/cords Neurologic/Psychiatric: positive: CN's nml (2-12), Motor nml (Speech is normal when she is awake enough to speak to me. However there are numerous, numerous pauses when she answers a question. She falls asleep in mid thought and I have to gently wake her up to have her answer again.She tells me that it is hard to answer questions because she feels so confused right now), Disoriented to time, Weakness (Generalized use, nonfocal), Other Conclusion/Plan - Problem List (1) Metabolic encephalopathy Conclusion/Plan: Multifactorial causes in this unfortunate female with stage IV carcinoid tumor. At this time it could be from her medications such as fentanyl, gabapentin. She is dehydrated. She is in pain. She appears to be having a GI bleed with hematochezia an has liver mets. CT scan shows bilateral changes of consolidation at her lung bases. She does not have an elevated white cell count, BUN and creatinine are normal but she appears to be dehydrated on physical exam with her oral mucosa. Lactic acid is normal in spite of being on metformin. So lactic acidosis is not on the differential. CT of head is negative for stroke, mets. Plan: Admit to acute inpatient status IV fluids IV antibiotics (2) Black stools Conclusion/Plan: In a patient whose had EGDs, colonoscopies, video endoscopies, small bowel enterography, all in an effort to identify her primary of her neuroendocrine metastatic disease. 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 At this time general surgery will dictate their own note but they have left me with the impression that she is not a candidate for EGD or therapy at this time. Even if they did the EGD, and found something, they do not think that she would survive surgery or treatment. We will check serial hemoglobins. Patient is a Jehovah witness. She is not a candidate for blood transfusions. (3) Pneumonia Conclusion/Plan: On CT scan. The distribution and area of where she has pneumonia leads me to suspect that she has significant atelectasis which is then led to this pneumonia. She does not have hypoxia, nor does she have a fever or elevated white cell count. Plan: Broad-spectrum antibiotic coverage in a patient who is at risk for gram-negative pneumonia because of her cancer and immunocompromise status Adjust antibiotics on the basis of blood cultures when they come back Acapella or incentive spirometry when she is more awake and able to cooperate Qualifiers: Pneumonia type: due to unspecified organism Laterality: bilateral Lung location: lower lobe of lung Qualified Code(s): J18.1 - Lobar pneumonia, unspecified organism (4) Controlled type 2 diabetes mellitus without complication, without long-term current use of insulin Conclusion/Plan: Check A1c. During the stay we will avoid the use of metformin. You 0.9 normal saline to hydrate. Low-dose sliding scale insulin in a patient who will be on a clear liquid diet. (5) Pain due to dental caries Conclusion/Plan: She is started on empiric antibiotic therapy for her pneumonia. This time. Therapy should cover her for any dental abscess. She will need to see a dentist in the outpatient setting. (6) Pain due to malignant neoplasm metastatic to bone Conclusion/Plan: She has a new fentanyl patch placed today. We will observe her carefully to make sure that her respiratory rate remained stable. We will note that she does not do well with oral medications and will give Zofran and Compazine as needed. I do not think that her sedation is due to excessive pain medicines because she was not using her patch for 5 days. (7) [id number] resuscitation status Conclusion/Plan: Please see advanced care plan under separate dictation. I explained to the patient that sometimes infection can continue to progress and not respond to t herapy. If her pneumonia progresses to the point of respiratory failure, pulmonary arrest, which she want me to intubate her. She does not. Her is uncomfortable with her decision. He feels that she is sedated, confused more than normal, and does not know if she understands what she is saying. But he will not contradict that request. As her power of state attorney/, he concurs with that decision. (8) Metastatic malignant neuroendocrine tumor to liver Conclusion/Plan: And to bone. The was wondering if she would be a candidate for EGD. He feels if they could find the primary tumor (which is not been found as of yet) that may be they could then tailor the chemotherapy and impact her prognosis. I carefully explained that even though I am not an oncologist, cannot comment on treatment depending on a primary being found, I would still anticipate that her prognosis is not good if not out right poor considering she is continued to deteriorate and progressed with disease status over the last 3 years. I would hold off on her everolimus tablets for right now. - Lab Results Fish Bones: 07/24/18 15:25 07/24/18 15:25 Core Measures - Anticipated LOS I expect patient to be DC'd or transferred within 96 hours.: Yes - DVT/VTE - Prophylaxis VTE/DVT Device ordered at admit?: Yes
[2018-07-24] MEDS: levoFLOXacin 750 MG/150 ML 750 MG/150 ML BAG IV SCH (22:47)
--- NOTE | 2018-07-24 23:25 | ADVANCE CARE PLANNING NOTE ---
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 Metastases are to liver, bones and have progressed in spite of therapy since 2014 - Parties in attendance Parties in attendance: , , hospitalist - Decisional capacity Decisional capacity of: Patient is impaired. She has been with altered mental status that is severe over the course of the day, with gradually losing memory and increasing confusion since spring 2017. She is currently on fentanyl patch - Subjective/Patient's story Subjective/Patient's story: The patient herself is difficult to arouse this time. Her history is obtained mainly from her who is a retired business management associate. She was born in [facility], and had her first marriage with 2 children while living there. She then met her second and has been to him for 30 years. From "[place] they went to [place] and from [place] they have been here on [facility] for 15 years. Although they have a strong marriage, her states that "they really do not talk to one another" about difficult topics. He describes themselves as a very private individuals. And while they have Gr[place] followed through with all treatment recommendations for her current illness, they have never really sat and talked about what would end of life issues look like. They have never talked about advanced directives. They have never talked about defining what her quality of life looks like for her and what she would feel was no longer a good quality of life. She was diagnosed in 2014 when she presented with right upper quadrant pain and epigastric pain. She was found to have a large hepatic tumor that was resected. This was found to be neuroendocrine in origin. She was started on treatment but then progressed within a year and had bony metastases. She had palliative radiation therapy to her spine. She has had therapy that has changed twice now. In spite of palliative therapy, her disease status continues to worsen. Her main issue has been depression, grief, and pain. She is met with palliative care frequently since the spring of this year. She was seen July 02 for her last visit with palliative care and was actually doing well with regards to control of pain, control of depressive symptoms. She does not eat well. In spite of this has not lost a lot of weight. notices a cognitive decline with increasing confusion and difficulty making decisions since spring 2017. This does coincide with the use of methadone, fentanyl, and increasing doses of gabapentin. In spite of her disease, and her 's cardiovascular disease, they have managed to travel twice in an in the last 2 years, and she just recently returned from a trip to [place] to see her girl friends and family. While she was in [place], her was getting daily reports that she was not doing well with her confusion, not eating, and developing black stools. She got back from vacation and he has been consulting with general surgery about what to do. Today she developed severe generalized abdominal pain, nausea progressed to emesis, and she became quite sedated. She has not had a change in her fentanyl patch for 5 days any change that today. In the emergency room she has been identified as having bilateral lower lobe consolidation most likely from atelectasis. She does not have a fever, elevated white cell count, and CT of the abdomen and had are unremarkable other than for her diffuse metastatic disease, diverticulosis, and the bilateral consolidations noted on CT. 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 S/p partial hepatectomy 06/12, removing 60% of her liver, with some improvement in her symptoms for about 6-8 months. Unfortunatel y this was found to be neuroendocrine in nature, metastatic with unknown primary. She has had work ups regarding trying to find the primary, including colonoscopy, and small bowel evaluation via capsules. She also had diagnosed in 07/2015 at thyroid mass, and received a total thyroidectomy, with a diagnosis of Heurthel Cell tumor. Disease progression May 2016 with lesions to the spine, with a biopsy confirmed diagnosis to L2 in 08/2016. She also had knee surgery during this time, and recovery has been complicated because of her intolerance to opioids, she does have severe nausea and vomiting. When she was found to have progressive bone mets she was started on monthly lanreotide and Xgeva. s/p palliative radiation 05/2017 to her right hip and spine, initially with some response but but mets then increased in severity. Imaging done on 11/07/2017 with pelvic MRI, shows increased metastatic bone lesions at the lumbar lower spine, sacrum, pelvis, and visualized proximal femurs which are new since previous study compared on 02/2016. Her thoracic MRI of the spine showed diffuse osseous metastatic disease, mild degenerative central canal stenosis and foraminal stenosis, but no evidence of cord or into canal soft tissue metastatic disease. Size of the lesions at the T4 is 1.2 x 1 cm, and T10 is1.4 x 1.1 cm. Her bone scan does show tracer uptake not only in the thoracic and lumbar spine, and pelvis, but bilaterally in the ribs, sternum, as well as suspicious appearance for denny metastatic disease in her arthroplasties. When she followed up with radiation oncology again, she was told that she is no longer a further candidate, or would benefit because of her disease burden and numerous lesions. She has been continued on lanreotide since 09/2016 and Xgeva changed to Afinitor 04/2018 because the disease was progressing. Pain had been an on going problem especially since she cannot take oral opioids for breakthrough pain due to nausea. She was started on fentanyl patch with methadone 12/2017 and is currently on Fentanyl 75 mcg. Gabapentin was started as well and increased over time and she is on 300 mg po tid. With her last visit with palliative care on 07/02/18: 1. Pain of neoplastic origin secondary to bony metastases. Patient currently on 75 mcg of fentanyl, does appear to be tolerating this well. Patient does not tolerate oral opioids, she does have some 25 mcg patches if we need to add to the regimen, she will take these on her trip. She is still currently on gabapentin 300 mg 3 times a day, this does appear to help with the shoulder pain. She is continuing to use the topical CBD which helps with sleep and also her bilateral shoulder discomfort. 2. Fatigue, multifactorial in origin. This most likely is also as a result of her Afinitor, increase in pain meds, and overall tumor burden. Patient is not distressed by this, his pacing activity, and looking forward to her trip. 3. Depression. Patient does not appear with any depressive symptoms today, is looking forward to her trip, is bright and engaged. She went on her trip to [place] and has been gone for 2 weeks. She went to go stay with family and see some friends. Her has been in contact with her and her friends on a daily basis. From the very beginning of the trip they were telling him that she was not doing well. She just was not eating, and getting weaker and weaker. She started having black stools. She got back from [place] and is sleeping more than ever. Even before she went to [place] she was sleeping up to 18 hours a day. Since back from [place] she is just not getting out of bed. She continues not to eat. Filomena summers has had 300 nory in the last 4-5 days. Her approach general surgery to see if she could get a colonoscopy. General surgery feels that doing a procedure at this point in time is fraught with its own difficulties with regards to treatment of whatever they find. She has a poor prognosis. Her disease is continue to progress in spite of palliative chemotherapy and is going downhill. General surgery will dictate their own consult. Her hemoglobin was 12. She has developed a light cough. Nausea and vomiting in the last few days. Generalized abdominal ache. But this is in a patient has had severe right upper quadrant pain because of her liver mass. Today, she was so sedated that she was becoming unresponsive and her brought her to the emergency room.In the emergency room she is afebrile, slightly tachycardic at 101 normotensive. She is very sedated. She had developed such severe pain all over her body today with her last fentanyl patch being 5 days ago that her changed her to a new fentanyl patch today. And working her up in the emergency room CT of the head was negative, CT of the abdomen had her with consolidation of the posterior basal segments of both lower lobes, left greater than right. Fatty infiltration of the liver with mature postoperative changes in the right lobe. She has new 1.5 cm and smaller oval subcutaneous nodules in a symmetrical fashion over both buttocks consistent with injection granulomata. Extensive bony metastatic disease. Colonic diverticulosis. But no acute abdominal disease. Bili is slightly elevated at 1.2. She was 0.9 July 22. AST and ALT are mildly chronically elevated. In a diabetic a random glucose is 196. And her hemoglobin is stable at 11.7 with a white cell count that is normal at 7.1. In discussing her end-of-life wishes, she has not thought about it. Her describes them both as very private people. They have not talked about it even with each other. This is a second marriage. They have been for 30 years. He tells me that her own mother does not know that she is sick. And that while the 2 children that she has no about their mom's illness, they have never had engaged conversations with her about treatment, or her wishes. - Goals of Care Goals of care determinations: At this time the patient is limited in her ability to make decisions. She is confused, sedated, and readily admits that she cannot think straight very well right now. She acknowledges that she has not thought about end-of-life care. She has not thought about how she would like her last few weeks to be. She does not articulate why but her states that most likely she is afraid. He also says that from an innate perspective of their personalities, they are very private people. He adds that her own mother does not know that she is sick. At this time, the conversation is been left open ended. We can revisit advanced care planning when she is more alert, and not as sedated. While he is uncomfortable with her decision where she states that she would like to be DO NOT RESUSCITATE if she has a cardiopulmonary arrest, he will respect that decision. 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 But he would like us to discuss this again when she is more alert. - Plan Plan: Rediscuss advanced care plan when patient is more alert and awake and not as sedated Continue pain control with current regimen of fentanyl patch and gabapentin. I may reduce the dose in an effort to see if this may have caused oversedation even though he describes her not using fentanyl for the last few days. Continue antidepressants in the form of Effexor. She is not awake enough to swallow pills right now. Will resume in the morning. - Code Status Code Status: Do Not Attempt Resuscitation - Time Spent on Advance Care Planning Time spent on advance care plannin minutes
[2018-07-25 00:13] LABS: HGB - HEMOGLOBIN 10.4 g/dL (12.0-16.0); MEAN CORPUSCULAR HEMOGLOBIN 31.6 pg (27.0-31.0); MEAN CORPUSCULAR HGB CONC 35.1 g/dL (32.0-36.0); MEAN PLATELET VOLUME 7.2 fL (7.9-10.8); RED BLOOD COUNT 3.3 10^6/uL (4.20-5.40); RED CELL DISTRIBUTION WIDTH 15.1 % (12.0-15.0); WHITE BLOOD COUNT 5.7 x10^3/uL (4.8-10.8)
[2018-07-25 00:36] LABS: HB2 TOTAL 10.9 g/dL; HEMOGLOBIN A1C 0.72 g/dL; HEMOGLOBIN A1C % 8.2 % (4.6-6.2)
[2018-07-25] MEDS: ONDANSETRON 4 MG/2 ML VIAL IVP PRN ×2 (00:41→07:33)
[2018-07-25] MEDS: SODIUM CHLORIDE FLUSH 0.9% 10 ML SYRINGE IVP SCH ×4 (00:41→17:45)
[2018-07-25] MEDS: PIPERACILLIN/TAZOBACTAM 4.5 GM in SODIUM CHLORIDE 0.9% MINIBAG 100 ML IV SCH ×3 (02:47→21:15)
[2018-07-25] MEDS: PROCHLORPERAZINE 10 MG/2 ML VIAL IVP PRN ×3 (04:39→17:53)
[2018-07-25 06:25] LABS: HGB - HEMOGLOBIN 10.4 g/dL (12.0-16.0); MEAN CORPUSCULAR HEMOGLOBIN 31.4 pg (27.0-31.0); MEAN CORPUSCULAR HGB CONC 34.2 g/dL (32.0-36.0); MEAN CORPUSCULAR VOLUME 91.7 fL (81.0-99.0); MEAN PLATELET VOLUME 7.4 fL (7.9-10.8); RED BLOOD COUNT 3.3 10^6/uL (4.20-5.40); RED CELL DISTRIBUTION WIDTH 14.6 % (12.0-15.0); WHITE BLOOD COUNT 5.1 x10^3/uL (4.8-10.8)
[2018-07-25 06:33] LABS: CALCIUM 7.7 mg/dL (8.5-10.3); CREATININE 1.1 mg/dL (0.4-1.0)
[2018-07-25] MEDS: LEVOTHYROXINE 25 MCG TABLET PO SCH (07:26)
[2018-07-25] MEDS: PANTOPRAZOLE 40 MG VIAL IVP SCH ×2 (07:27→17:45)
[2018-07-25] MEDS ORDERED: PROMETHAZINE 25 MG/1 ML VIAL IM STA (07:40)
[2018-07-25] MEDS: INSULIN ASPART 300 UNIT/3 ML PEN SUBQ SCH ×4 (08:03→21:15)
[2018-07-25] MEDS: LEVOTHYROXINE 112 MCG TABLET PO SCH (08:13)
[2018-07-25] MEDS ORDERED: HALOPERIDOL 5 MG/ML VIAL IVP PRN (09:00)
[2018-07-25] MEDS ORDERED: VENLAFAXINE 37.5 MG TABLET PO SCH (09:00)
[2018-07-25] MEDS ORDERED: NON FORMULARY MED (Levothyroxine Sodium [Levothyroxine Sodium] 137 MCG) PO SCH (09:00)
[2018-07-25] MEDS: TIMOLOL 0.5% OPHTH DROPS EACHEYE SCH ×2 (10:11→21:16)
[2018-07-25] MEDS: SODIUM CHLORIDE 0.9% 1,000 ML IV SCH (12:07)
--- NOTE | 2018-07-25 13:15 | PROVIDER PROGRESS NOTE ---
Assessment/Plan - Problem List (1) Metabolic encephalopathy Assessment/Plan: Multifactorial causes in this unfortunate female with stage IV carcinoid tumor. At this time it could be from her medications such as fentanyl, gabapentin. She is dehydrated. She is in pain. She appears to be having a GI bleed with hematochezia an has liver mets. CT scan shows bilateral changes of consolidation at her lung bases. She does not have an elevated white cell count, BUN and creatinine are normal but she appears to be dehydrated on physical exam with her oral mucosa. Lactic acid is normal in spite of being on metformin. So lactic acidosis is not on the differential. CT of head is negative for stroke, mets. Patient improved this am More alert and awake but still confused at times according to Continue IVFs and IV abx (2) Black stools Conclusion/Plan: In a patient whose had EGDs, colonoscopies, video endoscopies, small bowel enterography, all in an effort to identify her primary of her neuroendocrine metastatic disease. 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 At this time general surgery will dictate their own note but they have left me with the impression that she is not a candidate for EGD or therapy at this time. Even if they did the EGD, and found something, they do not think that she would survive surgery or treatment. Hb remains stable. Patient is a Jehovah witness. She is not a candidate for blood transfusions. Surgery consult pending (3) Health Care Associated Pneumonia Conclusion/Plan: On CT scan. The distribution and area of where she has pneumonia leads me to suspect that she has significant atelectasis which is then led to this pneumonia. She does not have hypoxia, nor does she have a fever or elevated w sowmya cell count. Plan: Continue IV zosyn and levaquin as she is at risk for gram-negative pneumonia because of her cancer and immunocompromise status Adjust antibiotics on the basis of blood cultures when they come back Acapella or incentive spirometry when she is more awake and able to cooperate Qualifiers: Pneumonia type: due to unspecified organism Laterality: bilateral Lung location: lower lobe of lung Qualified Code(s): J18.1 - Lobar pneumonia, unspecified organism (4) Controlled type 2 diabetes mellitus without complication, without long-term current use of insulin Conclusion/Plan: A1c is 8.2. During the stay we will avoid the use of metformin. Continue 0.9 normal saline to hydrate. Low-dose sliding scale insulin in a patient who will be on a clear liquid diet. (5) Pain due to dental caries Conclusion/Plan: She is started on empiric antibiotic therapy for her pneumonia. Therapy should cover her for any dental abscess. She will need to see a dentist in the outpatient setting. (6) Pain due to malignant neoplasm metastatic to bone Conclusion/Plan: She has a new fentanyl patch placed yesterday. We will observe her carefully to make sure that her respiratory rate remained stable. We will note that she does not do well with oral medications and will give Zofran and Compazine as needed. It is unlikely that her sedation is due to excessive pain medicines because she was not using her patch for 5 days. Pain is better controlled this am (7) Metastatic malignant neuroendocrine tumor to liver Conclusion/Plan: Also mets to bone. Patients prognosis appears to be poor. Patient and still want full treatment. Will need to follow up outpatient with oncologist. We will hold off on her everolimus tablets for right now given ongoing infection. - Current Meds Current Meds: Current Medications Generic Name Dose Route Start Last Admin Trade Name Freq PRN Reason Stop Dose Admin Fentanyl 1 patch 07/24/18 18:00 07/24/18 18:38 Duragesic TOP 1 patch Q3D RICHARD Administration Fentanyl 1 patch 07/24/18 18:00 07/24/18 18:38 Duragesic TOP 1 patch Q3D RICHARD Administration Haloperidol 1 mg 07/25/18 09:00 07/25/18 10:19 Haldol Inj IVP 1 mg Q6H PRN Administration Nausea / Vomiting Piperacillin Sod/Tazobactam 100 mls @ 100 mls/hr 07/25/18 03:00 07/25/18 10:09 Sod 4.5 gm/ Sodium Chloride IV 100 mls/hr Q6H RICHARD Administration Sodium Chloride 1,000 mls @ 100 mls/hr 07/24/18 21:00 07/25/18 12:07 Normal Saline 0.9% IV 100 mls/hr .Q10H RICHARD Administration Levofloxacin 750 mg in 150 mls @ 100 mls/hr 07/24/18 22:00 07/25/18 02:56 Levaquin 750 Mg/150 Ml IV Infused Q48H RICHARD Infusion Insulin Aspart 1 - 5 unit 07/25/18 08:00 07/25/18 11:25 Novolog SUBQ 1 unit 0800,1200,1700,2100 RICHARD Administration Protocol Levothyroxine Sodium 112 mcg 07/25/18 07:00 07/25/18 08:13 Synthroid PO Not Given QDAC RICHARD Levothyroxine Sodium 25 mcg 07/25/18 07:00 07/25/18 07:26 Synthroid PO 25 mcg QDAC RICHARD Administration Ondansetron HCl 4 mg 07/24/18 20:42 07/25/18 07:33 Zofran Inj IVP 4 mg Q6HR PRN Administration Nausea / Vomiting Pantoprazole Sodium 40 mg 07/24/18 21:00 07/25/18 07:27 Protonix IVP 40 mg BIDAC RICHARD Administration Prochlorperazine Edisylate 10 mg 07/24/18 20:42 07/25/18 11:39 Compazine Inj IVP 10 mg Q6HR PRN Administration Nausea / Vomiting Sodium Chloride 10 ml 07/24/18 20:26 07/25/18 04:40 Normal Saline Flush 0.9% IVP 10 ml PRN PRN Administration NEEDED PER PROVIDER ORDERS Sodium Chloride 10 ml 07/25/18 01:00 07/25/18 10:19 Normal Saline Flush 0.9% IVP 10 ml 0100,0900,1700 RICHARD Administration Timolol Maleate 1 drops 07/24/18 21:00 07/25/18 10:11 Timoptic 0.5% Ophth Drops EACHEYE 1 drops BID RICHARD Administration - Lab Result Lab results reviewed: Yes Fish Bone Diagrams: 07/25/18 06:06 07/25/18 06:06 - Diagnostic Imaging Results Diagnostic Imaging Results: Final report reviewed - Additional Planning Condition/Complexity: Guarded My Orders: My Active Orders 07/25/18 09:00 Haloperidol Inj [Haldol Inj] 1 mg IVP Q6H PRN 07/25/18 13:00 Venlafaxine ER [Effexor ER] 112.5 mg PO DAILY Consult/Specialty: Surgery Plan Discussed with:: Patient, Spouse Time Spent: 31-60 minutes Subjective - Subjective Patient Reports: Abdominal Pain (Improved), Fatigue, Nausea (Continues, unable to eat), Other (Feels very weak) Nursing Reports: Confused Objective Vital Signs: Vital Signs - 24 hr 07/24/18 07/24/18 07/24/18 15:04 16:43 19:45 Temperature 36.4 C L 37.6 C H Heart Rate 101 H 84 91 Heart Rate [ Brachial] Respiratory 15 14 15 Rate Blood Pressure 137/90 H 157/94 H 133/83 H Blood Pressure [Right Brachial artery] O2 Saturation 98 98 98 07/24/18 07/24/18 07/25/18 20:59 21:40 00:00 Temperature 36.5 C 36.9 C 36.8 C Heart Rate 100 Heart Rate [ 92 78 Brachial] Respiratory 18 20 16 Rate Blood Pressure 137/85 H Blood Pressure 134/85 H 127/76 [Right Brachial artery] O2 Saturation 97 98 97 07/25/18 08:25 Temperature 36.9 C Heart Rate Heart Rate [ 68 Brachial] Respiratory 20 Rate Blood Pressure Blood Pressure 133/79 H [Right Brachial artery] O2 Saturation 96 Oxygen O2 Source Room air I&O (Last 24 Hrs): Intake and Output Totals x24h 07/23/18 07/24/18 07/25/18 23:59 23:59 23:59 Intake Total 2641.667 1158.333 Output Total 350 Balance 2641.667 808.333 General: Alert, Oriented x3, Cooperative, Other (Confused at times) HEENT: Atraumatic, PERRLA, EOMI, Other (Dry mucus membranes) Neck: Supple, No JVD, No thyromegaly, +2 carotid pulse wo bruit, No LAD Lymphatic: no adenopathy Neuro: Alert, Non Focal, CN 2-12 Grossly Intact, Oriented Times 3 Cardiovascular: Regular rate, Normal S1, Normal S2, No murmurs Respiratory: Chest non-tender, No respiratory distress, Rhonchi (Bases) Abdomen: Normal bowel sounds, Soft, No tenderness, No hepatospenomegaly Extremities: No clubbing, No cyanosis, Normal pulses Skin: No rashes, No breakdown - Results Results: Laboratory Results WBC 5.1 x10^3/uL (4.8-10.8) 07/25/18 06:06 RBC 3.30 10^6/uL (4.20-5.40) L 07/25/18 06:06 Hgb 10.4 g/dL (12.0-16.0) L 07/25/18 06:06 Hct 30.3 % (37.0-47.0) L 07/25/18 06:06 MCV 91.7 fL (81.0-99.0) 07/25/18 06:06 MCH 31.4 pg (27.0-31.0) H 07/25/18 06:06 MCHC 34.2 g/dL (32.0-36.0) 07/25/18 06:06 RDW 14.6 % (12.0-15.0) 07/25/18 06:06 Plt Count 166 10^3/uL (130-450) 07/25/18 06:06 MPV 7.4 fL (7.9-10.8) L 07/25/18 06:06 Neut # (Auto) 5.6 10^3/uL (1.5-6.6) 07/24/18 15:25 Lymph # (Auto) 0.4 10^3/uL (1.5-3.5) L 07/24/18 15:25 [place] # (Auto) 0.9 10^3/uL (0.0-1.0) 07/24/18 15:25 Eos # (Auto) 0.1 10^3/uL (0.0-0.7) 07/24/18 15:25 Baso # (Auto) 0.1 10^3/uL (0.0-0.1) 07/24/18 15:25 Absolute Nucleated RBC 0.00 x10^3/uL 07/24/18 15:25 Nucleated RBC % 0.0 /100WBC 07/24/18 15:25 PT 14.2 secs (9.9-12.6) H 07/24/18 15:25 INR 1.3 (0.8-1.2) H 07/24/18 15:25 Sodium 135 mmol/L (135-145) 07/25/18 06:06 Potassium 3.4 mmol/L (3.5-5.0) L 07/25/18 06:06 Chloride 102 mmol/L (101-111) 07/25/18 06:06 Carbon Dioxide 23 mmol/L (21-32) 07/25/18 06:06 Anion Gap 10.0 (6-13) 07/25/18 06:06 BUN 9 mg/dL (6-20) 07/25/18 06:06 Creatinine 1.1 mg/dL (0.4-1.0) H 07/25/18 06:06 Estimated GFR (MDRD) 50 (>89) L 07/25/18 06:06 Glucose 194 mg/dL (70-100) H 07/25/18 06:06 POC Whole Bld Glucose 165 mg/dL (70 - 100) H 07/25/18 11:07 Glycated Hemoglobin 8.2 % (4.6-6.2) H 07/24/18 23:57 Estim Average Glucose 189 (70-100) H 07/24/18 23:57 Lactic Acid 1.6 mmol/L (0.5-2.2) 07/24/18 18:25 Calcium 7.7 mg/dL (8.5-10.3) L 07/25/18 06:06 Total Bilirubin 1.2 mg/dL (0.2-1.0) H 07/24/18 15:25 AST 57 IU/L (10-42) H 07/24/18 15:25 ALT 43 IU/L (10-60) 07/24/18 15:25 Alkaline Phosphatase 130 IU/L (42-121) H 07/24/18 15:25 Total Protein 7.4 g/dL (6.7-8.2) 07/24/18 15:25 Albumin 3.7 g/dL (3.2-5.5) 07/24/18 15:25 Globulin 3.7 g/dL (2.1-4.2) 07/24/18 15:25 Albumin/Globulin Ratio 1.0 (1.0-2.2) 07/24/18 15:25 Lipase 23 U/L (22-51) 07/24/18 15:25 Urine Color YELLOW 07/24/18 16:30 Urine Clarity CLEAR (CLEAR) 07/24/18 16:30 Urine pH 8.0 PH (5.0-7.5) H 07/24/18 16:30 Ur Specific [place] 1.015 (1.002-1.030) 07/24/18 16:30 Urine Protein TRACE mg/dL (NEGATIVE) 07/24/18 16:30 Urine Glucose (UA) 100 mg/dL (NEGATIVE) H 07/24/18 16:30 Urine Ketones 40 mg/dL (NEGATIVE) H 07/24/18 16:30 Urine Occult Blood NEGATIVE (NEGATIVE) 07/24/18 16:30 Urine Nitrite NEGATIVE (NEGATIVE) 07/24/18 16:30 Urine Bilirubin NEGATIVE (NEGATIVE) 07/24/18 16:30 Urine Urobilinogen 1 (NORMAL) E.U./dL (NORMAL) 07/24/18 16:30 Ur Leukocyte Esterase NEGATIVE (NEGATIVE) 07/24/18 16:30 Ur Microscopic Review NOT INDICATED 07/24/18 16:30 Urine Culture Comments NOT INDICATED 07/24/18 16:30 - Procedures Procedures: Procedures EXCISION OF LEFT KNEE JOINT, PERC ENDO APPROACH (11/26/15) INSERTION OF INFUSION DEV INTO SUP VENA CAVA, PERC APPROACH (11/26/15) REPLACEMENT OF LEFT LENS WITH SYNTH SUB, PERC APPROACH (03/30/16) REPLACEMENT OF RIGHT LENS WITH SYNTH SUB, PERC APPROACH (03/09/16) ABX Reporting Has patient been on IV antibiotics over the past 48 hours?: No Current Medications - Current Medications Current Medications: Active Medications Generic Name Dose Route Start Last Admin Trade Name Freq PRN Reason Stop Dose Admin Acetaminophen 650 mg 07/24/18 20:42 Tylenol PO Q4HR PRN Pain 1 to 4 Diltiazem HCl 180 mg 07/25/18 09:00 Cardizem Cd PO DAILY RICHARD Fentanyl 1 patch 07/24/18 18:00 07/24/18 18:38 Duragesic TOP 1 patch Q3D RICHARD Administration Fentanyl 1 patch 07/24/18 18:00 07/24/18 18:38 Duragesic TOP 1 patch Q3D RICHARD Administration Fentanyl 1 patch 07/27/18 18:00 Duragesic TOP Q72H RICHARD Fentanyl 1 patch 07/27/72 18:00 Duragesic TOP Q72H RICHARD Haloperidol 1 mg 07/25/18 09:00 07/25/18 10:19 Haldol Inj IVP 1 mg Q6H PRN Administration Nausea / Vomiting Piperacillin Sod/Tazobactam 100 mls @ 100 mls/hr 07/25/18 03:00 07/25/18 10:09 Sod 4.5 gm/ Sodium Chloride IV 100 mls/hr Q6H RICHARD Administration Sodium Chloride 1,000 mls @ 100 mls/hr 07/24/18 21:00 07/25/18 12:07 Normal Saline 0.9% IV 100 mls/hr .Q10H RICHARD Administration Levofloxacin 750 mg in 150 mls @ 100 mls/hr 07/24/18 22:00 07/25/18 02:56 Levaquin 750 Mg/150 Ml IV Infused Q48H RICHARD Infusion Insulin Aspart 1 - 5 unit 07/25/18 08:00 07/25/18 11:25 Novolog SUBQ 1 unit 0800,1200,1700,2100 RICHARD Administration Protocol Levothyroxine Sodium 112 mcg 07/25/18 07:00 07/25/18 08:13 Synthroid PO Not Given QDAC RICHARD Levothyroxine Sodium 25 mcg 07/25/18 07:00 07/25/18 07:26 Synthroid PO 25 mcg QDAC RICHARD Administration Lidocaine HCl 15 ml 07/24/18 20:50 Xylocaine Viscous 2% MM Q3H PRN Analgesia Loperamide HCl 2 mg 07/24/18 20:50 Imodium PO DAILY PRN Diarrhea Losartan Potassium 50 mg 07/25/18 09:00 Cozaar PO DAILY RICHARD Ondansetron HCl 4 mg 07/24/18 20:42 07/25/18 07:33 Zofran Inj IVP 4 mg Q6HR PRN Administration Nausea / Vomiting Ondansetron HCl 4 mg 07/24/18 20:42 Zofran Odt TL Q6HR PRN Nausea / Vomiting Pantoprazole Sodium 40 mg 07/24/18 21:00 07/25/18 07:27 Protonix IVP 40 mg BIDAC RICHARD Administration Polyethylene Glycol 17 gm 07/25/18 09:00 Miralax PO DAILY [facility] Prochlorperazine Edisylate 10 mg 07/24/18 20:42 07/25/18 11:39 Compazine Inj IVP 10 mg Q6HR PRN Administration Nausea / Vomiting Saccharomyces Boulardii 250 mg 07/25/18 08:00 Florastor PO BIDWM RICHARD Sodium Chloride 10 ml 07/24/18 20:26 07/25/18 04:40 Normal Saline Flush 0.9% IVP 10 ml PRN PRN Administration NEEDED PER PROVIDER ORDERS Sodium Chloride 10 ml 07/25/18 01:00 07/25/18 10:19 Normal Saline Flush 0.9% IVP 10 ml 0100,0900,1700 RICHARD Administration Timolol Maleate 1 drops 07/24/18 21:00 07/25/18 10:11 Timoptic 0.5% Ophth Drops EACHEYE 1 drops BID RICHARD Administration Venlafaxine HCl 112.5 mg 07/25/18 13:00 Effexor Er PO DAILY RICHARD Hydrochlorothiazide 12.5 mg PO DAILY 08/31/15 Oxymetazoline HCl [Afrin] 2 spray NS QPM 08/31/15 Prochlorperazine [Compazine] 5 mg PO Q6HR PRN 08/31/15 Losartan [Cozaar] 50 mg PO DAILY 10/26/15 [id number] CD [Cardizem Cd] 180 mg PO DAILY 10/26/15 Levothyroxine Sodium 137 mcg PO DAILY 03/08/16 Omeprazole [PriLOSEC] 20 mg PO DAILY 03/08/16 Rizatriptan Benzoate [Rizatriptan] 5 mg PO ONCE 03/08/16 Lanreotide Acetate [Somatuline Depot] 120 mg SQ .MONTHLY 04/10/17 Timolol 0.5% Ophth Drops [Timoptic 0.5% Ophth Drops] 1 drops EACHEYE BID 08/28/17 Gabapentin 300 mg PO TID 01/24/18 Loperamide [Imodium] 2 mg PO DAILY PRN 01/29/18 Metformin HCl [Metformin HCl ER] 500 mg PO QPM 03/06/18 LORazepam [Ativan] 0.5 mg PO Q6HR PRN 05/07/18 Ondansetron [Zuplenz] 8 mg PO Q8HR PRN 05/07/18 Everolimus [Afinitor] 10 mg PO DAILY 05/11/18 Venlafaxine ER [Effexor ER] 112.5 mg PO DAILY 07/25/18 Zolpidem Tartrate [Ambien] 10 mg PO QPM PRN 07/25/18 fentaNYL [Fentanyl 75mcg patch] 75 mcg TD Q3D 07/25/18
[2018-07-25] MEDS: VENLAFAXINE ER 37.5 MG CAPSULE PO SCH (13:40)
[2018-07-25] MEDS: SACCHAROMYCES BOULARDII 250 MG CAPSULE PO SCH ×2 (16:25→17:45)
[2018-07-25] MEDS: diltiaZEM CD 180 MG CAPSULE PO SCH (16:26)
[2018-07-25] MEDS: POLYETHYLENE GLYCOL 3350 17 GM PACKET PO SCH (16:26)
[2018-07-25] MEDS: LOSARTAN 50 MG TABLET PO SCH (16:26)
[2018-07-25] MEDS ORDERED: ZOLPIDEM 5 MG TABLET PO PRN (21:24)
[2018-07-26] MEDS: SODIUM CHLORIDE 0.9% 1,000 ML IV SCH ×2 (01:41→04:55)
[2018-07-26] MEDS: SODIUM CHLORIDE FLUSH 0.9% 10 ML SYRINGE IVP SCH ×3 (01:46→16:24)
[2018-07-26] MEDS: PIPERACILLIN/TAZOBACTAM 4.5 GM in SODIUM CHLORIDE 0.9% MINIBAG 100 ML IV SCH ×3 (04:55→20:36)
[2018-07-26 05:48] LABS: BASOPHILS # (AUTO) 0.1 10^3/uL (0.0-0.1); BASOPHILS % (AUTO) 1.4 %; EOSINOPHILS # (AUTO) 0.2 10^3/uL (0.0-0.7); EOSINOPHILS % (AUTO) 3.5 %; HGB - HEMOGLOBIN 9.9 g/dL (12.0-16.0); LYMPHOCYTES # (AUTO) 0.4 10^3/uL (1.5-3.5); LYMPHOCYTES % (AUTO) 8.4 %; MEAN CORPUSCULAR HEMOGLOBIN 31.6 pg (27.0-31.0); MEAN CORPUSCULAR HGB CONC 34.9 g/dL (32.0-36.0); MEAN CORPUSCULAR VOLUME 90.7 fL (81.0-99.0); MEAN PLATELET VOLUME 7.3 fL (7.9-10.8); MONOCYTES # (AUTO) 0.8 10^3/uL (0.0-1.0); MONOCYTES % (AUTO) 14.5 %; NEUTROPHILS # (AUTO) 3.8 10^3/uL (1.5-6.6); NEUTROPHILS % (AUTO) 72.2 %; PLT - PLATELET COUNT 175 10^3/uL (130-450); RED BLOOD COUNT 3.13 10^6/uL (4.20-5.40); RED CELL DISTRIBUTION WIDTH 14.6 % (12.0-15.0); WHITE BLOOD COUNT 5.3 x10^3/uL (4.8-10.8)
[2018-07-26 05:55] LABS: CALCIUM 7.1 mg/dL (8.5-10.3); CREATININE 1.1 mg/dL (0.4-1.0)
[2018-07-26] MEDS: LEVOTHYROXINE 112 MCG TABLET PO SCH (06:49)
[2018-07-26] MEDS: LEVOTHYROXINE 25 MCG TABLET PO SCH (06:49)
[2018-07-26] MEDS: PANTOPRAZOLE 40 MG VIAL IVP SCH ×2 (06:51→16:23)
[2018-07-26] MEDS: LOSARTAN 50 MG TABLET PO SCH (08:10)
[2018-07-26] MEDS: SACCHAROMYCES BOULARDII 250 MG CAPSULE PO SCH ×2 (08:10→16:23)
[2018-07-26] MEDS: VENLAFAXINE ER 37.5 MG CAPSULE PO SCH (08:11)
[2018-07-26] MEDS: diltiaZEM CD 180 MG CAPSULE PO SCH (08:11)
[2018-07-26] MEDS: INSULIN ASPART 300 UNIT/3 ML PEN SUBQ SCH ×4 (08:12→20:40)
[2018-07-26] MEDS: POLYETHYLENE GLYCOL 3350 17 GM PACKET PO SCH (08:13)
[2018-07-26] MEDS: TIMOLOL 0.5% OPHTH DROPS EACHEYE SCH ×2 (08:15→20:41)
[2018-07-26] MEDS ORDERED: NS W/20 MEQ KCL 1,000 ML IV SCH (10:00)
[2018-07-26] MEDS ORDERED: GABAPENTIN 300 MG CAPSULE PO PRN (12:00)
[2018-07-26] MEDS ORDERED: LIDOCAINE VISCOUS 2% 15 ML UDC MM PRN (12:03)
--- NOTE | 2018-07-26 13:46 | PROVIDER PROGRESS NOTE ---
Assessment/Plan - Problem List (1) Metabolic encephalopathy Assessment/Plan: Resolved with IVFs and abx Likely secondary to pneumonia and dehydration Patient is alert and back to her baseline mental status (2) Black stools Conclusion/Plan: In a patient whose had EGDs, colonoscopies, video endoscopies, small bowel enterography, all in an effort to identify her primary of her neuroendocrine metastatic disease. 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 General surgery feels that the patient is not a candidate for EGD given that the findings of EGD may lead to surgery for which the patient would be a poor candidate and may not survive. Patients baseline Hb is 12 and she is down to 9.9. She continues to have dark tarry stools which are occult blood positive. Patient is a Jehovah witness therefore no blood products. Continue to monitor hb Will get official consult from surgery if patient continues to drop Hb (3) Health Care Associated Pneumonia Conclusion/Plan: On CT scan. The distribution and area of where she has pneumonia leads me to suspect that she has significant atelectasis which is then led to this pneumonia. She does not have hypoxia, nor does she have a fever or elevated white cell count. Plan: Continue IV zosyn and levaquin as she is at risk for gram-negative pneumonia because of her cancer and immunocompromise status Blood cx negative will continue IV abx for now Hold everolimus as it is immunosupressive and could have caused her nausea until we speak with Dr Monica Jama who is out of the office till Sunday Acapella or incentive spirometry when she is more awake and able to cooperate Qualifiers: Pneumonia type: due to unspecified organism Laterality: bilateral Lung location: lower lobe of lung Qualified Code(s): J18.1 - Lobar pneumonia, unspecified organism (4) Controlled type 2 diabetes mellitus without complication, without long-term current use of insulin Conclusion/Plan: A1c is 8.2. During the stay we will avoid the use of metformin. Continue 0.9 n ormal saline to hydrate. Low-dose sliding scale insulin in a patient who will be on a clear liquid diet. (5) Pain due to dental caries Conclusion/Plan: She is started on empiric antibiotic therapy for her pneumonia. Therapy should cover her for any dental infection. She will need to see a dentist in the outpatient setting. (6) Pain due to malignant neoplasm metastatic to bone Conclusion/Plan: Fentanyl patch. We will observe her carefully to make sure that her respiratory rate remained stable. We will note that she does not do well with oral medications and will give Zofran and Compazine as needed. It is unlikely that her sedation is due to excessive pain medicines because she was not using her patch for 5 days. Pain is controlled (7) Metastatic malignant neuroendocrine tumor to liver Conclusion/Plan: Also mets to bone. Patients prognosis appears to be poor. Patient and still want full treatment. Will need to follow up outpatient with oncologist. We will hold off on her everolimus tablets for right now given ongoing infection. - Current Meds Current Meds: Current Medications Generic Name Dose Route Start Last Admin Trade Name Freq PRN Reason Stop Dose Admin Diltiazem HCl 180 mg 07/25/18 09:00 07/26/18 08:11 Cardizem Cd PO 180 mg DAILY RICHARD Administration Fentanyl 1 patch 07/27/72 18:00 07/25/18 16:20 Duragesic TOP Not Given Q72H RICHARD Haloperidol 1 mg 07/25/18 09:00 07/25/18 10:19 Haldol Inj IVP 1 mg Q6H PRN Administration Nausea / Vomiting Levofloxacin 750 mg in 150 mls @ 100 mls/hr 07/24/18 22:00 07/25/18 02:56 Levaquin 750 Mg/150 Ml IV Infused Q48H RICHARD Infusion Piperacillin Sod/Tazobactam 100 mls @ 25 mls/hr 07/25/18 20:00 07/26/18 12:08 Sod 4.5 gm/ Sodium Chloride IV 25 mls/hr Q8H RICHARD Administration Potassium Chloride/Sodium Chloride 1,000 mls @ 125 mls/hr 07/26/18 10:00 07/26/18 09:54 Normal Saline 0.9% W/20 Meq Kcl IV 125 mls/hr .Q8H RICHARD Administration Insulin Aspart 1 - 5 unit 07/25/18 08:00 07/26/18 12:05 Novolog SUBQ 1 unit 0800,1200,1700,2100 RICHARD Administration Protocol Levothyroxine Sodium 112 mcg 07/25/18 07:00 07/26/18 06:49 Synthroid PO 112 mcg QDAC RICHARD Administration Levothyroxine Sodium 25 mcg 07/25/18 07:00 07/26/18 06:49 Synthroid PO 25 mcg QDAC RICHARD Administration Losartan Potassium 50 mg 07/25/18 09:00 07/26/18 08:10 Cozaar PO 50 mg DAILY RICHARD Administration Ondansetron HCl 4 mg 07/24/18 20:42 07/25/18 07:33 Zofran Inj IVP 4 mg Q6HR PRN Administration Nausea / Vomiting Pantoprazole Sodium 40 mg 07/24/18 21:00 07/26/18 06:51 Protonix IVP 40 mg BIDAC RICHARD Administration Polyethylene Glycol 17 gm 07/25/18 09:00 07/26/18 08:13 Miralax PO Not Given DAILY RICHARD Prochlorperazine Edisylate 10 mg 07/24/18 20:42 07/25/18 17:53 Compazine Inj IVP 10 mg Q6HR PRN Administration Nausea / Vomiting Saccharomyces Boulardii 250 mg 07/25/18 08:00 07/26/18 08:10 Florastor PO 250 mg BIDWM RICHARD Administration Sodium Chloride 10 ml 07/24/18 20:26 07/25/18 04:40 Normal Saline Flush 0.9% IVP 10 ml PRN PRN Administration NEEDED PER PROVIDER ORDERS Sodium Chloride 10 ml 07/25/18 01:00 07/26/18 08:13 Normal Saline Flush 0.9% IVP Not Given 0100,0900,1700 RICHARD Timolol Maleate 1 drops 07/24/18 21:00 07/26/18 08:15 Timoptic 0.5% Ophth Drops EACHEYE 1 drops BID RICHARD Administration Venlafaxine HCl 112.5 mg 07/25/18 13:00 07/26/18 08:11 Effexor Er PO 112.5 mg DAILY RICHARD Administration Zolpidem Tartrate 5 mg 07/25/18 21:24 07/25/18 22:07 Ambien PO 5 mg QPM PRN Administration Insomnia - Lab Result Lab results reviewed: Yes Fish Bone Diagrams: 07/26/18 05:30 07/26/18 05:30 - Diagnostic Imaging Results Diagnostic Imaging Results: Final report reviewed - Additional Planning Condition/Complexity: Guarded My Orders: My Active Orders 07/25/18 13:00 Venlafaxine ER [Effexor ER] 112.5 mg PO DAILY 07/26/18 10:00 Ns W/20 Meq KCl [Normal Saline 0.9% W/20 Meq KCl] 1,000 ml IV 125 mls/hr 07/26/18 12:00 Gabapentin [Neurontin] 300 mg PO TID PRN 07/26/18 Lunch Regular Diet [DIET] Consult/Specialty: Other (Palliative Care) Plan Discussed with:: Patient, Spouse Time Spent: 31-60 minutes Subjective - Subjective Patient Reports: Feeling Better, Resting Comfortably, Nausea (Improved), Pain (Improved), Other (Bowel movement with black tarry stools this am) Nursing Reports: No Complaints Objective Vital Signs: Vital Signs - 24 hr 07/25/18 07/26/18 07/26/18 16:03 00:05 08:00 Temperature 36.9 C 37.0 C 36.8 C Heart Rate Heart Rate [ 84 80 81 Brachial] Respiratory 16 20 18 Rate Blood Pressure 135/75 H 131/83 H 129/82 H [Right Brachial artery] O2 Saturation 97 94 95 07/26/18 10:49 Temperature 36.8 C Heart Rate 81 Heart Rate [ Brachial] Respiratory 18 Rate Blood Pressure [Right Brachial artery] O2 Saturation 94 Oxygen O2 Source Room air I&O (Last 24 Hrs): Intake and Output Totals x24h 07/24/18 07/25/18 07/26/18 23:59 23:59 23:59 Intake Total 2641.667 2486.666 1761.660 Output Total 350 Balance 2641.667 2136.666 1761.660 General: Alert, Oriented x3, Cooperative, No acute distress HEENT: Atraumatic, PERRLA, EOMI, Other (Dry mucus membranes) Neck: Supple, No JVD, No thyromegaly, +2 carotid pulse wo bruit, No LAD Lymphatic: no adenopathy Neuro: Alert, Non Focal, CN 2-12 Grossly Intact, Oriented Times 3 Cardiovascular: Regular rate, Normal S1, Normal S2, No murmurs Respiratory: Chest non-tender, No respiratory distress, Rhonchi (Bases) Abdomen: Normal bowel sounds, Soft, No tenderness, No hepatospenomegaly Extremities: No clubbing, No cyanosis, No edema, Normal pulses Skin: No rashes, No breakdown - Results Results: Laboratory Results WBC 5.3 x10^3/uL (4.8-10.8) 07/26/18 05:30 RBC 3.13 10^6/uL (4.20-5.40) L 07/26/18 05:30 Hgb 9.9 g/dL (12.0-16.0) L 07/26/18 05:30 Hct 28.4 % (37.0-47.0) L 07/26/18 05:30 MCV 90.7 fL (81.0-99.0) 07/26/18 05:30 MCH 31.6 pg (27.0-31.0) H 07/26/18 05:30 MCHC 34.9 g/dL (32.0-36.0) 07/26/18 05:30 RDW 14.6 % (12.0-15.0) 07/26/18 05:30 Plt Count 175 10^3/uL (130-450) 07/26/18 05:30 MPV 7.3 fL (7.9-10.8) L 07/26/18 05:30 Neut # (Auto) 3.8 10^3/uL (1.5-6.6) 07/26/18 05:30 Lymph # (Auto) 0.4 10^3/uL (1.5-3.5) L 07/26/18 05:30 [place] # (Auto) 0.8 10^3/uL (0.0-1.0) 07/26/18 05:30 Eos # (Auto) 0.2 10^3/uL (0.0-0.7) 07/26/18 05:30 Baso # (Auto) 0.1 10^3/uL (0.0-0.1) 07/26/18 05:30 Absolute Nucleated RBC 0.01 x10^3/uL 07/26/18 05:30 Nucleated RBC % 0.2 /100WBC 07/26/18 05:30 PT 14.2 secs (9.9-12.6) H 07/24/18 15:25 INR 1.3 (0.8-1.2) H 07/24/18 15:25 Sodium 133 mmol/L (135-145) L 07/26/18 05:30 Potassium 3.1 mmol/L (3.5-5.0) L 07/26/18 05:30 Chloride 103 mmol/L (101-111) 07/26/18 05:30 Carbon Dioxide 21 mmol/L (21-32) 07/26/18 05:30 Anion Gap 9.0 (6-13) 07/26/18 05:30 BUN 9 mg/dL (6-20) 07/26/18 05:30 Creatinine 1.1 mg/dL (0.4-1.0) H 07/26/18 05:30 Estimated GFR (MDRD) 50 (>89) L 07/26/18 05:30 Glucose 154 mg/dL (70-100) H 07/26/18 05:30 POC Whole Bld Glucose 151 mg/dL (70 - 100) H 07/26/18 11:35 Glycated Hemoglobin 8.2 % (4.6-6.2) H 07/24/18 23:57 Estim Average Glucose 189 (70-100) H 07/24/18 23:57 Lactic Acid 1.6 mmol/L (0.5-2.2) 07/24/18 18:25 Calcium 7.1 mg/dL (8.5-10.3) L 07/26/18 05:30 Total Bilirubin 1.2 mg/dL (0.2-1.0) H 07/24/18 15:25 AST 57 IU/L (10-42) H 07/24/18 15:25 ALT 43 IU/L (10-60) 07/24/18 15:25 Alkaline Phosphatase 130 IU/L (42-121) H 07/24/18 15:25 Total Protein 7.4 g/dL (6.7-8.2) 07/24/18 15:25 Albumin 3.7 g/dL (3.2-5.5) 07/24/18 15:25 Globulin 3.7 g/dL (2.1-4.2) 07/24/18 15:25 Albumin/Globulin Ratio 1.0 (1.0-2.2) 07/24/18 15:25 Lipase 23 U/L (22-51) 07/24/18 15:25 Urine Color YELLOW 07/24/18 16:30 Urine Clarity CLEAR (CLEAR) 07/24/18 16:30 Urine pH 8.0 PH (5.0-7.5) H 07/24/18 16:30 Ur Specific [place] 1.015 (1.002-1.030) 07/24/18 16:30 Urine Protein TRACE mg/dL (NEGATIVE) 07/24/18 16:30 Urine Glucose (UA) 100 mg/dL (NEGATIVE) H 07/24/18 16:30 Urine Ketones 40 mg/dL (NEGATIVE) H 07/24/18 16:30 Urine Occult Blood NEGATIVE (NEGATIVE) 07/24/18 16:30 Urine Nitrite NEGATIVE (NEGATIVE) 07/24/18 16:30 Urine Bilirubin NEGATIVE (NEGATIVE) 07/24/18 16:30 Urine Urobilinogen 1 (NORMAL) E.U./dL (NORMAL) 07/24/18 16:30 Ur Leukocyte Esterase NEGATIVE (NEGATIVE) 07/24/18 16:30 Ur Microscopic Review NOT INDICATED 07/24/18 16:30 Urine Culture Comments NOT INDICATED 07/24/18 16:30 - Procedures Procedures: Procedures EXCISION OF LEFT KNEE JOINT, PERC ENDO APPROACH (11/26/15) INSERTION OF INFUSION DEV INTO SUP VENA CAVA, PERC APPROACH (11/26/15) REPLACEMENT OF LEFT LENS WITH SYNTH SUB, PERC APPROACH (03/30/16) REPLACEMENT OF RIGHT LENS WITH SYNTH SUB, PERC APPROACH (03/09/16) ABX Reporting Has patient been on IV antibiotics over the past 48 hours?: No Current Medications - Current Medications Current Medications: Active Medications Generic Name Dose Route Start Last Admin Trade Name Freq PRN Reason Stop Dose Admin Acetaminophen 650 mg 07/24/18 20:42 Tylenol PO Q4HR PRN Pain 1 to 4 Diltiazem HCl 180 mg 07/25/18 09:00 07/26/18 08:11 Cardizem Cd PO 180 mg DAILY RICHARD Administration Fentanyl 1 patch 07/27/18 18:00 Duragesic TOP Q72H RICHARD Fentanyl 1 patch 07/27/72 18:00 07/25/18 16:20 Duragesic TOP Not Given Q72H RICHARD Gabapentin 300 mg 07/26/18 12:00 Neurontin PO TID PRN PAIN Haloperidol 1 mg 07/25/18 09:00 07/25/18 10:19 Haldol Inj IVP 1 mg Q6H PRN Administration Nausea / Vomiting Levofloxacin 750 mg in 150 mls @ 100 mls/hr 07/24/18 22:00 07/25/18 02:56 Levaquin 750 Mg/150 Ml IV Infused Q48H RICHARD Infusion Piperacillin Sod/Tazobactam 100 mls @ 25 mls/hr 07/25/18 20:00 07/26/18 12:08 Sod 4.5 gm/ Sodium Chloride IV 25 mls/hr Q8H RICHARD Administration Potassium Chloride/Sodium Chloride 1,000 mls @ 125 mls/hr 07/26/18 10:00 07/26/18 09:54 Normal Saline 0.9% W/20 Meq Kcl IV 125 mls/hr .Q8H RICHARD Administration Insulin Aspart 1 - 5 unit 07/25/18 08:00 07/26/18 12:05 Novolog SUBQ 1 unit 0800,1200,1700,2100 RICHARD Administration Protocol Levothyroxine Sodium 112 mcg 07/25/18 07:00 07/26/18 06:49 Synthroid PO 112 mcg QDAC RICHARD Administration Levothyroxine Sodium 25 mcg 07/25/18 07:00 07/26/18 06:49 Synthroid PO 25 mcg QDAC RICHARD Administration Lidocaine HCl 15 ml 07/26/18 12:03 Xylocaine Viscous 2% MM Q3H PRN Analgesia Loperamide HCl 2 mg 07/24/18 20:50 Imodium PO DAILY PRN Diarrhea Losartan Potassium 50 mg 07/25/18 09:00 07/26/18 08:10 Cozaar PO 50 mg DAILY RICHARD Administration Ondansetron HCl 4 mg 07/24/18 20:42 07/25/18 07:33 Zofran Inj IVP 4 mg Q6HR PRN Administration Nausea / Vomiting Ondansetron HCl 4 mg 07/24/18 20:42 Zofran Odt TL Q6HR PRN Nausea / Vomiting Pantoprazole Sodium 40 mg 07/24/18 21:00 07/26/18 06:51 Protonix IVP 40 mg BIDAC RICHARD Administration Polyethylene Glycol 17 gm 07/25/18 09:00 07/26/18 08:13 Miralax PO Not Given DAILY RICHARD Prochlorperazine Edisylate 10 mg 07/24/18 20:42 07/25/18 17:53 Compazine Inj IVP 10 mg Q6HR PRN Administration Nausea / Vomiting Saccharomyces Boulardii 250 mg 07/25/18 08:00 07/26/18 08:10 Florastor PO 250 mg BIDWM RICHARD Administration Sodium Chloride 10 ml 07/24/18 20:26 07/25/18 04:40 Normal Saline Flush 0.9% IVP 10 ml PRN PRN Administration NEEDED PER PROVIDER ORDERS Sodium Chloride 10 ml 07/25/18 01:00 07/26/18 08:13 Normal Saline Flush 0.9% IVP Not Given 0100,0900,1700 RICHARD Timolol Maleate 1 drops 07/24/18 21:00 07/26/18 08:15 Timoptic 0.5% Ophth Drops EACHEYE 1 drops BID RICHARD Administration Venlafaxine HCl 112.5 mg 07/25/18 13:00 07/26/18 08:11 Effexor Er PO 112.5 mg DAILY RICHARD Administration Zolpidem Tartrate 5 mg 07/25/18 21:24 07/25/18 22:07 Ambien PO 5 mg QPM PRN Administration Insomnia Hydrochlorothiazide 12.5 mg PO DAILY 08/31/15 Oxymetazoline HCl [Afrin] 2 spray NS QPM 08/31/15 Prochlorperazine [Compazine] 5 mg PO Q6HR PRN 08/31/15 Losartan [Cozaar] 50 mg PO DAILY 10/26/15 diltiaZEM CD [Cardizem Cd] 180 mg PO DAILY 10/26/15 Levothyroxine Sodium 137 mcg PO QDAC 03/08/16 Omeprazole [PriLOSEC] 20 mg PO QDAC 03/08/16 Rizatriptan Benzoate [Rizatriptan] 5 mg PO ONCE PRN 03/08/16 Lanreotide Acetate [Somatuline Depot] 120 mg SQ Q28D 04/10/17 Timolol 0.5% Ophth Drops [Timoptic 0.5% Ophth Drops] 1 drops EACHEYE BID 08/28/17 Gabapentin 300 mg PO TID PRN 01/24/18 Loperamide [Imodium] 2 mg PO PRN PRN 01/29/18 Metformin HCl [Metformin HCl ER] 500 mg PO BIDWM 03/06/18 LORazepam [Ativan] 0.5 mg PO Q6HR PRN 05/07/18 Ondansetron [Zuplenz] 8 mg PO Q8HR PRN 05/07/18 Denosumab [Xgeva] 120 mg SUBQ Q28D 07/25/18 Venlafaxine ER [Effexor ER] 112.5 mg PO DAILY 07/25/18 Zolpidem Tartrate [Ambien] 10 mg PO QPM PRN 07/25/18 fentaNYL [Fentanyl 75mcg patch] 75 mcg TD Q3D 07/25/18
[2018-07-26] MEDS: ONDANSETRON 4 MG/2 ML VIAL IVP PRN (16:39)
[2018-07-26] MEDS ORDERED: POTASSIUM CHLORIDE 20 MEQ TABLET PO SCH (16:58)
[2018-07-26] MEDS: levoFLOXacin 750 MG/150 ML 750 MG/150 ML BAG IV SCH (22:13)
[2018-07-27] MEDS: SODIUM CHLORIDE FLUSH 0.9% 10 ML SYRINGE IVP SCH ×2 (00:19→08:19)
[2018-07-27] MEDS: PIPERACILLIN/TAZOBACTAM 4.5 GM in SODIUM CHLORIDE 0.9% MINIBAG 100 ML IV SCH (04:38)
[2018-07-27] MEDS: PANTOPRAZOLE 40 MG VIAL IVP SCH (06:28)
[2018-07-27 06:37] LABS: BASOPHILS % (AUTO) 1.5 %; EOSINOPHILS % (AUTO) 3.5 %; HGB - HEMOGLOBIN 10.6 g/dL (12.0-16.0); LYMPHOCYTES % (AUTO) 5.8 %; MEAN CORPUSCULAR HEMOGLOBIN 31.5 pg (27.0-31.0); MEAN CORPUSCULAR HGB CONC 34.5 g/dL (32.0-36.0); MEAN CORPUSCULAR VOLUME 91.4 fL (81.0-99.0); MEAN PLATELET VOLUME 7.4 fL (7.9-10.8); MONOCYTES % (AUTO) 16.7 %; NEUTROPHILS % (AUTO) 72.5 %; PLT - PLATELET COUNT 198 10^3/uL (130-450); RED BLOOD COUNT 3.35 10^6/uL (4.20-5.40); RED CELL DISTRIBUTION WIDTH 14.6 % (12.0-15.0); WHITE BLOOD COUNT 6.5 x10^3/uL (4.8-10.8)
[2018-07-27] MEDS: LEVOTHYROXINE 25 MCG TABLET PO SCH (06:38)
[2018-07-27] MEDS: LEVOTHYROXINE 112 MCG TABLET PO SCH (06:38)
[2018-07-27 06:50] LABS: CALCIUM 7.6 mg/dL (8.5-10.3); CREATININE 1.1 mg/dL (0.4-1.0)
[2018-07-27 06:52] LABS: ABNORMAL LYMPHS % (MANUAL) 0 %
[2018-07-27 07:27] LABS: BAND NEUTROPHILS % (MANUAL) 9 %; BASOPHILS # (MANUAL) 0.1 10^3/uL (0-0.1); BASOPHILS % (MANUAL) 1 %; DIFFERENTIAL COMMENT MANUAL DIFFERENTIAL; EOSINOPHILS # (MANUAL) 0.5 10^3/uL (0-0.7); LYMPHOCYTES # (MANUAL) 0.6 10^3/uL (1.5-3.5); LYMPHOCYTES % (MANUAL) 9 %; MONOCYTES # (MANUAL) 0.7 10^3/uL (0.0-1.0); NEUTROPHILS # (MANUAL) 4.7 10^3/uL (1.5-6.6); NEUTROPHILS % (MANUAL) 64 %; PLATELET ESTIMATE, MANUAL NORMAL (130-450,000) (NORMAL); RBC MORPHOLOGY (MULTIPLE) NORMAL APPEARANCE (NORMAL)
[2018-07-27 07:50] VITALS: BP 131/79
[2018-07-27] MEDS: VENLAFAXINE ER 37.5 MG CAPSULE PO SCH (08:16)
[2018-07-27] MEDS: diltiaZEM CD 180 MG CAPSULE PO SCH (08:17)
[2018-07-27] MEDS: SACCHAROMYCES BOULARDII 250 MG CAPSULE PO SCH (08:18)
[2018-07-27] MEDS: POLYETHYLENE GLYCOL 3350 17 GM PACKET PO SCH (08:18)
[2018-07-27] MEDS: LOSARTAN 50 MG TABLET PO SCH (08:18)
[2018-07-27] MEDS: INSULIN ASPART 300 UNIT/3 ML PEN SUBQ SCH (08:21)
[2018-07-27] MEDS: TIMOLOL 0.5% OPHTH DROPS EACHEYE SCH (08:22)
--- NOTE | 2018-07-27 11:12 | Discharge Plan ---
Discharge Plan Disposition: Home, Self Care Condition: Fair Prescriptions: LORazepam [Lorazepam] 0.5 mg PO Q6HR PRN #10 tablet PRN Reason: Anxiety Amox/Clav 875/125 [Augmentin] 1 tab PO Q12H 3 Days #6 tablet Lidocaine Viscous 2% [Xylocaine Viscous 2%] 15 ml MM Q3H PRN #1 udc PRN Reason: Analgesia Diet: Soft Activity Restrictions: Activity as Tolerated Shower Restrictions: No Driving Restrictions: No Assistance Devices: Walker Weight Bearing: Full Weight Additional Instructions or Follow Up instructions: You presented to the emergency department with lethargy and a decreased level of consciousness. You were found to be dehydrated with pneumonia. You were treated with IV fluids and antibiotics through an IV. You know appear to be much improved and will be switched to oral antibiotics and are being discharged home to complete 3 additional days of antibiotic by mouth. I have prescribed you Augmentin which she will take twice a day. While you were here we also tested your stool and you do have some blood in your stool. It appears that you have been having black stools for a few weeks now. Our surgeon here was not willing to do an endoscopy on you especially in the setting of having a pneumonia. 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 On examination you were also found to have a dental cavity for which you need to see your dentist as soon as possible. Due to your infection we held 1 of your medications called Afinitor which you use for your cancer treatment. We held this because it is an immunosuppressive medication but we recommend that you restart it once you have completed treatment for your pneumonia on Sunday. Please follow-up with your oncologist as previously scheduled for further recommendations for treatment of your cancer. I am also prescribing you some Ativan which she can take for nausea or anxiety if you need it. You were having nausea initially when you were hospitalized but this appears to have resolved and now you are eating and drinking well. We encouraged that you continue to get good nutrition at home. No Smoking: If you smoke, Please STOP! Call for help. Follow-up with: Sherry Talbot PA-C [Primary Care Provider] -
--- NOTE | 2018-07-27 12:03 | DISCHARGE SUMMARY ---
Discharge Summary Admit Date: 07/24/18 Discharge Date: 07/27/18 Discharging Provider: Kirit Martinez MD Primary Care Provider: Sherry Talbot [facility] Code Status: Do Not Attempt Resuscitation Condition at Discharge: Fair Discharge Disposition: 01 Home, Self Care - DIAGNOSES Admission Diagnoses: 1. Metabolic encephalopathy 2. Black stools 3. Pneumonia 4. Controlled type 2 diabetes mellitus without complications, without long-term current use of insulin 5. Pain due to dental caries 6. Pain due to malignant neoplasm metastatic to bone 7. DO NOT INTUBATE resuscitation status 8. Metastatic malignant neuroendocrine tumor to liver. Discharge Diagnoses with Status of Each Condition: 1. Metabolic encephalopathy: Resolved 2. Black stools: Guarded 3. Healthcare associated pneumonia: Improving 4. Controlled type 2 diabetes mellitus without complications, without long-term current use of insulin: Stable 5. Pain due to dental caries: Guarded 6. Pain due to malignant neoplasm metastatic to bone: Stable 7. 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 S/p partial hepatectomy 06/12, removing 60% of her liver, with some improvement in her symptoms for about 6-8 months. Unfortunately this was found to be neuroendocrine in nature, metastatic with unknown primary. She has had work ups regarding trying to find the primary, including colonoscopy, and small bowel evaluation via capsules. She also had diagnosed in 07/2015 at thyroid mass, and received a total thyroidectomy, with a diagnosis of Heurthel Cell tumor. Disease progression May 2016 with lesions to the spine, with a biopsy confirmed diagnosis to L2 in 08/2016. She also had knee surgery during this time, and recovery has been complicated because of her intolerance to opioids, she does have severe nausea and vomiting. When she was found to have progre ssive bone mets she was started on monthly lanreotide and Xgeva. s/p palliative radiation 05/2017 to her right hip and spine, initially with some response but but mets then increased in severity. Imaging done on 11/07/2017 with pelvic MRI, shows increased metastatic bone lesions at the lumbar lower spine, sacrum, pelvis, and visualized proximal femurs which are new since previous study compared on 02/2016. Her thoracic MRI of the spine showed diffuse osseous metastatic disease, mild degenerative central canal stenosis and foraminal stenosis, but no evidence of cord or into canal soft tissue metastatic disease. Size of the lesions at the T4 is 1.2 x 1 cm, and T10 is1.4 x 1.1 cm. Her bone scan does show tracer uptake not only in the thoracic and lumbar spine, and pelvis, but bilaterally in the ribs, sternum, as well as suspicious appearance for denny metastatic disease in her arthroplasties. When she followed up with radiation oncology again, she was told that she is no longer a further candidate, or would benefit because of her disease burden and numerous lesions. She has been continued on lanreotide since 09/2016 and Xgeva changed to Afinitor 04/2018 because the disease was progressing. Pain had been an on going problem especially since she cannot take oral opioids for breakthrough pain due to nausea. She was started on fentanyl patch with methadone 12/2017 and is currently on Fentanyl 75 mcg. Gabapentin was started as well and increased over time and she is on 300 mg po tid. With her last visit with palliative care on 07/02/18: 1. Pain of neoplastic origin secondary to bony metastases. Patient currently on 75 mcg of fentanyl, does appear to be tolerating this well. Patient does not tolerate oral opioids, she does have some 25 mcg patches if we need to add to the regimen, she will take these on her trip. She is still currently on gabapentin 300 mg 3 times a day, this does appear to help with the shoulder pain. She is continuing to use the topical CBD which helps with sleep and also her bilateral shoulder discomfort. 2. Fatigue, multifactorial in origin. This most likely is also as a result of her Afinitor, increase in pain meds, and overall tumor burden. Patient is not distressed by this, his pacing activity, and looking forward to her trip. 3. Depression. Patient does not appear with any depressive symptoms today, is looking forward to her trip, is bright and engaged. She went on her trip to [place] and has been gone for 2 weeks. She went to go stay with family and see some friends. Her has been in contact with her and her friends on a daily basis. From the very beginning of the trip they were telling him that she was not doing well. She just was not eating, and getting weaker and weaker. She started having black stools. She got back from [place] and is sleeping more than ever. Even before she went to [place] she was sleeping up to 18 hours a day. Since back from [place] she is just not getting out of bed. She continues not to eat. Filomena summers has had 300 nory in the last 4-5 days. Her approach general surgery to see if she could get a colonoscopy. General surgery feels that doing a procedure at this point in time is fraught with its own difficulties with regards to treatment of whatever they find. She has a poor prognosis. Her disease is continue to progress in spite of palliative chemotherapy and is going downhill. General surgery will dictate their own consult. Her hemoglobin was 12. She has developed a light cough. Nausea and vomiting in the last few days. Generalized abdominal ache. But this is in a patient has had severe right upper quadrant pain because of her liver mass. Today, she was so sedated that she was becoming unresponsive and her brought her to the emergency room.In the emergency room she is afebrile, slightly tachycardic at 101 normotensive. She is very sedated. She had developed such severe pain all over her body today with her last fentanyl patch being 5 days ago that her changed her to a new fentanyl patch today. And working her up in the emergency room CT of the head was negative, CT of the abdomen had her with consolidation of the posterior basal segments of both lower lobes, left greater than right. Fatty infiltration of the liver with mature postoperative changes in the right lobe. She has new 1.5 cm and smaller oval subcutaneous nodules in a symmetrical fashion over both buttocks consistent with injection granulomata. Extensive bony metastatic disease. Colonic diverticulosis. But no acute abdominal disease. Bili is slightly elevated at 1.2. She was 0.9 July 22. AST and ALT are mildly chronically elevated. In a diabetic a random glucose is 196. And her hemoglobin is stable at 11.7 with a white cell count that is normal at 7.1. In discussing her end-of-life wishes, she has not thought about it. Her describes them both as very private people. They have not talked about it even with each other. This is a second marriage. They have been for 30 years. He tells me that her own mother does not know that she is sick. And that while the 2 children that she has no about their mom's illness, they have never had engaged conversations with her about treatment, or her wishes. - HOSPITAL COURSE Hospital Course: (1) Metabolic encephalopathy Assessment/Plan: Resolved with IVFs and abx Likely secondary to pneumonia and dehydration Patient is alert and back to her baseline mental status however still felt her memory was not as sharp as normal If she continues to have issues with memory or mentation she will need an MRI of her brain to rule out metastatic disease (2) Black stools Conclusion/Plan: In a patient whose had EGDs, colonoscopies, video endoscopies, small bowel enterography, all in an effort to identify her primary of her neuroendocrine metastatic disease. 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 General surgery feels that the patient is not a candidate for EGD given that the findings of EGD may lead to surgery for which the patient would be a poor candidate and may not survive. Patients baseline Hb is 12 and dropped to 9.9 but has remained stable and was 10.6 at discharge. She continues to have dark tarry stools which are occult blood positive. Patient is a Jehovah witness therefore no blood products. Patient was on IV protonix while hospitalized. This appears to be a very slow bleed from unknown source. Since surgery will not do EGD and the hb has been stable patient will follow up with GI as an outpatient for possible EGD if the dark stools continue. (3) Health Care Associated Pneumonia Conclusion/Plan: On CT scan. The distribution and area of where she has pneumonia leads me to suspect that she has significant atelectasis which is then led to this pneumonia. She was not hypoxic, nor did she have a fever or elevated white cell count. Given that the patient is undergoing chemotherapy and is immune compromised the patient was treated for healthcare associated pneumonia with IV Zosyn and Levaquin. The patient received IV antibiotics for 3 days with significant improvement in her symptoms. During this time the patient's everolimus was held and will continue to be held until she is completed treatment for her pneumonia at which time she can restart the medication. We did reach out to the patient's oncologist in regards to when she needed to restart the medication but were unable to get a hold of her oncologist. Patient was discharged home with oral Augmentin which she will take for an additional 4 days to complete treatment for pneumonia. Qualifiers: Pneumonia type: due to unspecified organism Laterality: bilateral Lung location: lower lobe of lung Qualified Code(s): J18.1 - Lobar pneumonia, unspecified organism (4) Controlled type 2 diabetes mellitus without complication, without long-term current use of insulin Conclusion/Plan: A1c is 8.2. Patient's metformin was held during hospitalization and she was placed on sliding scale insulin. The patient's blood glucose remained mildly elevated but stable. The patient was placed back on metformin at discharge. (5) Pain due to dental caries Conclusion/Plan: She is started on empiric antibiotic therapy for her pneumonia. Therapy should cover her for any dental infection. Patient was discharged with oral Augmentin which will also cover for a dental infection. The patient is scheduled to follow-up with her dentist on Sunday. (6) Pain due to malignant neoplasm metastatic to bone Conclusion/Plan: Patient's pain was well controlled with a fentanyl patch. The patient was con tinued on the fentanyl patch at discharge. (7) Metastatic malignant neuroendocrine tumor to liver Conclusion/Plan: Also mets to bone. Patients prognosis appears to be poor. Patient and still want full treatment. Patient's everolimus was held due to her pneumonia and will be restarted when she is completed treatment for pneumonia. Patient will follow up with her oncologist on Sunday. - ALLERGIES Allergies/Adverse Reactions: Allergies Allergy/AdvReac Type Severity Reaction Status Date / Time No Known Drug Allergies Allergy Verified 11/26/15 13:18 - MEDICATIONS Home Medications: Ambulatory Orders Medication Instructions Recorded Confirmed Hydrochlorothiazide 12.5 mg PO DAILY 08/31/15 07/25/18 Oxymetazoline HCl [Afrin] 2 spray NS QPM 08/31/15 07/25/18 Prochlorperazine [Compazine] 5 mg PO Q6HR PRN 08/31/15 07/25/18 Losartan [Cozaar] 50 mg PO DAILY 10/26/15 07/25/18 diltiaZEM CD [Cardizem Cd] 180 mg PO DAILY 10/26/15 07/25/18 Levothyroxine Sodium 137 mcg PO QDAC 03/08/16 07/25/18 Omeprazole [PriLOSEC] 20 mg PO QDAC 03/08/16 07/25/18 Rizatriptan Benzoate [Rizatriptan] 5 mg PO ONCE PRN 03/08/16 07/25/18 Lanreotide Acetate [Somatuline 120 mg SQ Q28D 04/10/17 07/25/18 Depot] Timolol 0.5% Ophth Drops [Timoptic 1 drops EACHEYE BID 08/28/17 07/25/18 0.5% Ophth Drops] Gabapentin 300 mg PO TID PRN 01/24/18 07/25/18 Loperamide [Imodium] 2 mg PO PRN PRN 01/29/18 07/25/18 Metformin HCl [Metformin HCl ER] 500 mg PO BIDWM 03/06/18 07/25/18 LORazepam [Ativan] 0.5 mg PO Q6HR PRN 05/07/18 07/25/18 Ondansetron [Zuplenz] 8 mg PO Q8HR PRN 05/07/18 07/25/18 Lidocaine HCl [Lidocaine HCl 15 ml MM Q3H PRN #100 ml 05/10/18 07/25/18 Viscous] Denosumab [Xgeva] 120 mg SUBQ Q28D 07/25/18 07/25/18 Venlafaxine ER [Effexor ER] 112.5 mg PO DAILY 07/25/18 07/25/18 Zolpidem Tartrate [Ambien] 10 mg PO QPM PRN 07/25/18 07/25/18 fentaNYL [Fentanyl 75mcg patch] 75 mcg TD Q3D 07/25/18 07/25/18 Amox/Clav 875/125 [Augmentin] 1 tab PO Q12H 3 Days #6 tablet 07/27/18 LORazepam [Lorazepam] 0.5 mg PO Q6HR PRN #10 tablet 07/27/18 Lidocaine Viscous 2% [Xylocaine 15 ml MM Q3H PRN #1 udc 07/27/18 Viscous 2%] - PHYSICAL EXAM AT DISCHARGE General Appearance: positive: No acute distress, Alert Eyes Bilateral: positive: Normal inspection, PERRL, EOMI, No lid inflammation, Conjunctivae nml, No scleral icterus ENT: positive: ENT inspection nml, Pharynx nml, No signs of dehydration, Oral lesions (left bottom molar with a dark ring ). negative: Purulent nasal drainage, Pharyngeal erythema Neck: positive: Nml inspection, Thyroid nml, No JVD, Trachea midline. negative: Thyromegaly, Lymphadenopathy (R), Lymphadenopathy (L), Carotid bruit Respiratory: positive: Chest non-tender, No respiratory distress, Rhonchi (Bases) Cardiovascular: positive: Regular rate & rhythm, No murmur, No gallop Peripheral Pulses: positive: 2+ Abdomen: positive: Non-tender, No organomegaly, Nml bowel sounds, No distention. negative: Guarding, Rebound, Hepatomegaly Back: positive: Nml inspection. negative: CVA tenderness (R), CVA tenderness (L) Skin: positive: Color nml, No rash, Warm, Dry. negative: Cyanosis, Diaphoresis, Pallor, Skin rash Extremities: positive: Non-tender, Full ROM, Nml appearance, Pedal edema (Mild bilateral ) Neurologic/Psychiatric: positive: Oriented x3, CN's nml (2-12), Motor nml, Sensation nml, Mood/affect nml - LABS Result Diagrams: 07/27/18 06:28 07/27/18 06:28 Other Lab Results: Laboratory Results WBC 6.5 x10^3/uL (4.8-10.8) 07/27/18 06: RBC 3.35 10^6/uL (4.20-5.40) L 07/27/18 06:28 Hgb 10.6 g/dL (12.0-16.0) L 07/27/18 06:28 Hct 30.6 % (37.0-47.0) L 07/27/18 06:28 MCV 91.4 fL (81.0-99.0) 07/27/18 06: MCH 31.5 pg (27.0-31.0) H 07/27/18 06:28 MCHC 34.5 g/dL (32.0-36.0) 07/27/18 06: RDW 14.6 % (12.0-15.0) 07/27/18 06: Plt Count 198 10^3/uL (130-450) 07/27/18 06:28 MPV 7.4 fL (7.9-10.8) L 07/27/18 06:28 Neut # (Auto) Not Reportable 07/27/18 06:28 Lymph # (Auto) Not Reportable 07/27/18 06:28 [place] # (Auto) Not Reportable 07/27/18 06:28 Eos # (Auto) Not Reportable 07/27/18 06:28 Baso # (Auto) Not Reportable 07/27/18 06:28 Absolute Nucleated RBC Not Reportable 07/27/18 06:28 Total Counted 100 07/27/18 06:28 Band Neuts % (Manual) 9 % (0-10) 07/27/18 06:28 Abnorm Lymph % (Manual) 0 % 07/27/18 06:28 Nucleated RBC % Not Reportable 07/27/18 06:28 Neutrophils # (Manual) 4.7 10^3/uL (1.5-6.6) 07/27/18 06:28 Lymphocytes # (Manual) 0.6 10^3/uL (1.5-3.5) L 07/27/18 06:28 Monocytes # (Manual) 0.7 10^3/uL (0.0-1.0) 07/27/18 06:28 Eosinophils # (Manual) 0.5 10^3/uL (0-0.7) 07/27/18 06:28 Basophils # (Manual) 0.1 10^3/uL (0-0.1) 07/27/18 06:28 Differential Comment MANUAL DIFFERENTIAL 07/27/18 06:28 Platelet Estimate NORMAL (130-450,000) (NORMAL) 07/27/18 06:28 RBC Morph Micro Appear NORMAL APPEARANCE (NORMAL) 07/27/18 06:28 PT 14.2 secs (9.9-12.6) H 07/24/18 15:25 INR 1.3 (0.8-1.2) H 07/24/18 15:25 Sodium 134 mmol/L (135-145) L 07/27/18 06:28 Potassium 3.7 mmol/L (3.5-5.0) 07/27/18 06:28 Chloride 102 mmol/L (101-111) 07/27/18 06:28 Carbon Dioxide 20 mmol/L (21-32) L 07/27/18 06:28 Anion Gap 12.0 (6-13) 07/27/18 06:28 BUN 7 mg/dL (6-20) 07/27/18 06:28 Creatinine 1.1 mg/dL (0.4-1.0) H 07/27/18 06:28 Estimated GFR (MDRD) 50 (>89) L 07/27/18 06:28 Glucose 159 mg/dL (70-100) H 07/27/18 06:28 POC Whole Bld Glucose 169 mg/dL (70 - 100) H 07/27/18 11:10 Glycated Hemoglobin 8.2 % (4.6-6.2) H 07/24/18 23:57 Estim Average Glucose 189 (70-100) H 07/24/18 23:57 Lactic Acid 1.6 mmol/L (0.5-2.2) 07/24/18 18:25 Calcium 7.6 mg/dL (8.5-10.3) L 07/27/18 06:28 Total Bilirubin 1.2 mg/dL (0.2-1.0) H 07/24/18 15:25 AST 57 IU/L (10-42) H 07/24/18 15:25 ALT 43 IU/L (10-60) 07/24/18 15:25 Alkaline Phosphatase 130 IU/L (42-121) H 07/24/18 15:25 Total Protein 7.4 g/dL (6.7-8.2) 07/24/18 15:25 Albumin 3.7 g/dL (3.2-5.5) 07/24/18 15:25 Globulin 3.7 g/dL (2.1-4.2) 07/24/18 15:25 Albumin/Globulin Ratio 1.0 (1.0-2.2) 07/24/18 15:25 Lipase 23 U/L (22-51) 07/24/18 15:25 Urine Color YELLOW 07/24/18 16:30 Urine Clarity CLEAR (CLEAR) 07/24/18 16:30 Urine pH 8.0 PH (5.0-7.5) H 07/24/18 16:30 Ur Specific [place] 1.015 (1.002-1.030) 07/24/18 16:30 Urine Protein TRACE mg/dL (NEGATIVE) 07/24/18 16:30 Urine Glucose (UA) 100 mg/dL (NEGATIVE) H 07/24/18 16:30 Urine Ketones 40 mg/dL (NEGATIVE) H 07/24/18 16:30 Urine Occult Blood NEGATIVE (NEGATIVE) 07/24/18 16:30 Urine Nitrite NEGATIVE (NEGATIVE) 07/24/18 16:30 Urine Bilirubin NEGATIVE (NEGATIVE) 07/24/18 16:30 Urine Urobilinogen 1 (NORMAL) E.U./dL (NORMAL) 07/24/18 16:30 Ur Leukocyte Esterase NEGATIVE (NEGATIVE) 07/24/18 16:30 Ur Microscopic Review NOT INDICATED 07/24/18 16:30 Urine Culture Comments NOT INDICATED 07/24/18 16:30 - DIAGNOSTIC IMAGING Diagnostic Imaging Results: Final report reviewed Diagnostic Imaging Results Comments: CT head Impression: No acute intracranial abnormality Abdomen/pelvis CT Impression: 1. Posterior bibasilar infiltrates. 2. Extensive bony metastatic to take disease. 3. Colonic diverticulosis Chest x-ray Impression: Posterior bibasilar infiltrates. - FOLLOW UP Follow Up: Patient presented with lethargy and altered mental status. She was found to have metabolic encephalopathy secondary to dehydration and pneumonia. Patient was treated with IV Zosyn and Levaquin for healthcare associated pneumonia and given IV fluids. The patient had improvement is now being discharged home with oral Augmentin. The patient was also having dark stools and had positive stool guaiac but hemoglobin remained stable so she will follow-up outpatient for GI consultation and possible EGD. The patient did have nausea during the hospitalization which was controlled prior to discharge. The patient's everolimus was held due to infection but will be restarted once her antibiotics are completed. The patient will follow up with her oncologist regarding her neuroendocrine tumor with metastasis. The patient was also found to have a dental cavity and will follow up with her dentist. - TIME SPENT Time Spent in Discharge (Minutes): 45
[2018-07-27] MEDS ORDERED: fentaNYL 50 MCG PATCH TOP SCH (18:00)
[2018-07-27] MEDS ORDERED: fentaNYL 25 MCG PATCH TOP SCH (18:00)
== END 2018-07-27 11:35 | disposition home or self-care (01) | DRG 70 ==
LOC: ED 14:59 → MS2 20:26
PROVIDERS: ADMIT Specialist; ATTEND Internal Medicine
DX: G93.41 Metabolic encephalopathy (principal); R41.82 Altered mental status, unspecified; K92.2 Gastrointestinal hemorrhage, unspecified; G43.909 Migraine, unspecified, not intractable, without status migrainosus; J18.1 Lobar pneumonia, unspecified organism; K06.8 Other specified disorders of gingiva and edentulous alveolar ridge; R52 Pain, unspecified; K57.91 Diverticulosis of intestine, part unspecified, without perforation or abscess with bleeding; C7A.098 Malignant carcinoid tumors of other sites; C7A.00 Malignant carcinoid tumor of unspecified site; C7B.03 Secondary carcinoid tumors of bone; E09.9 Drug or chemical induced diabetes mellitus without complications; T50.905A Adverse effect of unspecified drugs, medicaments and biological substances, initial encounter; C7B.02 Secondary carcinoid tumors of liver; E86.0 Dehydration; G89.3 Neoplasm related pain (acute) (chronic); T40.4X6A Underdosing of other synthetic narcotics, initial encounter; K02.9 Dental caries, unspecified; Y95 Nosocomial condition; E89.0 Postprocedural hypothyroidism; R11.2 Nausea with vomiting, unspecified; E11.9 Type 2 diabetes mellitus without complications; K21.9 Gastro-esophageal reflux disease without esophagitis; I10 Essential (primary) hypertension; F32.9 Major depressive disorder, single episode, unspecified; F41.9 Anxiety disorder, unspecified; N28.9 Disorder of kidney and ureter, unspecified; L92.9 Granulomatous disorder of the skin and subcutaneous tissue, unspecified; Z66 Do not resuscitate; Z85.850 Personal history of malignant neoplasm of thyroid; Z79.899 Other long term (current) drug therapy; Z92.3 Personal history of irradiation; Z79.84 Long term (current) use of oral hypoglycemic drugs
CPT/HCPCS: 36415; 70450; 71046; 74176; 80048; 80053; 81001; 81003; 82270; 83036; 83605; 83690; 85025; 85027; 85610; 87040; 87070; 87086; 87205; 87493; 96365; 96375; 99283; 99284

== ENCOUNTER 2018-07-30 12:47 | Outpatient (CLI) | payer MEDICARE, OTHER ==
--- NOTE | 2018-07-30 14:34 | CONSULTATION NOTE ---
Palliative Care Follow Up - Referral Referring Provider: Dr. 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 She is most recently hospitalized 07/24-07/27 with metabolic encephalopathy, black stools, healthcare associated pneumonia. She has just finished her antibiotics as of today, reports still has some shortness of breath with activity but has been much more active. She denies any cough, fever or chills. She does report though she is continue to have black stools, she had two yesterday, and one today. Denies any acute abdominal pain, no recurrent nausea, and has been able to eat and drink. She is anxious to meet with the oncologist, to find out if she can restart her oral chemotherapy, and also concern regarding next steps regarding ongoing black stools. Her pain is currently controlled on Duragesic 75 mcg, she has had some increased pain in her back and hips with her increased activity. She has restarted the gabapentin at 100 mg twice daily. She has titrated this before, and will titrate according to her pain level. Social History - Living Situation Living arrangement: At home Living Situation: With spouse/s.o. Support System: Patiently recently returned from a trip to [facility], Where she is originally from. She had gone with a girlfriend, and was very excited about this trip, unfortunately she had gotten quite ill with increased weakness, bleeding, and developing pneumonia. She is to her for 30 years, they have been here on [place] for 15 years. Both she and her are quite guarded and introvert's, has been able to have some discussion when hospitalized regarding need to further explore her goals of care and wishes. Medications/Allergies - Medications Home Medications: Ambulatory Orders Medication Instructions Recorded Confirmed Hydrochlorothiazide 12.5 mg PO DAILY 08/31/15 07/30/18 Oxymetazoline HCl [Afrin] 2 spray NS QPM 08/31/15 07/30/18 Prochlorperazine [Compazine] 5 mg PO Q6HR PRN 08/31/15 07/30/18 Losartan [Cozaar] 50 mg PO DAILY 10/26/15 07/30/18 diltiaZEM CD [Cardizem Cd] 180 mg PO DAILY 10/26/15 07/30/18 Levothyroxine Sodium 137 mcg PO QDAC 03/08/16 07/30/18 Omeprazole [PriLOSEC] 20 mg PO QDAC 03/08/16 07/30/18 Rizatriptan Benzoate [Rizatriptan] 5 mg PO ONCE PRN 03/08/16 07/30/18 Lanreotide Acetate [Somatuline 120 mg SQ Q28D 04/10/17 07/30/18 Depot] Timolol 0.5% Ophth Drops [Timoptic 1 drops EACHEYE BID 08/28/17 07/30/18 0.5% Ophth Drops] Gabapentin 100 mg PO BID 01/24/18 07/30/18 Loperamide [Imodium] 2 mg PO PRN PRN 01/29/18 07/30/18 Metformin HCl [Metformin HCl ER] 500 mg PO BIDWM 03/06/18 07/30/18 LORazepam [Ativan] 0.5 mg PO Q6HR PRN 05/07/18 07/30/18 Ondansetron [Zuplenz] 8 mg PO Q8HR PRN 05/07/18 07/30/18 Lidocaine HCl [Lidocaine HCl 15 ml MM Q3H PRN #100 ml 05/10/18 07/30/18 Viscous] Denosumab [Xgeva] 120 mg SUBQ Q28D 07/25/18 07/30/18 Venlafaxine ER [Effexor ER] 112.5 mg PO DAILY 07/25/18 07/30/18 Zolpidem Tartrate [Ambien] 10 mg PO QPM PRN 07/25/18 07/30/18 fentaNYL [Fentanyl 75mcg patch] 75 mcg TD Q3D 07/25/18 07/30/18 Lidocaine Viscous 2% [Xylocaine 15 ml MM Q3H PRN #1 udc 07/27/18 07/30/18 Viscous 2%] Everolimus [Afinitor] 10 mg PO .ON HOLD 07/30/18 07/30/18 - Allergies Allergies/Adverse Reactions: Allergies Allergy/AdvReac Type Severity Reaction Status Date / Time No Known Drug Allergies Allergy Verified 11/26/15 13:18 Review of Systems - Constitutional Constitutional: reports: Fatigue. denies: Fever - Ears, Nose & Throat Ears, Nose & Throat: reports: Mouth lesions, Dental pain - Cardiovascular Cardiovascular: reports: Exertional dyspnea, Decr. exercise tolerance - Respiratory Respiratory: reports: SOB with exertion. denies: Cough - Gastrointestinal Gastrointestinal: reports: Black stools, Early satiety, Good appetite (improved). denies: Nausea, Vomiting - Musculoskeletal Musculoskeletal: reports: Stiffness, Muscle weakness - Integumentary Integumentary: reports: Dryness - Neurological Neurological: reports: General weakness, Memory problems (improved but still with some residual STM issues) - Psychiatric Psychiatric: reports: Depression, Anxiety - Endocrine Endocrine: reports: Diabetes type 2 - Hematologic/Lymphatic Hematologic/Lymphatic: reports: Anemia - All Other Systems All Other Systems: reports: Reviewed and negative Physical Exam - Physical Exam General Appearance: positive: No acute distress Eyes Bilateral: positive: Normal inspection, Other (periorbital edema) ENT: positive: No signs of dehydration Neck: positive: Trachea midline Respiratory: positive: No respiratory distress Skin: positive: Dryness Extremities: positive: No pedal edema Neurologic/Psychiatric: positive: Oriented x3, Depressed mood/affect (worried about pending oncology visit) Palliative Care - POLST Patient has POLST: No Pain: Pain worsening, Location (see HPI) Tiredness/Fatigue: Moderate (4-6) Drowsiness/Sedation: Moderate (4-6) Nausea: Mild (1-3) Depression: Mild (1-3) Anxiety: Mild (1-3) Dyspnea: Mild (1-3) Anorexia: Mild (1-3), Weight loss Sleep: Sleeps well (used lorazepam with good results) Constipation: No - Palliative Care Discussion: Patient initially said she did not want to further explore advanced care planning, but did agree to take the forms. Did spend time explaining choices regarding CODE STATUS, ERIC ST, goals of care in the context of quality of life, weighing benefits and burdens of treatments as they arise. Referred back to her experience in the hospital, need to make these decisions prior to crisis, need to have a discussion and open up conversation with her Werner. She did have actually several questions, explored these in the context of this. Agreed they would spend time looking at the forms, and we would follow up at our next visit. They are waiting to find out the outcome of whether she can continue with treatment, also looking at the complexity regarding her teena has a Jehovah witness, which she would not accept blood transfusions. Impression and Recommendations - Palliative Care Impression: This is a 68-year-old woman with metastatic carcinoid tumor to the liver and bone, her Afinitor treatment is currently on hold. She is still experiencing the sequela of her acute hospitalization for altered mental status, black stools and signs and symptoms of bleeding, as well as hospital-acquired pneumonia. She is also due to have her acute dental pain/cavity dealt with tomorrow. Patient's pain is currently well controlled, improvement of her nausea, though still presents with significant fatigue. Palliative care to continue provide support around pain and symptom management and advanced care planning. Recommendations/Counseling Done: 1. Pain of neoplastic origin. Patient's pain currently controlled on fentanyl 75 mcg patch one every 3 days new Rx provided for 10 patches. She also was initiated back her gabapentin 100 mg twice daily, with instruction to titrate up further if needed for comfort. With increased weightbearing she has noted increased pain in her bilateral hips and back area. 2. Anorexia. Patient is hoping to get her tooth fixed tomorrow, this will help as far as oral intake, she also has a few mouth lesions. She is finding the lidocaine gel helpful in managing. She has progressed her diet, and actually is doing fairly well with food and fluids. Though she continues to present with weight loss. 3. Nausea. Currently controlled, does have multiple antiemetics available if n eeded. 4. Black stools. Awaiting outcome of oncology visit, for next steps. 5. Advanced care planning. Forms were provided, initiated conversation regarding 5 wishes, durable power of medical employee benefits attorney, conversation starter kit as well as the ERIC ST form. Counseling provided regarding goals of care, defining do not attempt resuscitation, and selected treatments versus full versus comfort focused treatments. Addressed all questions, encouraged further conversation between the 2 of them, for follow-up palliative care visit. Time Spent: 30 minutes with greater than 50% of this done in counseling coordination of care regarding advanced care planning, pain management, and psychosocial support regarding current situation.
== END 2018-07-30 12:48 | disposition home or self-care (01) ==
LOC: PC 12:47
PROVIDERS: ATTEND Nurse Practitioner Adult Health
DX: Z51.5 Encounter for palliative care (principal); G89.3 Neoplasm related pain (acute) (chronic); C78.7 Secondary malignant neoplasm of liver and intrahepatic bile duct; C79.51 Secondary malignant neoplasm of bone; R63.0 Anorexia; R19.5 Other fecal abnormalities; E11.9 Type 2 diabetes mellitus without complications; F32.9 Major depressive disorder, single episode, unspecified; F41.9 Anxiety disorder, unspecified; R53.83 Other fatigue
CPT/HCPCS: 99214

== ENCOUNTER 2018-08-27 12:13 | Outpatient (CLI) | payer MEDICARE, OTHER ==
--- NOTE | 2018-08-28 07:03 | CONSULTATION NOTE ---
Palliative Care Follow Up - Referral Referring Provider: Dr. Monica Thomas Time of Visit: 9504-9048 Ref[place] setting: [facility] [place] Referral Reason: Pain on neoplastic origin/met carcinoid tumor to liver/bones - Information Sources Records reviewed: RN notes reviewed, Previous records reviewed History/Review of Systems obtained from: Patient, Family ( Werner present for visit) Exam limitations: No limitations - History of Present Illness Update Brief HPI Update: This is a oliver 68-year-old woman with metastatic carcinoid tumor involving liver and bones. She was hospitalized end of June with metabolic encephalopathy, black stools, and healthcare associated pneumonia. She continues with severe fatigue, exacerbation of her depression, and now with worsening anemia. She did have her GI consult, unfortunately her EGD is not scheduled until September 08. She did not have her dental procedure, her tooth pain resolved, and found no abnormalities. She remains reticent to explore goals of care, but willing to engage in conversation today. Social History - Living Situation Living arrangement: At home Living Situation: With spouse/s.o. Support System: Patient lives with her Werner, and she is been to for 30 years. They are planning a trip to [facility] again in September. 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 Medications/Allergies - Medications Home Medications: Ambulatory Orders Medication Instructions Recorded Confirmed Hydrochlorothiazide 12.5 mg PO DAILY 08/31/15 08/27/18 Oxymetazoline HCl [Afrin] 2 spray NS QPM 08/31/15 08/27/18 Prochlorperazine [Compazine] 5 mg PO Q6HR PRN 08/31/15 08/27/18 diltiaZEM CD [Cardizem Cd] 180 mg PO DAILY 10/26/15 08/27/18 Levothyroxine Sodium 137 mcg PO QDAC 03/08/16 08/27/18 Omeprazole [PriLOSEC] 20 mg PO QDAC 03/08/16 08/27/18 Rizatriptan Benzoate [Rizatriptan] 5 mg PO ONCE PRN 03/08/16 08/27/18 Lanreotide Acetate [Somatuline 120 mg SQ Q28D 04/10/17 08/27/18 Depot] Timolol 0.5% Ophth Drops [Timoptic 1 drops EACHEYE BID 08/28/17 08/27/18 0.5% Ophth Drops] Gabapentin 100 mg PO BID 01/24/18 08/27/18 Loperamide [Imodium] 2 mg PO PRN PRN 01/29/18 08/27/18 Metformin HCl [Metformin HCl ER] 500 mg PO BIDWM 03/06/18 08/27/18 LORazepam [Ativan] 0.5 mg PO Q6HR PRN 05/07/18 08/27/18 Ondansetron [Zuplenz] 8 mg PO Q8HR PRN 05/07/18 08/27/18 Lidocaine HCl [Lidocaine HCl 15 ml MM Q3H PRN #100 ml 05/10/18 08/27/18 Viscous] Denosumab [Xgeva] 120 mg SUBQ Q28D 07/25/18 08/27/18 Venlafaxine ER [Effexor ER] 112.5 mg PO DAILY 07/25/18 08/27/18 Zolpidem Tartrate [Ambien] 10 mg PO QPM PRN 07/25/18 08/27/18 fentaNYL [Fentanyl 75mcg patch] 75 mcg TD Q3D 07/25/18 08/27/18 Lidocaine Viscous 2% [Xylocaine 15 ml MM Q3H PRN #1 udc 07/27/18 08/27/18 Viscous 2%] Everolimus [Afinitor] 10 mg PO .ON HOLD 07/30/18 08/27/18 - Allergies Allergies/Adverse Reactions: Allergies Allergy/AdvReac Type Severity Reaction Status Date / Time No Known Drug Allergies Allergy Verified 08/27/18 11:43 Review of Systems - Constitutional Constitutional: reports: Fatigue, Poor appetite, Weight stable (171). denies: Fever - Ears, Nose & Throat Ears, Nose & Throat: denies: Dental pain - Cardiovascular Cardiovascular: reports: Decr. exercise tolerance. denies: Chest pain - Respiratory Respiratory: denies: Cough, SOB at rest - Gastrointestinal Gastrointestinal: reports: Poor appetite, Early satiety, Other (reports dark stools/not black or sticky). denies: Nausea - Musculoskeletal Musculoskeletal: reports: Muscle weakness - Neurological Neurological: reports: General weakness, Other (some STM issues noted/unclear if confusion a) - Psychiatric Psychiatric: reports: Depression (reports worsening, tearful through visit) - Endocrine Endocrine: reports: Diabetes type 2 (having difficulty with glucometer) - Hematologic/Lymphatic Hematologic/Lymphatic: reports: Anemia (8.2 hemoglobin) - All Other Systems All Other Systems: reports: Reviewed and negative Physical Exam - Vital Signs Temperature: 36.8 C Pulse Rate: 101 Respiratory Rate: 18 O2 Saturation: 99 Blood Pressure: 116/76 (recently off losartin) - Physical Exam General Appearance: positive: Mild distress (tearful; feeling poorly) Eyes Bilateral: positive: No scleral icterus ENT: positive: Dry mucous membranes Neck: positive: No JVD, Trachea midline Cardiovascular: positive: Tachycardia Respiratory: positive: No respiratory distress Skin: positive: Dryness, Other (color very sallow/yellow tinged/patient was tanned) Extremities: positive: No pedal edema Neurologic/Psychiatric: positive: Oriented x3, Weakness, Depressed mood/affect, Flat affect Palliative Care - POLST Patient has POLST: No Pain: Pain worsening, Location (Patient reports pain for over 10. She is currently on Duragesic 75 mcg patch q. 3 days. She has increased her gabapentin over this last week to 300 mg twice daily. She does have days that her pain is intolerable, unable to quantify how many versus tolerable days. She identifies her pain in her knees, bilateral hips and groin, and right lower rib as well as right shoulder. She does have mid lower back lumbar and thoracic pain. She has developed some spasms that she identifies is new bilateral in her hips. These are not related to any activity, timing, weightbearing. Patient has poor opioid tolerance, so has nothing at this point in time to use for breakthrough pain, acetaminophen is not effective. They have used topical CBD oil on her back with good effect.) Tiredness/Fatigue: Severe (7-10) Drowsiness/Sedation: Severe (7-10) Nausea: Mild (1-3) Depression: Severe (7-10) Anxiety: Moderate (4-6) Dyspnea: None Anorexia: Mild (1-3) Sleep: Sleeps poorly (Discussed insomnia, patient awakens with high anxiety. Does get up for an hour or 2, is starting to get her days switched around as far as days and night sleeping more during the day. Has used Ambien in the past with good results, currently does not have any. She has also used intermittent Lorazepam though not finding this as effective.) Constipation: No Feelings of wellbeing/Perceived Quality of Life: Fair Performance Status: Patient able to attend her own ADLs, walk short distances. With her increased fatigue has been more sedentary. - Palliative Care Discussion: Patient has found it very difficult to talk about end-of-life planning, her cancer diagnosis, gets very tearful and often shuts conversation down. Had asked him to review 5 wishes, ERIC ST form, patient is a Taoism, is very clear no blood transfusions, but are asking about iron transfusions. She does not want intubation if she is in "a terminal state" but it is okay if it is really unrelated to her cancer. This is similar to her communication around CP R. She remains ambivalent as far as end-of-life regarding her cancer diagnosis, she is willing for acute hospitalization if life support or treatment may be of help, but if she is in a coma or not expected to recover she does not want it and if it has been started she wants it stopped these are answers on forms from 5 wishes. At end of life she wants to be cremated. Spent time discussing again the ERIC ST, the intent of this form is to inform the healthcare system and EMS regarding her emergent or urgent wishes, particularly if her situation is such that she needs to be resuscitated. This conversation defaults back to again whether it is related to her cancer diagnosis or not. We did discuss in the context of most likely what is to happen it will be related to her cancer or sequela of her cancer. Given her an ambuguity, her previous distress of recent hospitalization, would not recommend proceeding with the POLST, but educated on the EMS will be full code if this form is not in place and same until conversation had with her or Werner on hospital/ED admission. They do feel they have moved somewhat as far as understanding her wishes, but remain reticent to engage in a full conversation. We did discuss though it would be helpful for myself, to know for her end-of-life wishes, what is going to be most important to her, given her affinity and family presence on [place], if this is her plan would be helpful to know for future planning and support. Results - Lab Results Lab results reviewed: Yes Lab and Imaging Results: Patient quite pale on admit to [facility] [place], labs ordered regarding her creatinine as well as kidney function to proceed with Xgeva. Her hemoglobin was 8.2, on discharge from hospital 06/2910.6, reports couple weeks ago at GI it was around 10 as well. Her hematocrit is 24.0. Patient does appear somewhat dry, as had MRI this morning. Spoke with oncology, iron studies added iron 45, TIBC 346, 13% iron binding, 247 transfer as needed, ferritin 25.7 Impression and Recommendations - Palliative Care Impression: This is a 68-year-old woman with metastatic carcinoid tumor to the liver and bone, continues with her Afinitor treatment. She does have dropping hemoglobin, increasing fatigue, and presents with an exacerbation of depression. Patient's pain remains problematic, will continue to monitor her but may need increase in her Duragesic. Palliative care to continue to provide support for pain and symptom management and anticipatory guidance as she allows. Recommendations/Counseling Done: 1. Pain of neoplastic origin. Patient currently on fentanyl 75 mcg patch one e very 3 days, new Rx provided for 10 patches. She is titrated her gabapentin up to 300 mg twice a day, explored other means for breakthrough pain management. Encouraged to try CBD either edibles or oil/tinctures. She has find the topical on her back helpful. She does report new symptoms of spasms in her hip, no recent falls, no ability to correlate with weightbearing or positioning. Patient has been asked to track more closely effectiveness of current regimen, if need to titrate medications up. 2. Fatigue, this is multifactorial in origin. Patient does have increased anemia, and iron studies added to current blood draw. Patient without acute symptoms of bleeding, will call GI doctor though and see about rescheduling EGD earlier. Oncology service to add iron transfusions. 3. Depression. Patient currently on Effexor ER, does feel depression is worse today. Suspect this is multifactorial including feeling poorly. Will monitor at this point, patient is not interested in counseling or support. 4. Advanced care planning. Encouraged to get DPO a for medical decision making completed, though defaults to Werner, it is good to have a second person. At this point in time they identify her son, but he is in [place]. It does not sound like though he has been actively involved in any of her care and/or would be informed regarding her wishes. She had been in attempt to work with 5 wishes, this was able to facilitate some conversation, address questions or concerns regarding the POLST. This remains quite difficult for them, did request though if able to explore end-of-life wishes, to be able to facilitate at the point that might be of need. Time Spent: Time spent 60 minutes with greater than 50% of this done in counseling regarding advanced care directives, symptom management, and goals of care.Coordination of care with oncology service, labs, and follow-up regarding iron transfusions
== END 2018-08-27 12:14 | disposition home or self-care (01) ==
LOC: PC 12:13
PROVIDERS: ATTEND Nurse Practitioner Adult Health
DX: Z51.5 Encounter for palliative care (principal); G89.3 Neoplasm related pain (acute) (chronic); C78.7 Secondary malignant neoplasm of liver and intrahepatic bile duct; C79.51 Secondary malignant neoplasm of bone; R53.83 Other fatigue; F32.9 Major depressive disorder, single episode, unspecified; D64.9 Anemia, unspecified; R53.1 Weakness; M62.81 Muscle weakness (generalized); E11.9 Type 2 diabetes mellitus without complications; Z79.84 Long term (current) use of oral hypoglycemic drugs; F41.9 Anxiety disorder, unspecified
CPT/HCPCS: 99215

== ENCOUNTER 2018-09-03 18:25 | Outpatient (CLI) | payer MEDICARE, OTHER | END 2018-09-03 18:26 | disposition short-term general hospital (02) | LOC: EMS 18:25 | PROVIDERS: ATTEND Surgery | DX: R53.1 Weakness (principal); R53.83 Other fatigue; R41.82 Altered mental status, unspecified | CPT/HCPCS: A0170; A0425; A0427 ==